=== PATIENT | male | born 1935 | race Caucasian/White ===

== ENCOUNTER 2017-01-27 11:03 | Inpatient (IN) | payer MEDICARE ==
[2017-01-27] VITALS (11 sets, daily range): BP systolic 91–108; BP diastolic 39–61
[~2017-01-27] VITALS: Ht 172.7 cm; Wt 82.2 kg
--- NOTE | 2017-01-27 11:06 | NUR ---
ARIC FROM HOME DUE TO ALTERED MENTAL STATUS SINCE THIS MORNING. PATIENT IS AAO3,HOWEVER PATIENT APPEARS IN MILD DISTRESS, SATING 91% ON ROOM AIR. NO CHEST PAINL. PT HAS LEFT HIP SX LAST December, IRASEMA STILL ON. NOTED WITH MULTIPLE OPEN WOUND ON LFA, BOTH HEELS AND BUTTOCKS. FC NOTED WITH DARK COLORE DEVIN. GOWNED PT AND PLACED ON TELE MONITOR.
[2017-01-27] MEDS ORDERED: ASPI81TA2 PO (11:17)
[2017-01-27] MEDS ORDERED: SPIR25TA4 PO (11:17)
[2017-01-27] MEDS ORDERED: TEMA15CA PO (11:17)
[2017-01-27] MEDS ORDERED: HYDR-3326 PO (11:17)
[2017-01-27] MEDS ORDERED: ALLO100T PO (11:17)
[2017-01-27] MEDS ORDERED: CARV6.252 PO (11:17)
[2017-01-27] MEDS ORDERED: POTA10TA15 PO (11:17)
[2017-01-27] MEDS ORDERED: PREG50CA PO (11:17)
[2017-01-27] MEDS ORDERED: LINA5TAB PO (11:17)
[2017-01-27] MEDS ORDERED: LEVO88TA5 PO ×2 (11:17)
[2017-01-27] MEDS ORDERED: AMIO200T2 PO (11:17)
[2017-01-27] MEDS ORDERED: ATOR40TA PO (11:17)
[2017-01-27] MEDS ORDERED: FURO40TA5 PO (11:17)
[2017-01-27] MEDS ORDERED: SERT50TA PO (11:17)
[2017-01-27] MEDS ORDERED: CHOL100044 PO (11:17)
[2017-01-27] MEDS ORDERED: TAMS-12 PO (11:17)
[2017-01-27] MEDS ORDERED: APIX2.5T PO (11:17)
[2017-01-27] MEDS ORDERED: IV NS 0.9% 500 ML IV ONE (11:21)
[2017-01-27] MEDS ORDERED: IV SET PRIMARY PUMP SET 1 EA INFUS.SET MC ONE ×2 (11:21→20:51)
[2017-01-27] MEDS ORDERED: IV NS 0.9% 2,000 ML ONE (11:21)
[2017-01-27 11:24] LABS: EOSINOPHILS # (AUTO) 0.1 /CMM (0.0-0.7); HEMOGLOBIN 8.8 g/dL (13.5-17.5); MONOCYTES # (AUTO) 0.5 /CMM (0.1-1.30); WHITE BLOOD COUNT (AUTO) 14.7 K/uL (4.3-11.0)
--- NOTE | 2017-01-27 11:26 | NUR ---
IV ACCESSED TO LEFT HAND,. BLOOD SAMPLE SENT
[2017-01-27 11:28] LABS: BASOPHILS # (AUTO) 0.3 /CMM (0.0-0.2); BASOPHILS % (AUTO) 1.9 % (0.0-2.0); EOSINOPHILS % (AUTO) 0.7 % (0.0-6.0); HEMATOCRIT 27 % (39-51); LYMPHOCYTES # (AUTO) 0.7 /CMM (0.8-4.8); MEAN CORPUSCULAR HEMOGLOBIN 28 PG (26.0-33.0); MEAN CORPUSCULAR HGB CONC 33 g/dl (31.0-36.0); MEAN CORPUSCULAR VOLUME 87 fL (80-96); MONOCYTES % (AUTO) 3.6 % (2.0-12.0); NEUTROPHILS # (AUTO) 13.1 /CMM (1.8-8.9); NEUTROPHILS % (AUTO) 88.8 % (43.0-81.0); PLATELET COUNT (AUTO) 250 /CMM (150-450); RDW COEFFICIENT OF VARIATION 23.4 (11.5-15.0); RED BLOOD CELL COUNT(AUTO) 3.11 MIL/uL (4.5-6.0)
[2017-01-27] MEDS ORDERED: CEFEPIME 1 GM in IV D5W 50 ML IV ONE (11:30)
[2017-01-27] MEDS ORDERED: IV NS 0.9% 1,000 ML BAG IV ONE (11:30)
[2017-01-27] MEDS ORDERED: VANCOMYCIN 1 GM in IV D5W 250 ML IV ONE (11:30)
[2017-01-27 11:40] LABS: INR 1.83 (0.87-1.13); PROTHROMBIN TIME 19.7 SECS (9.5-12.7)
[2017-01-27 11:49] LABS: ALANINE AMINOTRANSFERASE 43 U/L (12-78); ALBUMIN 2.1 g/dL (3.4-5.0); ALKALINE PHOSPHATASE 175 U/L (46-116); ASPARTATE AMINOTRANSFERASE 100 U/L (15-37); B-TYPE NATRIURETIC PEPTIDE 18520 PG/ML (0-125); BILIRUBIN,DIRECT 1.3 mg/dL (0.0-0.2); BILIRUBIN,TOTAL 2.3 mg/dL (0.2-1.0); CARBON DIOXIDE 24 mmol/L (21-32); CHLORIDE 107 mmol/L (98-107); CREATININE 2.4 mg/dL (0.6-1.3); GLUCOSE 88 mg/dL (74-106); SODIUM SERUM 137 mmol/L (136-145); TOTAL PROTEIN, SERUM 5.7 g/dL (6.4-8.2)
[2017-01-27 11:50] LABS: APPEARANCE,URINE CLOUDY (CLEAR); BILIRUBIN,URINE NEGATIVE (NEGATIVE); BLOOD, URINE 3+ Ery/uL (NEGATIVE); COLOR,URINE ORANGE (YELLOW); KETONES,URINE NEGATIVE (NEGATIVE); LEUKOCYTE ESTERASE ,URINE 2+ (NEGATIVE); NITRITE, URINE NEGATIVE (NEGATIVE); PH,URINE 5.5 (5.0-8.0); PROTEIN,URINE 2+ mg/dl (NEGATIVE); UGLUCOSE NEGATIVE (NEGATIVE)
[2017-01-27 11:51] LABS: POTASSIUM 5.2 mmol/L (3.5-5.1); UREA NITROGEN, BLOOD 101 mg/dL (7-18)
[2017-01-27 12:02] LABS: BACTERIA,URINE Few /HPF (None Seen); SQUAMOUS EPITHELIAL CELL,UR Few /HPF (None Seen); WBC,URINE TOO NUMEROUS TO COUN /HPF (0-3)
--- NOTE | 2017-01-27 12:33 | NUR ---
rt at bedside for cpap
[2017-01-27 12:35] LABS: ABG BASE EXCESS -4.1 mmol/L; ABG OXYGEN SATURATION 99.1 % (92.0-98.5); ABG PCO2 36.4 mmHg (35.0-45.0); ABG PH 7.373 (7.350-7.450); ABG PO2 335.2 mmHg (75.0-100.0); AaDO2 341.4 mmHg; COHb 1.8 % (0.5-1.5); MetHb 0.5 % (0.0-1.5); O2Hb 96.8 % (94.0-97.0); SITE, ABG Right Radial; VENT MODE, BG NRB @ 15LPM
--- NOTE | 2017-01-27 12:39 | NUR ---
RT POST ABG RESULTS SHOWN TO DR. CUEVAS. PLACED PT ON BiPAP PER MD ORDER WITH FOLLOWING SETTINGS: 15/5, BUR 12, 35% FiO2. TYSON RN NOTIFIED AND AWARE. WILL CONTINUE TO MONITOR THE PATIENT FOR ANY CHANGE OF CONDITION.
--- NOTE | 2017-01-27 12:41 | NUR ---
bipap setting 15/5, r12 fio2 35%
[2017-01-27] MEDS ORDERED: NOREPINEPHRINE 8 MG in IV D5W 500 ML IV ONE (13:00)
--- NOTE | 2017-01-27 15:42 | NUR ---
Pt on bed, on bipap as ordered, levo ongoing
--- NOTE | 2017-01-27 16:46 | NUR ---
Patient transported to icu via acls protocol. aware-- at bedside
--- NOTE | 2017-01-27 17:40 | NUR ---
SPEECH COMMUNICATION INSTRUCTOR PT ADMITTED INTO ICU FROM ER BY ROCCO WITH MONITOR. REPORT RECEIVED FROM AERIAL TRAM OPERATOR. PT ADMITTED FOR ALOC AND RESP DISTRESS. PT WAS ON BIPAP IN ER.
[2017-01-27] MEDS ORDERED: ONDANSETRON HCL/PF 4 MG/2 ML VIAL IVP PRN (18:00)
[2017-01-27] MEDS: TAMSULOSIN 0.4 MG CAP.SR.24H PO SCH (18:00)
[2017-01-27] MEDS ORDERED: PHENYLEPHRINE 20 MG in IV D5W 250 ML IV PRN (18:00)
[2017-01-27] MEDS ORDERED: MEROPENEM 1 G in IV NS 0.9% 100 ML IV SCH (18:00)
[2017-01-27] MEDS ORDERED: ATORVASTATIN 40 MG TABLET PO SCH (18:00)
[2017-01-27] MEDS ORDERED: ASPIRIN 81 MG TAB.CHEW PO SCH (18:00)
[2017-01-27] MEDS ORDERED: ACETAMINOPHEN 325 MG TABLET PO PRN (18:00)
[2017-01-27] MEDS ORDERED: BUMETANIDE INJ 0.25 MG/ML VIAL IV ONE (18:30)
[2017-01-27 18:36] LABS: ABG BASE EXCESS -3.3 mmol/L; ABG OXYGEN SATURATION 96.6 % (92.0-98.5); ABG PCO2 35.9 mmHg (35.0-45.0); ABG PH 7.389 (7.350-7.450); ABG PO2 95.1 mmHg (75.0-100.0); AaDO2 112.7 mmHg; COHb 2.2 % (0.5-1.5); MetHb 0.9 % (0.0-1.5); O2Hb 93.6 % (94.0-97.0); SITE, ABG Right Radial
[2017-01-27] MEDS ORDERED: FEE PK DOSING 1 MIN EA MC ONE (18:55)
--- NOTE | 2017-01-27 20:00 | NUR ---
RN INITIAL NOTE; PT ON BIPAP , 15/5 ,RR 12 ,FIO2 35 % , PT IS AROUSABLE TO VERBAL RESPONSE. NO ANY DISTRESS NOTED AT THIS TIME . WILL CONTINUE TO MONITOR .
[2017-01-27] MEDS: MEROPENEM 500 MG in IV NS 0.9% 50 ML IV SCH (20:50)
[2017-01-27] MEDS ORDERED: SECONDARY IV SET 1 EA INFUS.SET MC ONE (20:51)
[2017-01-27] MEDS ORDERED: IV NS 0.9% 250 ML IV ONE (20:51)
--- NOTE | 2017-01-27 21:46 | NUR ---
SPRINKLER WORKER NOTE; RECEIVED ORDER FROM DR MORALES TO CONTINUE LEVOPHED DRIP TO MAINTAIN BP ORDERED AND HOLD NEOSYNEPHRINE AT THIS TIME. RECEIVED ORDER FOR TYLENOL SUPP. PRN FOR FEVER.
[2017-01-27] MEDS ORDERED: NOREPINEPHRINE 8 MG in IV D5W 500 ML IV PRN (22:00)
[2017-01-27] MEDS ORDERED: ACETAMINOPHEN 650 MG/SUPP.RECT RC PRN (22:00)
[2017-01-27] MEDS: NOREPINEPHRINE 8 MG in IV D5W 500 ML IV PRN (22:03)
--- NOTE | 2017-01-27 22:04 | NUR ---
LOW ALTITUDE AIR DEFENSE GUNNER NOTE; PO MEDS SCHEDULED FOR 1800 NON ADMIN DUE TO PT UNABLE TO SWALLOW AT THIS TIME, DR MORALES NOTIFIED . CHARGE NURSE AWARE.
--- NOTE | 2017-01-27 22:07 | NUR ---
RECREATIONAL VEHICLE REPAIRER NOTE; REMOVED BIPAP BY RT , ON NASAL CANNULA 4 LPM AT THIS TIME . SPO2 100 % . NO DISTRESS . WILL CONTINUE TITRATION. ONGOING MONITOR .
--- NOTE | 2017-01-27 23:32 | NUR ---
ASSIGNMENT CHANGED REPORT GIVEN TO PATRICK MORA .
--- NOTE | 2017-01-27 23:50 | NUR ---
CASE ASSISTANT: PT RECEIVE AWAKE AND VERBALLY RESPONSIVE WT CONFUSION. ABLE TO FOLLOW SIMPLE COMMANDS. PLACED ON 2L 02 VIA NC WT NO ACUTE DISTRESS. NO C/O PAIN OR EVIDENCE OF DISCOMFORT. F/C CHANGED AND TOLERATED WELL DRAINING FROM PINK TINGED TO CLEAR YELLOW URINE. SR-SB ON MAGNETIC PROSPECTING SUPERVISOR. ON LEVOPHED AT 4MCG/MIN. AFEBRILE. SAFETY PRECAUTION NOTED. WILL CONTINUE TO MONITOR.
[2017-01-28] VITALS (87 sets, daily range): BP systolic 34–114; BP diastolic 17–64
[2017-01-28] MEDS ORDERED: NOREPINEPHRINE 4 MG/4 ML AMPUL IV ONE (03:07)
[2017-01-28] MEDS ORDERED: IV D5W 500 ML IV ONE (03:08)
[2017-01-28 04:42] LABS: EOSINOPHILS % (AUTO) 0.1 % (0.0-6.0); HEMATOCRIT 29 % (39-51); HEMOGLOBIN 9.6 g/dL (13.5-17.5); LYMPHOCYTES # (AUTO) 0.4 /CMM (0.8-4.8); LYMPHOCYTES % (AUTO) 2.7 % (20.0-44.0); MEAN CORPUSCULAR HEMOGLOBIN 29 PG (26.0-33.0); MEAN CORPUSCULAR HGB CONC 33 g/dl (31.0-36.0); MEAN CORPUSCULAR VOLUME 89 fL (80-96); MONOCYTES # (AUTO) 1.3 /CMM (0.1-1.30); MONOCYTES % (AUTO) 8.1 % (2.0-12.0); NEUTROPHILS # (AUTO) 14.2 /CMM (1.8-8.9); NEUTROPHILS % (AUTO) 89.1 % (43.0-81.0); PLATELET COUNT (AUTO) 284 /CMM (150-450); RDW COEFFICIENT OF VARIATION 26.6 (11.5-15.0); WHITE BLOOD COUNT (AUTO) 15.9 K/uL (4.3-11.0)
[2017-01-28 04:53] LABS: INR 1.72 (0.87-1.13); PROTHROMBIN TIME 19.1 SECS (9.5-12.7); SERUM AMMONIA 44 umol/L (11-32)
[2017-01-28 05:01] LABS: ALANINE AMINOTRANSFERASE 53 U/L (12-78); ALBUMIN 2.1 g/dL (3.4-5.0); ALKALINE PHOSPHATASE 177 U/L (46-116); ASPARTATE AMINOTRANSFERASE 100 U/L (15-37); BILIRUBIN,TOTAL 2.4 mg/dL (0.2-1.0); CARBON DIOXIDE 25 mmol/L (21-32); CHLORIDE 109 mmol/L (98-107); CREATININE 2.2 mg/dL (0.6-1.3); GLUCOSE 137 mg/dL (74-106); MAGNESIUM 2.1 mg/dL (1.8-2.4); PHOSPHORUS 4.8 mg/dL (2.5-4.9); POTASSIUM 3.8 mmol/L (3.5-5.1); SODIUM SERUM 143 mmol/L (136-145); TOTAL PROTEIN, SERUM 5.8 g/dL (6.4-8.2)
[2017-01-28 05:06] LABS: CHOLESTEROL 59 mg/dL (<200); HDL CHOLESTEROL 12 mg/dL (40-60); LDL 25 mg/dL (0-99); THYROID STIMULATING HORMONE 6.364 uIU/mL (0.358-3.74); TRIGLYCERIDES 61 mg/dL (30-150)
[2017-01-28 05:13] LABS: UREA NITROGEN, BLOOD 94 mg/dL (7-18)
--- NOTE | 2017-01-28 06:40 | NUR ---
TALENT ACQUISITION PARTNER: STILL ON LEVOPHED AT 6MCG/MIN. SR-SB ON MONITOR. REMAINED AT 2L 02 VIA NC WT NO ACUTE DISTRESS.
[2017-01-28] MEDS: NOREPINEPHRINE 8 MG in IV D5W 500 ML IV PRN (06:47)
[2017-01-28] MEDS ORDERED: NOREPINEPHRINE 8 MG in IV D5W 500 ML IV PRN (07:22)
[2017-01-28] MEDS ORDERED: IV SET PRIMARY PUMP SET 1 EA INFUS.SET MC ONE (07:25)
[2017-01-28] MEDS ORDERED: DoBUTamine 500 MG/250 ML PIGGYBACK IV ONE (07:30)
--- NOTE | 2017-01-28 07:30 | NUR ---
ROVING WINDER: pt.is very drowsy, oriented x2, no any pain, HR 50-60SB, Levophed gtt 6mcg/min now, O2 sat. over 94% on 2L n/c, all wounds dressings care is done client relationship consultant by report, charge nurse spoke with -ordered: start Dobutamine gtt with 5mcg, max 7mcg dose, after: titrate off Levophed, keep SBP over 90, see orders, pharmacy notified, RT is aware re EKG order
[2017-01-28] MEDS: MEROPENEM 500 MG in IV NS 0.9% 50 ML IV SCH ×2 (08:02→18:13)
--- NOTE | 2017-01-28 08:30 | NUR ---
CURTAIN FRAMER: pt.is A/Ox2, can follow commands, but weak, no c/o now, waiting wounds care consult, swallow evaluation, waiting Dobutamine bag/called to pharmacy again, EKG done: SB with 1st AVB
[2017-01-28] MEDS: PREGABALIN 25 MG CAPSULE PO SCH ×3 (08:39→17:11)
[2017-01-28] MEDS: SERTRALINE HCL 50 MG TABLET PO SCH (08:39)
[2017-01-28] MEDS: CHOLECALCIFEROL 1,000 UNIT TABLET (VIT D3) PO SCH (08:39)
[2017-01-28] MEDS: ALLOPURINOL 100 MG TABLET PO SCH (08:39)
[2017-01-28] MEDS: APIXABAN 2.5 MG TABLET PO SCH ×2 (08:40→17:10)
[2017-01-28] MEDS: DOBUTamine 500 MG in IV D5W 210 ML IV PRN ×2 (08:55→21:34)
[2017-01-28] MEDS ORDERED: CARVEDILOL 6.25 MG TABLET PO SCH (09:00)
[2017-01-28] MEDS ORDERED: AMIODARONE HCL 200 MG TABLET PO SCH (09:00)
--- NOTE | 2017-01-28 09:15 | NUR ---
BAND SCROLL SAW OPERATOR: notified pharmacist, Sandro: Dobutamine bag is 500mg/250ml, but this is IV pump option 500mg/300ml setting/unable to change, Corryw/c nurse evaluted pt./see new orders, L.hip w/culture
--- NOTE | 2017-01-28 09:30 | NUR ---
TWX OPERATOR: notified ST re christi eval.order
[2017-01-28] MEDS ORDERED: HYDROGEL DRESSING 90 GM TUBE TP PRN (10:00)
[2017-01-28] MEDS ORDERED: Z GUARD REMEDY 2 OZ OINT TP PRN (10:00)
[2017-01-28] MEDS ORDERED: HYDROGEL DRESSING 90 GM TUBE TP SCH (10:00)
--- NOTE | 2017-01-28 10:22 | NUR ---
CRIMP SETTER: continue titrate off Levophed gtt, is in room, updated with pt.current condition, pressor drips, VS, orders, wounds
--- NOTE | 2017-01-28 10:40 | NUR ---
TANNING SOLUTION MAKER: LENNY Siddiqui evaluated all pt.wounds, said: don't apply Hydrogel for sacral area, ordered Idosorb for heels, R.foot is little cold by touch, ordered for arterial dplr
--- NOTE | 2017-01-28 11:20 | NUR ---
OVER THE ROAD DRIVER: is in room, notified re pt.history, VS, pressors, respiratory status, orders, wounds
--- NOTE | 2017-01-28 11:40 | NUR ---
CORPORATE STAFF ACCOUNTANT: is in room, spoke with pt., updated with pt.current condition, Dobutamine gtt 7 mcg/kg/m, Levophed is off now, VS, I/O, swallow eval.pending, wounds status/Tx orders/L.hip wound with mykel bloody oozing/w/c done, pain level, see new orders
[2017-01-28] MEDS: VANCOMYCIN 0.75 GM in IV D5W 250 ML IV SCH (11:44)
[2017-01-28] MEDS: Z GUARD REMEDY 2 OZ OINT TP SCH (12:47)
[2017-01-28] MEDS ORDERED: DEXTROSE 50%-WATER 50 ML DISP.SYRIN IV PRN (13:30)
--- NOTE | 2017-01-28 13:42 | NUR ---
ROOMING HOUSE OPERATOR: overpaged ST again
[2017-01-28] MEDS: CADEXOMER IODINE 40 GM TUBE TP SCH (13:50)
--- NOTE | 2017-01-28 14:43 | NUR ---
RESISTOR TESTING MACHINE OPERATOR: checked feet tibial arteries with ultrasonic doppler: symmetric good pulse sounds
--- NOTE | 2017-01-28 15:25 | NUR ---
SEALS ENGRAVER: swallow evaluation is done by ST Dayana, ordered: pureed with nectar thick liquid diet
[2017-01-28] MEDS: TAMSULOSIN 0.4 MG CAP.SR.24H PO SCH (17:11)
[2017-01-28] MEDS: BLOOD SUGAR DIAGNOSTIC 1 EACH STRIP IN SCH ×2 (17:33→22:33)
--- NOTE | 2017-01-28 18:19 | NUR ---
LAW INSTRUCTOR: pt.is awake, can follow commands, no c/o, no pain, HR 50-62, SBP 90-100, Dobutamine gtt 7mcg/kg/min now, Levophed is off since 12.00, all wounds care is done per Chen,MULTILITH OPERATOR orders, PM care done, O2 sat. 91-98%, appetite is good/took 100% dinner, BS WNL, Riri, IDNP was in room, updated with all above
--- NOTE | 2017-01-28 19:30 | NUR ---
SENIOR TAX MANAGER: RECEIVED PT WT EYES CLOSED. ABLE TO OPEN EYES WHEN CALLED BY NAME AND CARRY ON CONVERSATION. ON 1L 02 VIA NC WT NO ACUTE DISTRESS. NO C/O PAIN. CONTINUE ON DOBUTAMINE GTT AT 7MCG/KG/MIN WT KEEP SBP ABOVE 90. AFEBRILE. SB ON MONOMER PURIFICATION OPERATOR WT HR IN 50s. F/C PATENT AND INTACT DRAINING CLEAR YELLOW URINE TO GRAVITY. HOB ON SEMI-PARRY'S. CALL LIGHT KEPT WITHIN REACH.
[2017-01-28] MEDS: IV NS 0.9% 250 ML IV PRN (20:27)
[2017-01-29] VITALS (62 sets, daily range): BP systolic 59–147; BP diastolic 15–79
[2017-01-29 04:34] LABS: EOSINOPHILS # (AUTO) 0.1 /CMM (0.0-0.7); EOSINOPHILS % (AUTO) 0.8 % (0.0-6.0); HEMATOCRIT 25 % (39-51); LYMPHOCYTES # (AUTO) 0.3 /CMM (0.8-4.8); LYMPHOCYTES % (AUTO) 2.7 % (20.0-44.0); MEAN CORPUSCULAR HEMOGLOBIN 29 PG (26.0-33.0); MEAN CORPUSCULAR HGB CONC 32 g/dl (31.0-36.0); MEAN CORPUSCULAR VOLUME 89 fL (80-96); MONOCYTES # (AUTO) 0.8 /CMM (0.1-1.30); MONOCYTES % (AUTO) 7.2 % (2.0-12.0); NEUTROPHILS # (AUTO) 9.7 /CMM (1.8-8.9); NEUTROPHILS % (AUTO) 89.3 % (43.0-81.0); PLATELET COUNT (AUTO) 194 /CMM (150-450); RDW COEFFICIENT OF VARIATION 26.7 (11.5-15.0); WHITE BLOOD COUNT (AUTO) 10.9 K/uL (4.3-11.0)
[2017-01-29 04:53] LABS: TROPONIN I 0.077 ng/mL (0.00-0.056)
[2017-01-29 04:59] LABS: ALANINE AMINOTRANSFERASE 46 U/L (12-78); ALBUMIN 1.9 g/dL (3.4-5.0); ALKALINE PHOSPHATASE 162 U/L (46-116); ASPARTATE AMINOTRANSFERASE 67 U/L (15-37); BILIRUBIN,TOTAL 2.1 mg/dL (0.2-1.0); CALCIUM, SERUM 7.8 mg/dL (8.5-10.1); CARBON DIOXIDE 27 mmol/L (21-32); CHLORIDE 108 mmol/L (98-107); GLUCOSE 93 mg/dL (74-106); PHOSPHORUS 4.2 mg/dL (2.5-4.9); POTASSIUM 3.4 mmol/L (3.5-5.1); SODIUM SERUM 142 mmol/L (136-145); TOTAL PROTEIN, SERUM 5.4 g/dL (6.4-8.2)
[2017-01-29 05:03] LABS: UREA NITROGEN, BLOOD 83 mg/dL (7-18)
[2017-01-29] MEDS: MEROPENEM 500 MG in IV NS 0.9% 50 ML IV SCH ×2 (06:27→18:37)
--- NOTE | 2017-01-29 06:55 | NUR ---
TROUT FARMER: PT REMAINED A/O X2. WAS PLACED ON R/A FOR A FEW MINUTES BUT DESAT. IN THE LOW 90s SO PLACED BACK ON 1L 02 VIA NC. NO ACUTE DISTRESS, NO C/O PAIN. STILL ON DOBUTAMINE GTT AT 7MCG/KG/MIN TO KEEP SBP ABOVE 90. SB WT HR IN THE 50s. . LEFT HIP SURGICAL SITE NOTED WT MODERATE BLEEDING. DRESSING CHANGED AND TOLERATED WELL. ABLE TO SWALLOW NTL WT NO S/S OF ASPIRATION. WT GOOD URINE OUTPUT. HOB ON SEMI-PARRY'S. SAFETY PRECAUTION NOTED.
--- NOTE | 2017-01-29 07:30 | NUR ---
ICU/RN: PT RECEIVED, A&OX3 WITH PERIODS OF FORGETFULNESS, SEVERE WEAKNESS NOTED ON BILAT UPPER AND LOWER EXTREMITIES. BREATHING EVEN AND UNLABORED ON O2 1L/MIN VIA NC, PT NOTED WITH NON-PRODUCTIVE COUGH. ON DOBUTAMINE DRIP 7MCG/KG/MIN. BILAT HEELS OFFLOADED, DRESSINGS C/D/I. WILL CONT TO MONITOR PT
--- NOTE | 2017-01-29 07:40 | NUR ---
ICU/RN: SIDNEY LOPEZ, RAIL OPERATOR AT THE BEDSIDE. UPDATED ON PT STATUS, DISCUSSED POC WITH PT. EXAMINED L HIP INCISIONS AND IRASEMA. PER RAIL OPERATOR, OK TO REMOVE IRASEMA STARTING FROM 9TH STAPLE DISTAL FROM L HIP INCISION. AWARE OF HEMATOMA AND SEROSANGUINEOUS DRAINAGE FROM PROXIMAL IRASEMA.
--- NOTE | 2017-01-29 08:00 | NUR ---
ICU/RN: DR DENTON [place], INFORMED DISTRICT COURT JUDGE OF NEED TO REQUEST FOR ORTHO CONSULT TO ASSESS L HIP INCISION AND IRASEMA PRIOR TO REMOVAL. SIDNEY LOPEZ NOTIFIED BY CRN. IRASEMA REMAIN INTACT ON PT.
[2017-01-29] MEDS: ALLOPURINOL 100 MG TABLET PO SCH (08:10)
[2017-01-29] MEDS: APIXABAN 2.5 MG TABLET PO SCH ×2 (08:10→17:06)
[2017-01-29] MEDS: PREGABALIN 25 MG CAPSULE PO SCH ×3 (08:10→17:03)
[2017-01-29] MEDS: SERTRALINE HCL 50 MG TABLET PO SCH (08:10)
[2017-01-29] MEDS: BLOOD SUGAR DIAGNOSTIC 1 EACH STRIP IN SCH ×4 (08:10→21:42)
[2017-01-29] MEDS: CHOLECALCIFEROL 1,000 UNIT TABLET (VIT D3) PO SCH (08:10)
[2017-01-29] MEDS: Z GUARD REMEDY 2 OZ OINT TP SCH (08:17)
[2017-01-29] MEDS: LEVOTHYROXINE SODIUM 88 MCG TABLET PO SCH (08:17)
[2017-01-29] MEDS: CADEXOMER IODINE 40 GM TUBE TP SCH (08:18)
[2017-01-29] MEDS: DOBUTamine 500 MG in IV D5W 210 ML IV PRN ×2 (09:39→21:53)
[2017-01-29] MEDS ORDERED: IV SET PRIMARY PUMP SET 1 EA INFUS.SET MC ONE ×3 (10:01→15:37)
[2017-01-29 10:04] LABS: THYROID STIMULATING HORMONE 6.346 uIU/mL (0.358-3.74)
[2017-01-29] MEDS ORDERED: NOREPINEPHRINE 8 MG in IV D5W 500 ML IV PRN (10:30)
[2017-01-29] MEDS ORDERED: POTASSIUM CHLORIDE 10 MEQ TABLET.SA PO ONE (11:00)
[2017-01-29] MEDS: VANCOMYCIN 0.75 GM in IV D5W 250 ML IV SCH (11:46)
[2017-01-29] MEDS ORDERED: SECONDARY IV SET 1 EA INFUS.SET MC ONE ×2 (12:10→18:32)
[2017-01-29] MEDS: INSULIN REGULAR, HUMAN 100 UNIT/ML 3 ML VIAL SQ PRN ×2 (12:31→17:42)
[2017-01-29] MEDS ORDERED: IV NS 0.9% 250 ML IV ONE (13:00)
--- NOTE | 2017-01-29 13:00 | NUR ---
ICU/RN: PT TOLERATED LUNCH WELL, NO S/S ASPIRATION. WILL CONT TO MONITOR PT.
--- NOTE | 2017-01-29 14:00 | NUR ---
ICU/RN: COMPLETE BED BATH AND WOUND CARE RENDERED. PT TOLERATED WELL. L HIP DRESSING MODERATELY SATURATED WITH SEROSANGUINEOUS DRAINAGE.
[2017-01-29] MEDS ORDERED: IV NS 0.9% 500 ML IV ONE (14:06)
[2017-01-29] MEDS: SOD FERRIC GLUC 125 MG in IV NS 0.9% 100 ML IV SCH (15:42)
[2017-01-29] MEDS: TAMSULOSIN 0.4 MG CAP.SR.24H PO SCH (17:03)
[2017-01-29] MEDS: LACTOBACILLUS RHAMNOSUS GG 1 EACH CAP.SPRINK PO SCH (17:03)
--- NOTE | 2017-01-29 19:05 | NUR ---
ICU/RN: PT SITTING IN BED, WATCHING TV, IN STABLE CONDITION, FC DRAINING WELL TO GRAVITY. CARE ENDORSED TO PM RN FOR DAMON.
--- NOTE | 2017-01-29 20:00 | NUR ---
THERAPY COORDINATOR: PLACED ON 2L 02 VIA NC 02 SAT NOTED BET. 90-94%. EYES CLOSED, ABLE TO OPEN EYES AND VERBALLY RESPONSIVE. NO C/O PAIN. ON LEVOPHED AT 5MCG/MIN AND DOBUTAMINE GTT AT 7MCG/KG/MIN. WILL TITRATE NEEDED. WILL CONTINUE TO MONITOR.
[2017-01-29] MEDS ORDERED: DOBUTamine 12.5 MG/ML VIAL IV ONE ×2 (21:34→22:28)
[2017-01-29] MEDS: IV NS 0.9% 250 ML IV PRN (21:51)
[2017-01-30] VITALS (90 sets, daily range): BP systolic 90–133; BP diastolic 38–94
[2017-01-30 04:57] LABS: EOSINOPHILS # (AUTO) 0.1 /CMM (0.0-0.7); EOSINOPHILS % (AUTO) 0.6 % (0.0-6.0); HEMATOCRIT 26 % (39-51); HEMOGLOBIN 8.3 g/dL (13.5-17.5); LYMPHOCYTES # (AUTO) 0.2 /CMM (0.8-4.8); LYMPHOCYTES % (AUTO) 1.7 % (20.0-44.0); MEAN CORPUSCULAR HEMOGLOBIN 28 PG (26.0-33.0); MEAN CORPUSCULAR HGB CONC 32 g/dl (31.0-36.0); MEAN CORPUSCULAR VOLUME 89 fL (80-96); MONOCYTES # (AUTO) 0.9 /CMM (0.1-1.30); MONOCYTES % (AUTO) 6.8 % (2.0-12.0); NEUTROPHILS # (AUTO) 11.6 /CMM (1.8-8.9); NEUTROPHILS % (AUTO) 90.9 % (43.0-81.0); PLATELET COUNT (AUTO) 189 /CMM (150-450); RED BLOOD CELL COUNT(AUTO) 2.92 MIL/uL (4.5-6.0); WHITE BLOOD COUNT (AUTO) 12.8 K/uL (4.3-11.0)
[2017-01-30 05:21] LABS: ALANINE AMINOTRANSFERASE 40 U/L (12-78); ALKALINE PHOSPHATASE 178 U/L (46-116); ASPARTATE AMINOTRANSFERASE 55 U/L (15-37); BILIRUBIN,TOTAL 2.1 mg/dL (0.2-1.0); CALCIUM, SERUM 7.7 mg/dL (8.5-10.1); CARBON DIOXIDE 25 mmol/L (21-32); CHLORIDE 106 mmol/L (98-107); CREATININE 1.8 mg/dL (0.6-1.3); GLUCOSE 104 mg/dL (74-106); LIPASE 260 U/L (73-393); MAGNESIUM 2.1 mg/dL (1.8-2.4); PHOSPHORUS 3.7 mg/dL (2.5-4.9); POTASSIUM 3.5 mmol/L (3.5-5.1); SODIUM SERUM 140 mmol/L (136-145); TOTAL PROTEIN, SERUM 5.4 g/dL (6.4-8.2); UREA NITROGEN, BLOOD 77 mg/dL (7-18)
[2017-01-30 06:00] LABS: LYMPHOCYTES % (MANUAL) 3 % (16-48); NEUTROPHILS % (MANUAL) 97 (42-76)
[2017-01-30] MEDS: MEROPENEM 500 MG in IV NS 0.9% 50 ML IV SCH (06:30)
--- NOTE | 2017-01-30 06:45 | NUR ---
RETIREMENT MANAGER: NO SIGNIFICANT DAMON DURING THE SHIFT. VS WITHIN HIS BASELINE. LEVOPHED TURNED OFF AT 0430. STILL ON DOBUTAMINE GTT AT 7MCG/KG/MIN. ALL NEEDS MET. WILL ENDORSE TO DAY SHIFT FOR CONTINUITY OF CARE.
[2017-01-30] MEDS ORDERED: FUROSEMIDE 20 MG/2 ML VIAL IV ONE (07:30)
[2017-01-30] MEDS: LEVOTHYROXINE SODIUM 88 MCG TABLET PO SCH (07:48)
[2017-01-30] MEDS: BLOOD SUGAR DIAGNOSTIC 1 EACH STRIP IN SCH ×4 (07:48→21:45)
[2017-01-30] MEDS: CHOLECALCIFEROL 1,000 UNIT TABLET (VIT D3) PO SCH (08:26)
[2017-01-30] MEDS: LACTOBACILLUS RHAMNOSUS GG 1 EACH CAP.SPRINK PO SCH ×2 (08:26→17:06)
[2017-01-30] MEDS: SERTRALINE HCL 50 MG TABLET PO SCH (08:26)
[2017-01-30] MEDS: PREGABALIN 25 MG CAPSULE PO SCH ×3 (08:26→17:06)
[2017-01-30] MEDS: POTASSIUM CHLORIDE 20 MEQ TAB.PRT.SR PO SCH ×3 (08:26→10:48)
[2017-01-30] MEDS: ALLOPURINOL 100 MG TABLET PO SCH (08:26)
[2017-01-30] MEDS: CADEXOMER IODINE 40 GM TUBE TP SCH (08:27)
[2017-01-30] MEDS: Z GUARD REMEDY 2 OZ OINT TP SCH (08:28)
[2017-01-30] MEDS: APIXABAN 2.5 MG TABLET PO SCH ×2 (09:24→17:06)
--- NOTE | 2017-01-30 09:57 | NUR ---
RETAIL GENERAL MANAGER PICC LINE DRESSING CHANGED BLOOD PRESSURE AT DESIRED LEVEL, DOBUTAMINE DRIP MAINTAINED
[2017-01-30] MEDS: VANCOMYCIN 1 GM in IV D5W 250 ML IV SCH (12:04)
[2017-01-30] MEDS: DOBUTamine 500 MG in IV D5W 210 ML IV PRN (12:04)
[2017-01-30] MEDS ORDERED: SECONDARY IV SET 1 EA INFUS.SET MC ONE ×2 (13:46→20:12)
[2017-01-30] MEDS: SOD FERRIC GLUC 125 MG in IV NS 0.9% 100 ML IV SCH (13:57)
[2017-01-30] MEDS: TAMSULOSIN 0.4 MG CAP.SR.24H PO SCH (17:06)
--- NOTE | 2017-01-30 20:00 | NUR ---
BOAT BUILDER AND REPAIRER - NOTES - PT RECEIVED, AO X3 WITH PERIODS OF FORGETFULNESS, PT HAS TREMORS NOTED IN BILAT UPPER AND SEVERE WEAKNESS IN LOWER EXTREMITIES. BREATHING EVEN AND UNLABORED ON O2 2L/MIN VIA NC, PT NOTED WITH NON-PRODUCTIVE COUGH. ON DOBUTAMINE DRIP 7MCG/KG/MIN. BILAT HEELS OFFLOADED, DRESSINGS C/D/I. WILL CONT TO MONITOR PT
[2017-01-30] MEDS: CEFEPIME 1 GM in IV D5W 50 ML IV SCH (20:02)
[2017-01-30] MEDS ORDERED: CEFEPIME 1 GM in IV D5W 50 ML IV SCH (21:00)
[2017-01-30] MEDS: INSULIN REGULAR, HUMAN 100 UNIT/ML 3 ML VIAL SQ PRN (21:46)
[2017-01-31] VITALS (55 sets, daily range): BP systolic 83–126; BP diastolic 31–97
[2017-01-31] MEDS: DOBUTamine 500 MG in IV D5W 210 ML IV PRN ×2 (01:30→13:23)
[2017-01-31 04:33] LABS: EOSINOPHILS % (AUTO) 0.1 % (0.0-6.0); HEMATOCRIT 27 % (39-51); HEMOGLOBIN 8.6 g/dL (13.5-17.5); LYMPHOCYTES # (AUTO) 0.2 /CMM (0.8-4.8); LYMPHOCYTES % (AUTO) 0.8 % (20.0-44.0); MEAN CORPUSCULAR HEMOGLOBIN 29 PG (26.0-33.0); MEAN CORPUSCULAR HGB CONC 32 g/dl (31.0-36.0); MEAN CORPUSCULAR VOLUME 90 fL (80-96); MONOCYTES % (AUTO) 5.7 % (2.0-12.0); NEUTROPHILS % (AUTO) 93.4 % (43.0-81.0); PLATELET COUNT (AUTO) 204 /CMM (150-450); RDW COEFFICIENT OF VARIATION 26.6 (11.5-15.0); RED BLOOD CELL COUNT(AUTO) 2.95 MIL/uL (4.5-6.0); WHITE BLOOD COUNT (AUTO) 18.2 K/uL (4.3-11.0)
[2017-01-31 05:15] LABS: CALCIUM, SERUM 7.9 mg/dL (8.5-10.1); CARBON DIOXIDE 30 mmol/L (21-32); CHLORIDE 105 mmol/L (98-107); CREATININE 1.7 mg/dL (0.6-1.3); GLUCOSE 93 mg/dL (74-106); MAGNESIUM 1.9 mg/dL (1.8-2.4); PHOSPHORUS 3.3 mg/dL (2.5-4.9); SODIUM SERUM 139 mmol/L (136-145); UREA NITROGEN, BLOOD 65 mg/dL (7-18)
[2017-01-31 05:57] LABS: LYMPHOCYTES % (MANUAL) 1 % (16-48); MONOCYTES % (MANUAL) 4 % (0-11.0); NEUTROPHILS % (MANUAL) 95 (42-76)
--- NOTE | 2017-01-31 08:00 | NUR ---
KELP CUTTER; ASSESSMENT RECEIVED AWAKE AND ORIENTED X2-3, FORGETFUL. PT ON 2 L NASAL CANULA. DOBUTAMINE 7MCG/KG/MIN FOR HEART RATE CONTROL WITH SET DOSE NO TITRATION PER DR WRIGHT CARDIOLOGY. PICC LINE TO RIGHT UPPER ARM ABLE TO FLUSH WELL WITH NO RESISTANCE AND WITH GOOD BLOOD RETURN. CARIAS CATH INTACT DRAINING TO GRAVITY CLEAR YELLOW URINE. NO ACUTE DISTRESS NOTED CALL LIGHT WITH IN REACH BED SET TO LOW POSITION.
[2017-01-31 08:23] LABS: ALBUMIN 2.2 g/dL (3.4-5.0); BILIRUBIN,DIRECT 1.5 mg/dL (0.0-0.2); BILIRUBIN,TOTAL 2.3 mg/dL (0.2-1.0)
[2017-01-31] MEDS: CHOLECALCIFEROL 1,000 UNIT TABLET (VIT D3) PO SCH (08:26)
[2017-01-31] MEDS: BLOOD SUGAR DIAGNOSTIC 1 EACH STRIP IN SCH ×4 (08:26→22:03)
[2017-01-31] MEDS: PREGABALIN 25 MG CAPSULE PO SCH ×3 (08:26→17:00)
[2017-01-31] MEDS: ALLOPURINOL 100 MG TABLET PO SCH (08:26)
[2017-01-31] MEDS: SERTRALINE HCL 50 MG TABLET PO SCH (08:26)
[2017-01-31] MEDS: LACTOBACILLUS RHAMNOSUS GG 1 EACH CAP.SPRINK PO SCH ×2 (08:26→17:40)
[2017-01-31] MEDS: APIXABAN 2.5 MG TABLET PO SCH ×2 (08:27→17:40)
[2017-01-31] MEDS: CADEXOMER IODINE 40 GM TUBE TP SCH (08:27)
[2017-01-31] MEDS: Z GUARD REMEDY 2 OZ OINT TP SCH (08:28)
[2017-01-31] MEDS ORDERED: SECONDARY IV SET 1 EA INFUS.SET MC ONE (09:05)
[2017-01-31] MEDS: FUROSEMIDE 40 MG/4 ML VIAL IV SCH ×2 (09:22→12:22)
[2017-01-31] MEDS: VANCOMYCIN 1 GM in IV D5W 250 ML IV SCH (12:21)
[2017-01-31] MEDS: SOD FERRIC GLUC 125 MG in IV NS 0.9% 100 ML IV SCH (15:34)
[2017-01-31] MEDS: TAMSULOSIN 0.4 MG CAP.SR.24H PO SCH (17:40)
[2017-01-31] MEDS: IV NS 0.9% 250 ML IV PRN (18:22)
--- NOTE | 2017-01-31 19:56 | NUR ---
CUSTOMER TRAINER - NOTES - PT RECEIVED, AO X3 WITH PERIODS OF FORGETFULNESS, PT HAS TREMORS NOTED IN BILAT UPPER AND SEVERE WEAKNESS IN LOWER EXTREMITIES. BREATHING EVEN AND UNLABORED ON O2 2L/MIN VIA NC, PT NOTED WITH NON-PRODUCTIVE COUGH. PT ON DOBUTAMINE 7MCG/KG/MIN FOR HEART RATE CONTROL WITH SET DOSE NO TITRATION PER DR WRIGHT CARDIOLOGY. PICC LINE TO RIGHT UPPER ARM ABLE TO FLUSH WELL WITH NO RESISTANCE AND WITH GOOD BLOOD RETURN. CARIAS CATH INTACT DRAINING TO GRAVITY CLEAR YELLOW URINE. BILAT HEELS OFFLOADED, DRESSINGS C/D/I. NO ACUTE DISTRESS NOTED CALL LIGHT WITH IN REACH BED SET TO LOW POSITION. WILL CONT TO MONITOR PT
[2017-01-31] MEDS: CEFEPIME 1 GM in IV D5W 50 ML IV SCH (20:01)
[2017-02-01] VITALS (48 sets, daily range): BP systolic 82–120; BP diastolic 27–79
[2017-02-01] MEDS: DOBUTamine 500 MG in IV D5W 210 ML IV PRN ×2 (02:40→16:12)
[2017-02-01 04:51] LABS: HEMATOCRIT 26 % (39-51); HEMOGLOBIN 8.3 g/dL (13.5-17.5); LYMPHOCYTES # (AUTO) 0.2 /CMM (0.8-4.8); LYMPHOCYTES % (AUTO) 0.8 % (20.0-44.0); MEAN CORPUSCULAR HEMOGLOBIN 29 PG (26.0-33.0); MEAN CORPUSCULAR HGB CONC 32 g/dl (31.0-36.0); MEAN CORPUSCULAR VOLUME 90 fL (80-96); MONOCYTES # (AUTO) 1.2 /CMM (0.1-1.30); MONOCYTES % (AUTO) 4.9 % (2.0-12.0); NEUTROPHILS # (AUTO) 22.3 /CMM (1.8-8.9); NEUTROPHILS % (AUTO) 94.3 % (43.0-81.0); PLATELET COUNT (AUTO) 166 /CMM (150-450); RDW COEFFICIENT OF VARIATION 25.6 (11.5-15.0); RED BLOOD CELL COUNT(AUTO) 2.89 MIL/uL (4.5-6.0); WHITE BLOOD COUNT (AUTO) 23.6 K/uL (4.3-11.0)
[2017-02-01 05:06] LABS: CALCIUM, SERUM 7.9 mg/dL (8.5-10.1); CARBON DIOXIDE 28 mmol/L (21-32); CHLORIDE 104 mmol/L (98-107); CREATININE 1.8 mg/dL (0.6-1.3); GLUCOSE 127 mg/dL (74-106); MAGNESIUM 1.8 mg/dL (1.8-2.4); PHOSPHORUS 3.1 mg/dL (2.5-4.9); POTASSIUM 3.9 mmol/L (3.5-5.1); SODIUM SERUM 137 mmol/L (136-145); UREA NITROGEN, BLOOD 67 mg/dL (7-18)
[2017-02-01 05:54] LABS: BAND % (MANUAL) 4 % (0.0-5.0); MONOCYTES % (MANUAL) 2 % (0-11.0); NEUTROPHILS % (MANUAL) 94 (42-76)
[2017-02-01] MEDS: BLOOD SUGAR DIAGNOSTIC 1 EACH STRIP IN SCH ×4 (07:43→22:03)
--- NOTE | 2017-02-01 07:45 | NUR ---
ICU/RN INITIAL NOTES,AM RECEIVED PT ALERT, AWAKE WITH PERIODS OF FORGETFULNESS. PT FOLLOWS COMMANDS, UPPER EXTREMITY TREMORS NOTED. PT ON NASAL CANULA, 2 LITERS, NO ACUTE DISTRESS NOTED, MAINTAINING 02 SAT >92%. PT SINUS OF TELE, WITH FIRST DEGREE AV BLOCK. DOBUTAMINE 7MCG INFUSING VIA PICC LINE. PICC PATENT AND INTACT, NO S/S OF INFECTION OR INFILTRATION NOTED. CARIAS CATH IN PLACE, MINIMAL URINE OUTPUT NOTED. PT ON PUREE DIET. PT WILL BE TURNED AND REPOSITIONED Q 2 HOURS AND NEEDED. BED IN LOW POSITION, SIDE RAILS UP, CALL LIGHT WITHIN REACH. PT ON LOW AIR LOSS MATTRESS FOR SKIN PROTECTION.
[2017-02-01] MEDS ORDERED: NOREPINEPHRINE 8 MG in IV D5W 500 ML IV PRN (08:30)
[2017-02-01] MEDS: VIT B CMPLX 3/FA/VIT C/BIOTIN 1 TAB TABLET PO SCH (08:33)
[2017-02-01] MEDS: APIXABAN 2.5 MG TABLET PO SCH ×2 (08:33→16:12)
[2017-02-01] MEDS: CHOLECALCIFEROL 1,000 UNIT TABLET (VIT D3) PO SCH (08:33)
[2017-02-01] MEDS: ALLOPURINOL 100 MG TABLET PO SCH (08:33)
[2017-02-01] MEDS: PREGABALIN 25 MG CAPSULE PO SCH ×3 (08:33→16:06)
[2017-02-01] MEDS: LACTOBACILLUS RHAMNOSUS GG 1 EACH CAP.SPRINK PO SCH ×2 (08:33→16:06)
[2017-02-01] MEDS: SERTRALINE HCL 50 MG TABLET PO SCH (08:33)
[2017-02-01] MEDS: CADEXOMER IODINE 40 GM TUBE TP SCH (09:00)
[2017-02-01] MEDS: Z GUARD REMEDY 2 OZ OINT TP SCH (09:10)
[2017-02-01] MEDS: FUROSEMIDE 100 MG/10 ML VIAL IV SCH ×3 (09:11→16:06)
[2017-02-01 10:44] LABS: LYMPHOCYTES % (MANUAL) 0 % (16-48)
[2017-02-01] MEDS: VANCOMYCIN 1 GM in IV D5W 250 ML IV SCH (12:20)
[2017-02-01] MEDS: IV NS 0.9% 250 ML IV PRN (14:43)
--- NOTE | 2017-02-01 16:00 | NUR ---
ICU/RN: AND AT BEDSIDE, PT ASSESSED, POSSIBLE WOUND DEBRIDEMENT TUESDAY, CONSENT OBTAINED FROM AND IN CHART. WOUND CARE DONE ORDERED.
[2017-02-01] MEDS: SOD FERRIC GLUC 125 MG in IV NS 0.9% 100 ML IV SCH (16:01)
[2017-02-01] MEDS ORDERED: IV SET PRIMARY 1 EA INFUS.SET MC ONE (17:53)
[2017-02-01] MEDS: TAMSULOSIN 0.4 MG CAP.SR.24H PO SCH (17:57)
[2017-02-01] MEDS ORDERED: IV SET PRIMARY PUMP SET 1 EA INFUS.SET MC ONE (18:08)
--- NOTE | 2017-02-01 19:09 | NUR ---
ICU/RN ENDING NOTES,AM REPORT ENDORSED TO NIGHT NURSE FOR CONTINUATION OF CARE. PT ON NASAL CANULA, NO DISTRESS NOTED, MAINTAINING 02 SAT >92%. PT ALERT, FOLLOWS COMMANDS. ALL NEEDS MET, PT BATHED, WOUND CARE DONE, TURNED AND REPOSITIONED. SAFETY MEASURES TAKEN, BED IN LOW POSITION, SIDE RAILS UP.
--- NOTE | 2017-02-01 20:20 | NUR ---
PT HAD A LARGE SOFT BROWN BM, BED BATH GIVEN, LINENS CHANGED
[2017-02-01] MEDS: CEFEPIME 1 GM in IV D5W 50 ML IV SCH (20:40)
--- NOTE | 2017-02-01 22:00 | NUR ---
IT IS DIFFICULT TO GET AN 02SAT READING WITH GOOD WAVEFORM ON PT BECAUSE OF TREMORS BUT 02SAT HAS BEEN BETWEEN 88-94%, SO I PLACED PT ON NONREBREATHER FOR COMFORT, PT HAVING SOME SOB WHEN SPEAKING, LUNG SOUNDS CLEAR, PT HAS BEEN GETTING DIURESED FOR LAST 3 DAYS, WILL CONTINUE TO MONITOR
[2017-02-02] VITALS (57 sets, daily range): BP systolic 28–133; BP diastolic 21–86
[2017-02-02] MEDS: DOBUTamine 500 MG in IV D5W 210 ML IV PRN ×2 (04:22→20:54)
[2017-02-02 04:54] LABS: HEMATOCRIT 25 % (39-51); LYMPHOCYTES # (AUTO) 0.2 /CMM (0.8-4.8); MEAN CORPUSCULAR HEMOGLOBIN 29 PG (26.0-33.0); MEAN CORPUSCULAR HGB CONC 32 g/dl (31.0-36.0); MEAN CORPUSCULAR VOLUME 90 fL (80-96); MONOCYTES % (AUTO) 5.2 % (2.0-12.0); NEUTROPHILS # (AUTO) 17.2 /CMM (1.8-8.9); NEUTROPHILS % (AUTO) 93.8 % (43.0-81.0); PLATELET COUNT (AUTO) 143 /CMM (150-450); RDW COEFFICIENT OF VARIATION 26.2 (11.5-15.0); WHITE BLOOD COUNT (AUTO) 18.3 K/uL (4.3-11.0)
[2017-02-02 05:18] LABS: CALCIUM, SERUM 8.2 mg/dL (8.5-10.1); CARBON DIOXIDE 25 mmol/L (21-32); CHLORIDE 103 mmol/L (98-107); GLUCOSE 97 mg/dL (74-106); POTASSIUM 3.9 mmol/L (3.5-5.1); SODIUM SERUM 135 mmol/L (136-145)
[2017-02-02 05:23] LABS: PHOSPHORUS 3.4 mg/dL (2.5-4.9); UREA NITROGEN, BLOOD 75 mg/dL (7-18)
[2017-02-02] MEDS: BLOOD SUGAR DIAGNOSTIC 1 EACH STRIP IN SCH ×4 (07:43→23:20)
[2017-02-02] MEDS: LEVOTHYROXINE SODIUM 88 MCG TABLET PO SCH (07:43)
--- NOTE | 2017-02-02 07:54 | NUR ---
ICU/RN INITIAL NOTES,AM RECEIVED PT AWAKE, CONFUSED. PT FOLLOWS COMMANDS, UPPER EXTREMITY TREMORS NOTED. PT ON NASAL CANULA 4 LITERS, NO ACUTE DISTRESS NOTED, MAINTAINING 02 SAT >92%. PT SINUS OF TELE, WITH FIRST DEGREE AV BLOCK. DOBUTAMINE 7MCG INFUSING VIA PICC LINE PER MD ORDERS WILL BE TITRATING OFF. PICC PATENT AND INTACT, NO S/S OF INFECTION OR INFILTRATION NOTED. CARIAS CATH IN PLACE, MINIMAL URINE OUTPUT NOTED. PT ON PUREE DIET. PT WILL BE TURNED AND REPOSITIONED Q 2 HOURS AND NEEDED. BED IN LOW POSITION, SIDE RAILS UP, CALL LIGHT WITHIN REACH. PT ON LOW AIR LOSS MATTRESS FOR SKIN PROTECTION.
[2017-02-02] MEDS: LACTOBACILLUS RHAMNOSUS GG 1 EACH CAP.SPRINK PO SCH ×2 (09:16→17:00)
[2017-02-02] MEDS: PREGABALIN 25 MG CAPSULE PO SCH ×3 (09:16→17:29)
[2017-02-02] MEDS: CHOLECALCIFEROL 1,000 UNIT TABLET (VIT D3) PO SCH (09:16)
[2017-02-02] MEDS: VIT B CMPLX 3/FA/VIT C/BIOTIN 1 TAB TABLET PO SCH (09:16)
[2017-02-02] MEDS: SERTRALINE HCL 50 MG TABLET PO SCH (09:16)
[2017-02-02] MEDS: ALLOPURINOL 100 MG TABLET PO SCH (09:17)
[2017-02-02] MEDS: APIXABAN 2.5 MG TABLET PO SCH ×2 (09:18→17:29)
[2017-02-02] MEDS: CADEXOMER IODINE 40 GM TUBE TP SCH (09:18)
[2017-02-02] MEDS: Z GUARD REMEDY 2 OZ OINT TP SCH (09:18)
--- NOTE | 2017-02-02 12:00 | NUR ---
ICU/RN: DEAN FREY AT BEDSIDE TO ASSESS LEFT HIP INCISION. PER ASSESSMENT NO S/S OF INFECTION NOTED YET THE IRASEMA NEED TO BE REMOVED WITH THE OK OF THE OPERATING DOCTOR (). WILL CALL MD TO GET OK.
[2017-02-02] MEDS: VANCOMYCIN 1 GM in IV D5W 250 ML IV SCH (12:36)
[2017-02-02] MEDS: SOD FERRIC GLUC 125 MG in IV NS 0.9% 100 ML IV SCH (14:32)
--- NOTE | 2017-02-02 17:00 | NUR ---
ICU/RN: PT REFUSES TO EAT, SPITS FOOD OUT.
[2017-02-02] MEDS: TAMSULOSIN 0.4 MG CAP.SR.24H PO SCH (17:29)
[2017-02-02] MEDS: MEROPENEM 500 MG in IV NS 0.9% 50 ML IV SCH (18:10)
--- NOTE | 2017-02-02 19:00 | NUR ---
ICU/RN: PT NOTICED TO BE MORE LETHARGIC AND DIFFICULT TO AROUSE COMPARED TO BEHAVIOR DURING DAY. BLOOD GLUCOSE CHECKED 103, ORDERS OBTAINED FOR ABG, WILL CONTINUE TO MONITOR.
[2017-02-02 19:25] LABS: ABG OXYGEN SATURATION 94.4 % (92.0-98.5); ABG PCO2 36.7 mmHg (35.0-45.0); ABG PH 7.355 (7.350-7.450); ABG PO2 81.2 mmHg (75.0-100.0); AaDO2 197.9 mmHg; COHb 2.1 % (0.5-1.5); O2Hb 91.5 % (94.0-97.0); SITE, ABG Left Radial; VENT MODE, BG nasal cannula
[2017-02-02] MEDS ORDERED: IV SET PRIMARY PUMP SET 1 EA INFUS.SET MC ONE ×2 (19:38→20:55)
--- NOTE | 2017-02-02 19:43 | NUR ---
ICU/RN ENDING NOTES,AM REPORT ENDORSED TO NIGHT NURSE FOR CONTINUATION OF CARE. ALL NEEDS MET. PT ON NASAL CANULA, NO ACUTE RESPIRATORY DISTRESS NOTED. PT NOTED TO BE MORE LETHARGIC AND DROWSY, NIGHT RN MADE AWARE OF CHANGE WILL INFORM PRIMARY MD. PT BATHED, TURNED AND REPOSITIONED Q 2 HOURS. SAFETY MEASURES TAKEN, BED IN LOW POSITION, SIDE RAILS UP, CALL LIGHT WITHIN REACH.
[2017-02-02] MEDS: IV NS 0.9% 250 ML IV PRN (20:23)
[2017-02-02] MEDS: METRONIDAZOLE 500MG/ NS 100ML 500 MG in PREMIX 1 EA IV SCH (20:25)
[2017-02-02] MEDS: NOREPINEPHRINE 8 MG in IV D5W 500 ML IV PRN (20:32)
--- NOTE | 2017-02-02 20:32 | NUR ---
PRESCRIPTIONIST: LEVOPHED STARTED FOR SBP 79 .
--- NOTE | 2017-02-02 20:50 | NUR ---
YARD ENGINEER PTS SBP 72 , DOBUTAMINE STARTED PER MD GABINO PATRICK LEVOPHED Addendum: 02/03/17 at 0203 by MIKE GRADY RN DOBUTAMINE NOT GIVEN , MARKED NON ADMINISTERED ON EMAR . PER DR WRIGHT'S NOTE ANA LILIA Najera/C
--- NOTE | 2017-02-02 22:42 | NUR ---
FREIGHT WEIGHER: PT [id number] % , HOB ELEVATED AND ENCOURAGED PT TO EXPECTORATE SECRETIONS . SUCTIONED NEEDED. YELLOW THICK SECRETIONS NOTED. O2 INCREASED AND PT DENIED SOB.
[2017-02-03] VITALS (89 sets, daily range): BP systolic 32–129; BP diastolic 21–96
--- NOTE | 2017-02-03 02:00 | NUR ---
MEDICAL CARE ADMINISTRATOR UNABLE TO INSERT GT DUE TO OBSTRUCTION . ABDOMEN DISTENDED BUT SOFT WITH HYPO ACTIVE BS. CALLED WOOD MACHINE CARVER MD Addendum: 02/03/17 at 0202 by MIKE GRADY RN ERROR PLEASE VOID ENTRY , WRONG PATIENT
--- NOTE | 2017-02-03 03:18 | NUR ---
MONUMENT INSTALLER : PT DESATURATING . PT NOTED TO BE A MOUTH BREATHER . PLACED ON SIMPLE MASK AT 9L . HOB ELEVATED. O2 SAT INCREASED. WILL CONT TO MONITOR.
[2017-02-03 04:54] LABS: HEMATOCRIT 29 % (39-51); HEMOGLOBIN 9.4 g/dL (13.5-17.5); LYMPHOCYTES # (AUTO) 0.2 /CMM (0.8-4.8); LYMPHOCYTES % (AUTO) 0.7 % (20.0-44.0); MEAN CORPUSCULAR HEMOGLOBIN 29 PG (26.0-33.0); MEAN CORPUSCULAR HGB CONC 32 g/dl (31.0-36.0); MEAN CORPUSCULAR VOLUME 90 fL (80-96); MONOCYTES % (AUTO) 4.2 % (2.0-12.0); NEUTROPHILS # (AUTO) 22.6 /CMM (1.8-8.9); NEUTROPHILS % (AUTO) 95.1 % (43.0-81.0); PLATELET COUNT (AUTO) 235 /CMM (150-450); RED BLOOD CELL COUNT(AUTO) 3.23 MIL/uL (4.5-6.0); WHITE BLOOD COUNT (AUTO) 23.8 K/uL (4.3-11.0)
[2017-02-03 05:01] LABS: CALCIUM, SERUM 8.7 mg/dL (8.5-10.1); CARBON DIOXIDE 24 mmol/L (21-32); CHLORIDE 101 mmol/L (98-107); CREATININE 2.3 mg/dL (0.6-1.3); GLUCOSE 156 mg/dL (74-106); MAGNESIUM 2.1 mg/dL (1.8-2.4); PHOSPHORUS 4.6 mg/dL (2.5-4.9); POTASSIUM 4.5 mmol/L (3.5-5.1); SODIUM SERUM 134 mmol/L (136-145); UREA NITROGEN, BLOOD 79 mg/dL (7-18)
[2017-02-03] MEDS: NOREPINEPHRINE 8 MG in IV D5W 500 ML IV PRN (05:08)
[2017-02-03] MEDS: METRONIDAZOLE 500MG/ NS 100ML 500 MG in PREMIX 1 EA IV SCH ×3 (05:15→21:09)
[2017-02-03 05:47] LABS: LYMPHOCYTES % (MANUAL) 2 % (16-48); MONOCYTES % (MANUAL) 3 % (0-11.0); NEUTROPHILS % (MANUAL) 95 (42-76)
--- NOTE | 2017-02-03 06:00 | NUR ---
CARGO SERVICES COORDINATOR: PT DESATURATED AFTER BED BATH , PLACED ON NON-REBREATHER 15L. DR WRIGHT AT BEDSIDE ASSESSED PT.
[2017-02-03] MEDS: MEROPENEM 500 MG in IV NS 0.9% 50 ML IV SCH ×2 (06:08→18:01)
[2017-02-03] MEDS ORDERED: IV NS 0.9% 500 ML IV ONE (06:28)
--- NOTE | 2017-02-03 06:56 | NUR ---
PAD MACHINE OPERATOR : CVP MONITORING SET-UP , FIRST READING 18 , DR WRIGHT AWARE. DR WRIGHT REQUESTED ABG TO BE DONE STAT .
[2017-02-03 07:14] LABS: ABG BASE EXCESS -6.2 mmol/L; ABG OXYGEN SATURATION 94.6 % (92.0-98.5); ABG PCO2 41.5 mmHg (35.0-45.0); ABG PH 7.298 (7.350-7.450); AaDO2 183.4 mmHg; COHb 1.8 % (0.5-1.5); MetHb 0.8 % (0.0-1.5); O2Hb 92.1 % (94.0-97.0); SITE, ABG Left Radial; VENT MODE, BG SIMPLE MASK
[2017-02-03] MEDS: BLOOD SUGAR DIAGNOSTIC 1 EACH STRIP IN SCH ×4 (07:42→22:39)
[2017-02-03] MEDS: INSULIN REGULAR, HUMAN 100 UNIT/ML 3 ML VIAL SQ PRN ×4 (07:47→22:38)
[2017-02-03] MEDS: CHOLECALCIFEROL 1,000 UNIT TABLET (VIT D3) PO SCH (08:52)
[2017-02-03] MEDS: ALLOPURINOL 100 MG TABLET PO SCH (08:52)
[2017-02-03] MEDS: LACTOBACILLUS RHAMNOSUS GG 1 EACH CAP.SPRINK PO SCH ×2 (08:52→16:57)
[2017-02-03] MEDS: VIT B CMPLX 3/FA/VIT C/BIOTIN 1 TAB TABLET PO SCH (08:52)
[2017-02-03] MEDS: PREGABALIN 25 MG CAPSULE PO SCH ×3 (08:52→16:57)
[2017-02-03] MEDS: CADEXOMER IODINE 40 GM TUBE TP SCH (08:53)
[2017-02-03] MEDS: Z GUARD REMEDY 2 OZ OINT TP SCH (08:53)
[2017-02-03] MEDS: SERTRALINE HCL 50 MG TABLET PO SCH (08:53)
[2017-02-03] MEDS: APIXABAN 2.5 MG TABLET PO SCH ×2 (08:54→16:57)
[2017-02-03] MEDS ORDERED: BUMETANIDE INJ 4 MG in IV NS 0.9% 24 ML IV ONE (09:30)
[2017-02-03] MEDS ORDERED: methylPREDNISolone SOD SUCC 40 MG/ML VIAL IV ONE (09:30)
[2017-02-03] MEDS ORDERED: SECONDARY IV SET 1 EA INFUS.SET MC ONE (09:47)
[2017-02-03] MEDS: VANCOMYCIN 1 GM in IV D5W 250 ML IV SCH (11:45)
[2017-02-03] MEDS: NOREPINEPHRINE 16 MG in IV D5W 500 ML IV PRN (11:56)
--- NOTE | 2017-02-03 14:15 | NUR ---
AUTISM TEACHER' SEEN AND EXAMINED BY DR. LUCIA DRESSING DONE
[2017-02-03] MEDS: TAMSULOSIN 0.4 MG CAP.SR.24H PO SCH (16:57)
[2017-02-03 17:07] LABS: ABG BASE EXCESS -5.6 mmol/L; ABG OXYGEN SATURATION 95.6 % (92.0-98.5); ABG PCO2 38.3 mmHg (35.0-45.0); ABG PH 7.331 (7.350-7.450); ABG PO2 87.8 mmHg (75.0-100.0); AaDO2 182.3 mmHg; COHb 1.6 % (0.5-1.5); MetHb 0.6 % (0.0-1.5); O2Hb 93.5 % (94.0-97.0); SITE, ABG Right Radial; VENT MODE, BG Simple Mask
--- NOTE | 2017-02-03 17:57 | NUR ---
BPM DEVELOPER ORTHOSURGEON OF THE PATIENT FROM OUTSIDE PERMITTED TO REMOVE THE LOWER PART OF IRASEMA CAN REMOVED THE UPPER PART IRASEMA ONCE DRY
--- NOTE | 2017-02-03 18:36 | NUR ---
RESIDENTIAL NURSE STILL ON SIMPLE MASK MAINTAINED ON LEVOPHED, TRYING TO TITRATE MONITORED BLOOD PRESSURE CLOSELY NO OTHER UNTOWARD PROBLEM SEEN AT THIS TIME INFORMED INFECTIOUS SALVAGE CUTTER REGARDING REMOVAL OF IRASEMA ENDORSED TO NOD
--- NOTE | 2017-02-03 20:00 | NUR ---
ICU/RN RECEIVED PT AWAKE ALERT ORIENTED TO PER AND PLACE,EASILY GETS DISORIENTED AND CONFUSED AT TIMES.RE-ORIENTED TO TIME AND SURROUNDINGS.ON LEVOPHED DRIP AT 16MCG/MIN.DENIES PAIN OR DISCOMFORT.CVP CALIBRATED AND ZEROED W/ READING OF [id number].LUNGS SOUND W/ SCATTERED COARSE RHONCHI.MONITOR SHOWS NSR NO ECTOPICS.
[2017-02-04] VITALS (60 sets, daily range): BP systolic 71–132; BP diastolic 39–71
[2017-02-04] MEDS ORDERED: NOREPINEPHRINE 4 MG/4 ML AMPUL IV ONE (02:02)
[2017-02-04] MEDS ORDERED: IV D5W 500 ML IV ONE (02:03)
[2017-02-04] MEDS: NOREPINEPHRINE 16 MG in IV D5W 500 ML IV PRN ×2 (02:18→08:44)
[2017-02-04] MEDS: IV NS 0.9% 250 ML IV PRN (02:18)
--- NOTE | 2017-02-04 03:00 | NUR ---
ICU/RN SLEEPING BUT AROUSES EASILY.REPOSITIONED.DENIES PAIN OR DISCOMFORT.REMAINS ON LEVOPHED DRIP,DECREASED TO 14MCG/MIN. W//SBP OF 112MMHG.
[2017-02-04] MEDS: IV NS 0.9% 500 ML IV PRN (04:55)
[2017-02-04 04:56] LABS: HEMATOCRIT 28 % (39-51); HEMOGLOBIN 9.1 g/dL (13.5-17.5); LYMPHOCYTES # (AUTO) 0.2 /CMM (0.8-4.8); LYMPHOCYTES % (AUTO) 1.4 % (20.0-44.0); MEAN CORPUSCULAR HEMOGLOBIN 29 PG (26.0-33.0); MEAN CORPUSCULAR HGB CONC 33 g/dl (31.0-36.0); MEAN CORPUSCULAR VOLUME 90 fL (80-96); MONOCYTES # (AUTO) 0.6 /CMM (0.1-1.30); MONOCYTES % (AUTO) 4.3 % (2.0-12.0); NEUTROPHILS % (AUTO) 94.3 % (43.0-81.0); PLATELET COUNT (AUTO) 230 /CMM (150-450); RDW COEFFICIENT OF VARIATION 26.1 (11.5-15.0); WHITE BLOOD COUNT (AUTO) 13.7 K/uL (4.3-11.0)
[2017-02-04] MEDS: METRONIDAZOLE 500MG/ NS 100ML 500 MG in PREMIX 1 EA IV SCH ×3 (04:56→21:04)
[2017-02-04 05:19] LABS: ALANINE AMINOTRANSFERASE 33 U/L (12-78); ALKALINE PHOSPHATASE 161 U/L (46-116); ASPARTATE AMINOTRANSFERASE 33 U/L (15-37); BILIRUBIN,TOTAL 2.2 mg/dL (0.2-1.0); CARBON DIOXIDE 24 mmol/L (21-32); CHLORIDE 100 mmol/L (98-107); CREATININE 2.2 mg/dL (0.6-1.3); GLUCOSE 210 mg/dL (74-106); PHOSPHORUS 5.2 mg/dL (2.5-4.9); SODIUM SERUM 133 mmol/L (136-145); TOTAL PROTEIN, SERUM 5.6 g/dL (6.4-8.2)
[2017-02-04 05:26] LABS: TROPONIN I 0.054 ng/mL (0.00-0.056)
[2017-02-04 05:40] LABS: UREA NITROGEN, BLOOD 84 mg/dL (7-18)
[2017-02-04 05:46] LABS: LYMPHOCYTES % (MANUAL) 2 % (16-48); MONOCYTES % (MANUAL) 6 % (0-11.0); NEUTROPHILS % (MANUAL) 92 (42-76)
[2017-02-04] MEDS: MEROPENEM 500 MG in IV NS 0.9% 50 ML IV SCH ×2 (06:45→18:10)
[2017-02-04] MEDS ORDERED: BUMETANIDE INJ 16 MG in IV NS 0.9% 16 ML IV ONE (07:30)
[2017-02-04] MEDS ORDERED: VANCOMYCIN 1 GM in IV D5W 250 ML IV SCH (08:00)
--- NOTE | 2017-02-04 08:00 | NUR ---
ICU/RN PT IS ON 10L SIMPLE MASK,SAT O2-97%.SOB,VERY WEAK ,EYES CLOSED,REACTIVE ON PAIN AND TOUCH STIMULATIONS .GENERALIZED EDEMA PRESENT.PICC LINE ON THE RIGHT UPPER ARM.PT IS ON LEVOPHED.F/C DRAINING WITH MINIMAL AMOUNT OF YELLOW URINE.MULTIPLY BRUISES AND SKIN TEARS NOTED ALL OVER THE BODY,BILATERAL LOWER LEGS WOUNDS AND LOWER BACK COVERED WITH DRESSING.LABS REVIEW.REPOSITION FOR COMFORT.
[2017-02-04] MEDS ORDERED: SECONDARY IV SET 1 EA INFUS.SET MC ONE (08:06)
[2017-02-04] MEDS ORDERED: IV SET PRIMARY PUMP SET 1 EA INFUS.SET MC ONE (08:06)
[2017-02-04] MEDS: BLOOD SUGAR DIAGNOSTIC 1 EACH STRIP IN SCH ×4 (08:13→22:18)
[2017-02-04] MEDS: ALLOPURINOL 100 MG TABLET PO SCH (08:14)
[2017-02-04] MEDS: LACTOBACILLUS RHAMNOSUS GG 1 EACH CAP.SPRINK PO SCH ×2 (08:14→16:31)
[2017-02-04] MEDS: PREGABALIN 25 MG CAPSULE PO SCH ×3 (08:14→16:31)
[2017-02-04] MEDS: VIT B CMPLX 3/FA/VIT C/BIOTIN 1 TAB TABLET PO SCH (08:14)
[2017-02-04] MEDS: CHOLECALCIFEROL 1,000 UNIT TABLET (VIT D3) PO SCH (08:14)
[2017-02-04] MEDS: SERTRALINE HCL 50 MG TABLET PO SCH (08:14)
[2017-02-04] MEDS: METOLAZONE 2.5 MG TABLET PO SCH (08:15)
[2017-02-04] MEDS: APIXABAN 2.5 MG TABLET PO SCH ×2 (08:16→18:10)
[2017-02-04] MEDS: Z GUARD REMEDY 2 OZ OINT TP SCH (08:17)
[2017-02-04] MEDS: CADEXOMER IODINE 40 GM TUBE TP SCH (08:17)
--- NOTE | 2017-02-04 09:00 | NUR ---
ICU/RN DUE MEDS ARE GIVEN ORDERED.PT REFUSED TO EAT BREAKFAST.ABG DONE .DR CHAWLA NOTIFIED.PT PLACED ON BI-PAP.RT AT BED SIDE. CONTINUE MONITORING.BUMEX DRIP STARTED ORDERED.
[2017-02-04 09:57] LABS: ABG BASE EXCESS -5.7 mmol/L; ABG OXYGEN SATURATION 98.3 % (92.0-98.5); ABG PCO2 48.7 mmHg (35.0-45.0); ABG PH 7.259 (7.350-7.450); ABG PO2 148.4 mmHg (75.0-100.0); AaDO2 225.8 mmHg; COHb 1.4 % (0.5-1.5); O2Hb 95.9 % (94.0-97.0); SITE, ABG Right Radial; VENT MODE, BG SIMPLE MASK
[2017-02-04 10:37] LABS: ABG BASE EXCESS -5.3 mmol/L; ABG OXYGEN SATURATION 95.2 % (92.0-98.5); ABG PCO2 47.9 mmHg (35.0-45.0); ABG PO2 89.5 mmHg (75.0-100.0); AaDO2 176.9 mmHg; MetHb 0.8 % (0.0-1.5); O2Hb 93.5 % (94.0-97.0); SITE, ABG Right Radial; VENT MODE, BG ST 15/5 PS=10
[2017-02-04] MEDS: INSULIN REGULAR, HUMAN 100 UNIT/ML 3 ML VIAL SQ PRN ×3 (11:43→22:18)
--- NOTE | 2017-02-04 12:00 | NUR ---
ICU/RN BS-166.DUE MEDS ARE GIVEN ORDERED.PT IS ON BI-PAP.NPO.FAMILY AT BED SIDE.CONTINUE MONITORING.
[2017-02-04 13:21] LABS: ABG BASE EXCESS -5.7 mmol/L; ABG OXYGEN SATURATION 97.6 % (92.0-98.5); ABG PCO2 39.5 mmHg (35.0-45.0); ABG PH 7.321 (7.350-7.450); ABG PO2 112.9 mmHg (75.0-100.0); COHb 1.4 % (0.5-1.5); MetHb 0.6 % (0.0-1.5); O2Hb 95.6 % (94.0-97.0); SITE, ABG Right Radial
--- NOTE | 2017-02-04 17:00 | NUR ---
ICU/RN PM CARE PROVIDED.DUE MEDS ARE GIVEN .WOUND DRESSING DONE ORDERED.DEEP SUCTIONING DONE.PT IS ON BI-PAP, SETTING ORDERED.SAT O2-99%.ABG DONE . NEED TO STAY ON BI-PAP.NPO.ON LEVOPHED . BS-154.REPOSITION FOR COMFORT.FAMILY AT BEDSIDE.BUMEX 16 MG IV GIVEN ORDERED PT HAS 1500 ML UA OUTPUT. CONTINUE MONITORING.
--- NOTE | 2017-02-04 18:06 | NUR ---
RT NOTE: LATE ENTRY- AT 0910 PATIENT WAS PLACED ON BIPAP PER . SETTINGS PER ORDER. ALARMS SET AND AUDIBLE. AMBU BAG AT HOB. NT SUCTION WAS DONE TO OBTAIN LARGE AMOUNT OF THICK [place] SECRETIONS. MASK CHANGED DUE TO PATIENT UNABLE TO KEEP MOUTH OPEN. PATIENT IS TOLERATING WELL AND CHANGES WERE MADE PER MD ORDER.
[2017-02-04] MEDS: TAMSULOSIN 0.4 MG CAP.SR.24H PO SCH (18:10)
--- NOTE | 2017-02-04 20:00 | NUR ---
ICU/RN RECEIVED PT ON BIPAP 100% FI02,HDR=663%.PT LETHARGIC BUT OPENS EYES TO VERBAL AND TACTILE STIM.ANSWERS "YES"OR "NO "RO QUESTIONS ASKED.FOLLOWS SIMPLE VERBAL COMMANDS. AT BEDSIDE,UPDATED W/PT'S CONDITION.
[2017-02-05] VITALS (53 sets, daily range): BP systolic 74–120; BP diastolic 29–69
[2017-02-05] MEDS ORDERED: IV SET PRIMARY PUMP SET 1 EA INFUS.SET MC ONE (02:45)
[2017-02-05] MEDS: NOREPINEPHRINE 16 MG in IV D5W 500 ML IV PRN ×2 (02:53→17:28)
[2017-02-05] MEDS: IV NS 0.9% 250 ML IV PRN (02:54)
[2017-02-05] MEDS: METRONIDAZOLE 500MG/ NS 100ML 500 MG in PREMIX 1 EA IV SCH ×3 (05:05→21:59)
[2017-02-05] MEDS: IV NS 0.9% 500 ML IV PRN (05:07)
[2017-02-05 05:29] LABS: ALANINE AMINOTRANSFERASE 33 U/L (12-78); ALKALINE PHOSPHATASE 191 U/L (46-116); ASPARTATE AMINOTRANSFERASE 34 U/L (15-37); BILIRUBIN,TOTAL 2.2 mg/dL (0.2-1.0); CARBON DIOXIDE 24 mmol/L (21-32); CHLORIDE 100 mmol/L (98-107); CREATININE 2.3 mg/dL (0.6-1.3); GLUCOSE 126 mg/dL (74-106); POTASSIUM 3.3 mmol/L (3.5-5.1); SODIUM SERUM 134 mmol/L (136-145); TOTAL PROTEIN, SERUM 5.7 g/dL (6.4-8.2)
[2017-02-05 05:31] LABS: UREA NITROGEN, BLOOD 94 mg/dL (7-18)
--- NOTE | 2017-02-05 05:38 | NUR ---
ICU/RN CONTINUES TO DIURESE W/ CVP OF 2CMH20.LUNGS SOUND W/ SCATTERED COARSE RHONCHI.MAINTAING SAT OF 100%.REPOSITIONED.LT HIP DRESSING CHANGED W/ SEROUS DRAINAGE FROM UPPER HIP.AREA REDDENED AND SLIGHTLY SWOLLEN,IRASEMA TO LOWER PORTION INTACT.
[2017-02-05] MEDS: MEROPENEM 500 MG in IV NS 0.9% 50 ML IV SCH ×2 (06:23→18:20)
--- NOTE | 2017-02-05 06:33 | NUR ---
RT END OF THE SHIFT REPORT, PATIENT REMAIN ON BIPAP. . ALARMS VERIFIED AND AUDIBLE. SUCTIONED AND B/S RALES BILATERALLY AND . BIPAP PLUGGED INTO RED OUTLET. AMBU BAG AT [facility]. NO DISTRESS NOTED T/O NIGHT REPORT WILL PASS TO AM SHIFT. Addendum: 02/05/17 at 0634 by MARK MACHADO RT Amended: Links added.
[2017-02-05] MEDS ORDERED: VANCOMYCIN 0.75 GM in IV D5W 250 ML IV SCH ×2 (08:00→20:00)
[2017-02-05] MEDS: APIXABAN 2.5 MG TABLET PO SCH ×2 (08:18→16:53)
[2017-02-05] MEDS: LACTOBACILLUS RHAMNOSUS GG 1 EACH CAP.SPRINK PO SCH ×2 (08:20→16:53)
[2017-02-05] MEDS: VIT B CMPLX 3/FA/VIT C/BIOTIN 1 TAB TABLET PO SCH (08:23)
[2017-02-05] MEDS: PREGABALIN 25 MG CAPSULE PO SCH ×3 (08:23→16:53)
[2017-02-05] MEDS: METOLAZONE 2.5 MG TABLET PO SCH (08:23)
[2017-02-05] MEDS: CHOLECALCIFEROL 1,000 UNIT TABLET (VIT D3) PO SCH (08:23)
[2017-02-05] MEDS: SERTRALINE HCL 50 MG TABLET PO SCH (08:23)
[2017-02-05] MEDS: ALLOPURINOL 100 MG TABLET PO SCH (08:23)
[2017-02-05] MEDS: CADEXOMER IODINE 40 GM TUBE TP SCH (08:24)
[2017-02-05] MEDS: Z GUARD REMEDY 2 OZ OINT TP SCH (08:24)
[2017-02-05] MEDS: BLOOD SUGAR DIAGNOSTIC 1 EACH STRIP IN SCH ×4 (08:25→22:00)
[2017-02-05] MEDS: LEVOTHYROXINE SODIUM 88 MCG TABLET PO SCH (08:43)
[2017-02-05] MEDS ORDERED: SECONDARY IV SET 1 EA INFUS.SET MC ONE (09:09)
[2017-02-05] MEDS: POTASSIUM CL. PREMIX PERIPHER. 50 ML IV SCH ×4 (09:22→13:48)
[2017-02-05] MEDS ORDERED: METOLAZONE 2.5 MG TABLET PO SCH (09:30)
[2017-02-05 09:55] LABS: HEMATOCRIT 31 % (39-51); HEMOGLOBIN 9.8 g/dL (13.5-17.5); LYMPHOCYTES # (AUTO) 0.3 /CMM (0.8-4.8); MEAN CORPUSCULAR HEMOGLOBIN 29 PG (26.0-33.0); MEAN CORPUSCULAR HGB CONC 32 g/dl (31.0-36.0); MEAN CORPUSCULAR VOLUME 89 fL (80-96); MONOCYTES # (AUTO) 1.4 /CMM (0.1-1.30); MONOCYTES % (AUTO) 8.7 % (2.0-12.0); NEUTROPHILS # (AUTO) 14.9 /CMM (1.8-8.9); NEUTROPHILS % (AUTO) 89.3 % (43.0-81.0); PLATELET COUNT (AUTO) 282 /CMM (150-450); RDW COEFFICIENT OF VARIATION 25.8 (11.5-15.0); RED BLOOD CELL COUNT(AUTO) 3.44 MIL/uL (4.5-6.0); WHITE BLOOD COUNT (AUTO) 16.7 K/uL (4.3-11.0)
[2017-02-05] MEDS: TAMSULOSIN 0.4 MG CAP.SR.24H PO SCH (16:53)
--- NOTE | 2017-02-05 17:00 | NUR ---
ICU/RN PM CARE PROVIDED.WOUND DRESSING DONE ORDERED.PT IS ON LEVOPHED. ON 3L N/C SAT O2-100%.AFEBRILE NO PAIN REPORTED AT THIS TIME .K-3.3.REPLACED WITH 40 MEQ KCL IV.DUE MEDS ARE GIVEN ORDERED. BS-157.PT EATS 100% FROM HIS MEAL TRAY.HELPED WITH ASSISTANCE.REPOSITION FOR COMFORT.FAMILY AT BEDSIDE.
[2017-02-05] MEDS: INSULIN REGULAR, HUMAN 100 UNIT/ML 3 ML VIAL SQ PRN ×2 (17:29→22:05)
--- NOTE | 2017-02-05 23:15 | NUR ---
CANOE BUILDER DF BP OF 86/42 CURRENT LEVOPHED AT 18MCG INCREASED LEVOPHED TO 20MCG.
[2017-02-06] VITALS (76 sets, daily range): BP systolic 79–115; BP diastolic 36–64
[2017-02-06] MEDS ORDERED: IV SET PRIMARY PUMP SET 1 EA INFUS.SET MC ONE ×2 (04:49→08:29)
[2017-02-06] MEDS ORDERED: SECONDARY IV SET 1 EA INFUS.SET MC ONE ×2 (04:49→12:01)
[2017-02-06 05:01] LABS: CALCIUM, SERUM 7.9 mg/dL (8.5-10.1); CARBON DIOXIDE 26 mmol/L (21-32); CHLORIDE 101 mmol/L (98-107); CREATININE 2.1 mg/dL (0.6-1.3); GLUCOSE 158 mg/dL (74-106); POTASSIUM 2.9 mmol/L (3.5-5.1); SODIUM SERUM 135 mmol/L (136-145)
[2017-02-06 05:03] LABS: UREA NITROGEN, BLOOD 91 mg/dL (7-18)
[2017-02-06] MEDS: METRONIDAZOLE 500MG/ NS 100ML 500 MG in PREMIX 1 EA IV SCH ×3 (05:29→21:12)
[2017-02-06] MEDS: NOREPINEPHRINE 16 MG in IV D5W 500 ML IV PRN ×2 (05:30→13:53)
[2017-02-06] MEDS: IV NS 0.9% 250 ML IV PRN (05:31)
[2017-02-06] MEDS: MEROPENEM 500 MG in IV NS 0.9% 50 ML IV SCH ×2 (06:14→18:16)
[2017-02-06] MEDS: SERTRALINE HCL 50 MG TABLET PO SCH (08:35)
[2017-02-06] MEDS: LACTOBACILLUS RHAMNOSUS GG 1 EACH CAP.SPRINK PO SCH ×2 (08:35→17:11)
[2017-02-06] MEDS: ALLOPURINOL 100 MG TABLET PO SCH (08:35)
[2017-02-06] MEDS: PREGABALIN 25 MG CAPSULE PO SCH ×3 (08:35→17:11)
[2017-02-06] MEDS: POTASSIUM CL. PREMIX PERIPHER. 50 ML IV SCH ×8 (08:35→17:11)
[2017-02-06] MEDS: IV NS 0.9% 500 ML IV PRN (08:35)
[2017-02-06] MEDS: CHOLECALCIFEROL 1,000 UNIT TABLET (VIT D3) PO SCH (08:35)
[2017-02-06] MEDS: VIT B CMPLX 3/FA/VIT C/BIOTIN 1 TAB TABLET PO SCH (08:35)
[2017-02-06] MEDS: LEVOTHYROXINE SODIUM 88 MCG TABLET PO SCH (08:38)
[2017-02-06] MEDS: APIXABAN 2.5 MG TABLET PO SCH ×2 (08:38→17:11)
[2017-02-06] MEDS: CADEXOMER IODINE 40 GM TUBE TP SCH (08:39)
[2017-02-06] MEDS: Z GUARD REMEDY 2 OZ OINT TP SCH (08:39)
[2017-02-06] MEDS: BLOOD SUGAR DIAGNOSTIC 1 EACH STRIP IN SCH ×4 (08:51→22:06)
[2017-02-06] MEDS: INSULIN REGULAR, HUMAN 100 UNIT/ML 3 ML VIAL SQ PRN ×4 (08:52→22:07)
[2017-02-06 10:15] LABS: BASOPHILS # (AUTO) 0.1 /CMM (0.0-0.2); BASOPHILS % (AUTO) 0.6 % (0.0-2.0); EOSINOPHILS % (AUTO) 0.3 % (0.0-6.0); HEMATOCRIT 31 % (39-51); HEMOGLOBIN 9.8 g/dL (13.5-17.5); LYMPHOCYTES # (AUTO) 0.4 /CMM (0.8-4.8); LYMPHOCYTES % (AUTO) 3.2 % (20.0-44.0); MEAN CORPUSCULAR HEMOGLOBIN 29 PG (26.0-33.0); MEAN CORPUSCULAR HGB CONC 32 g/dl (31.0-36.0); MEAN CORPUSCULAR VOLUME 89 fL (80-96); MONOCYTES % (AUTO) 7.7 % (2.0-12.0); NEUTROPHILS # (AUTO) 11.6 /CMM (1.8-8.9); NEUTROPHILS % (AUTO) 88.2 % (43.0-81.0); PLATELET COUNT (AUTO) 200 /CMM (150-450); RED BLOOD CELL COUNT(AUTO) 3.41 MIL/uL (4.5-6.0); WHITE BLOOD COUNT (AUTO) 13.2 K/uL (4.3-11.0)
[2017-02-06 13:27] LABS: LYMPHOCYTES % (MANUAL) 1 % (16-48); MONOCYTES % (MANUAL) 8 % (0-11.0); NEUTROPHILS % (MANUAL) 91 (42-76)
[2017-02-06] MEDS: TAMSULOSIN 0.4 MG CAP.SR.24H PO SCH (17:11)
--- NOTE | 2017-02-06 20:00 | NUR ---
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 Will turn and reposition Q 2 hrs offloading pressure points.
[2017-02-07] VITALS (91 sets, daily range): BP systolic 87–117; BP diastolic 42–74
--- NOTE | 2017-02-07 | NUR ---
Patient resting.VS stable.turned and repositioned.Denies pain.
[2017-02-07] MEDS: NOREPINEPHRINE 16 MG in IV D5W 500 ML IV PRN ×3 (00:01→18:10)
[2017-02-07] MEDS: METRONIDAZOLE 500MG/ NS 100ML 500 MG in PREMIX 1 EA IV SCH ×2 (05:00→12:40)
[2017-02-07] MEDS: IV NS 0.9% 250 ML IV PRN (05:00)
[2017-02-07] MEDS: IV NS 0.9% 500 ML IV PRN ×2 (05:03→05:13)
[2017-02-07 05:16] LABS: CALCIUM, SERUM 7.7 mg/dL (8.5-10.1); CARBON DIOXIDE 31 mmol/L (21-32); CHLORIDE 100 mmol/L (98-107); CREATININE 2.3 mg/dL (0.6-1.3); GLUCOSE 141 mg/dL (74-106); MAGNESIUM 1.7 mg/dL (1.8-2.4); SODIUM SERUM 138 mmol/L (136-145)
[2017-02-07 05:25] LABS: UREA NITROGEN, BLOOD 85 mg/dL (7-18)
[2017-02-07] MEDS: MEROPENEM 500 MG in IV NS 0.9% 50 ML IV SCH ×2 (06:26→18:09)
--- NOTE | 2017-02-07 06:32 | NUR ---
Patient resting.VS stable.Levophed drip infusing.All due medications administered.Was turned and repositioned.Wound photos taken and dressing changed.No significant change noted on patient status throughout the shift.
--- NOTE | 2017-02-07 08:00 | NUR ---
ICU/RN PT IS IN THE BED ,AWAKE,ALERT,ORIENTED.ON LEVOPHED DRIP.AFEBRILE.NO PAIN REPORTED AT THIS TIME.ON 3 L N/C SAT O2-100%.PICC LINE ON THE RIGHT UPPER ARM. CVP-4.F/C DRAINING WITH YELLOW URINE.MULTIPLY BRUISES,SKIN TEARS NOTED ALL OVER THE BODY.PT HAS LOWER LEG WOUNDS COVERED WITH DRESSING.S/P LEFT HIP OIRF,WOUND COVERED WITH DRESSING.LOWER BACK WOUND.GENERALIZED EDEMA PRESENT.LABS REVIEW. NOTIFIED.NEW ORDERS RECEIVED.REPOSITION FOR COMFORT.
[2017-02-07] MEDS: ALLOPURINOL 100 MG TABLET PO SCH (08:01)
[2017-02-07] MEDS: SERTRALINE HCL 50 MG TABLET PO SCH (08:01)
[2017-02-07] MEDS: LACTOBACILLUS RHAMNOSUS GG 1 EACH CAP.SPRINK PO SCH ×2 (08:01→17:20)
[2017-02-07] MEDS: VIT B CMPLX 3/FA/VIT C/BIOTIN 1 TAB TABLET PO SCH (08:01)
[2017-02-07] MEDS: PREGABALIN 25 MG CAPSULE PO SCH ×3 (08:01→17:20)
[2017-02-07] MEDS: CHOLECALCIFEROL 1,000 UNIT TABLET (VIT D3) PO SCH (08:01)
[2017-02-07] MEDS: APIXABAN 2.5 MG TABLET PO SCH ×2 (08:02→17:20)
[2017-02-07] MEDS: CADEXOMER IODINE 40 GM TUBE TP SCH (08:03)
[2017-02-07] MEDS: BLOOD SUGAR DIAGNOSTIC 1 EACH STRIP IN SCH ×4 (08:03→21:09)
[2017-02-07] MEDS: Z GUARD REMEDY 2 OZ OINT TP SCH (08:04)
[2017-02-07] MEDS ORDERED: IV SET PRIMARY PUMP SET 1 EA INFUS.SET MC ONE (08:25)
[2017-02-07] MEDS ORDERED: SECONDARY IV SET 1 EA INFUS.SET MC ONE (08:26)
[2017-02-07] MEDS: Magnesium 1GM/D5W 100ML PREMIX 100 ML IV SCH ×2 (08:36→09:01)
[2017-02-07] MEDS: POTASSIUM CL. PREMIX PERIPHER. 50 ML IV SCH ×6 (08:36→12:41)
[2017-02-07] MEDS ORDERED: VANCOMYCIN 0.75 GM in IV D5W 250 ML IV SCH ×2 (09:00→11:00)
[2017-02-07] MEDS: INSULIN REGULAR, HUMAN 100 UNIT/ML 3 ML VIAL SQ PRN ×4 (09:00→21:12)
--- NOTE | 2017-02-07 09:30 | NUR ---
ICU/RN DUE MEDS ARE GIVEN ORDERED.PT EATS 100% FROM HIS BREAKFAST TRAY,HELPED WITH ASSISTANCE.
--- NOTE | 2017-02-07 17:00 | NUR ---
ICU/RN PM CARE PROVIDED.WOUND DRESSING DONE ORDERED.DUE MEDS ARE GIVEN ORDERED.REPOSITION FOR COMFORT.PT IS STILL ON LEVOPHED.CONTINUE MONITORING.
[2017-02-07] MEDS: TAMSULOSIN 0.4 MG CAP.SR.24H PO SCH (17:20)
[2017-02-07] MEDS: METRONIDAZOLE 500 MG TABLET PO SCH (21:09)
[2017-02-08] VITALS (85 sets, daily range): BP systolic 79–105; BP diastolic 41–61
[2017-02-08] MEDS: METRONIDAZOLE 500 MG TABLET PO SCH ×3 (04:18→21:50)
[2017-02-08 05:14] LABS: EOSINOPHILS # (AUTO) 0.2 /CMM (0.0-0.7); EOSINOPHILS % (AUTO) 2.3 % (0.0-6.0); HEMATOCRIT 28 % (39-51); LYMPHOCYTES # (AUTO) 0.3 /CMM (0.8-4.8); LYMPHOCYTES % (AUTO) 2.8 % (20.0-44.0); MEAN CORPUSCULAR HEMOGLOBIN 29 PG (26.0-33.0); MEAN CORPUSCULAR HGB CONC 32 g/dl (31.0-36.0); MEAN CORPUSCULAR VOLUME 88 fL (80-96); MONOCYTES # (AUTO) 0.6 /CMM (0.1-1.30); MONOCYTES % (AUTO) 6.5 % (2.0-12.0); NEUTROPHILS # (AUTO) 8.7 /CMM (1.8-8.9); NEUTROPHILS % (AUTO) 88.4 % (43.0-81.0); PLATELET COUNT (AUTO) 159 /CMM (150-450); RDW COEFFICIENT OF VARIATION 26.6 (11.5-15.0); RED BLOOD CELL COUNT(AUTO) 3.16 MIL/uL (4.5-6.0); WHITE BLOOD COUNT (AUTO) 9.9 K/uL (4.3-11.0)
[2017-02-08 05:34] LABS: CALCIUM, SERUM 7.8 mg/dL (8.5-10.1); GLUCOSE 141 mg/dL (74-106); MAGNESIUM 2.2 mg/dL (1.8-2.4); PHOSPHORUS 3.5 mg/dL (2.5-4.9)
[2017-02-08 05:45] LABS: CARBON DIOXIDE 30 mmol/L (21-32); CHLORIDE 100 mmol/L (98-107); SODIUM SERUM 138 mmol/L (136-145)
[2017-02-08 05:51] LABS: POTASSIUM 2.6 mmol/L (3.5-5.1); UREA NITROGEN, BLOOD 82 mg/dL (7-18)
[2017-02-08] MEDS ORDERED: POTASSIUM CL. PREMIX PERIPHER. 50 ML ONE (06:14)
--- NOTE | 2017-02-08 06:15 | NUR ---
ICU/RN- CALLED DR MUHAMMAD. INFORMED ABOUT CRITICAL K OF 2.6. DR MUHAMMAD ORDERED ANTOINE GIVE KCL 60 MEQ VIA IV. ORDERS CARRIED OUT.
[2017-02-08] MEDS: MEROPENEM 500 MG in IV NS 0.9% 50 ML IV SCH ×2 (06:17→18:23)
[2017-02-08] MEDS: POTASSIUM CL. PREMIX PERIPHER. 50 ML IV SCH ×10 (06:21→16:33)
[2017-02-08] MEDS: BLOOD SUGAR DIAGNOSTIC 1 EACH STRIP IN SCH ×4 (07:40→21:51)
[2017-02-08] MEDS: INSULIN REGULAR, HUMAN 100 UNIT/ML 3 ML VIAL SQ PRN ×4 (07:41→21:50)
[2017-02-08] MEDS: VIT B CMPLX 3/FA/VIT C/BIOTIN 1 TAB TABLET PO SCH (08:00)
[2017-02-08] MEDS: ALLOPURINOL 100 MG TABLET PO SCH (08:00)
[2017-02-08] MEDS: SERTRALINE HCL 50 MG TABLET PO SCH (08:00)
[2017-02-08] MEDS: LACTOBACILLUS RHAMNOSUS GG 1 EACH CAP.SPRINK PO SCH ×2 (08:00→16:33)
[2017-02-08] MEDS: CHOLECALCIFEROL 1,000 UNIT TABLET (VIT D3) PO SCH (08:00)
[2017-02-08] MEDS: PREGABALIN 25 MG CAPSULE PO SCH ×3 (08:00→16:33)
[2017-02-08] MEDS: CADEXOMER IODINE 40 GM TUBE TP SCH (08:01)
[2017-02-08] MEDS: Z GUARD REMEDY 2 OZ OINT TP SCH (08:01)
[2017-02-08] MEDS: APIXABAN 2.5 MG TABLET PO SCH ×2 (08:03→16:34)
[2017-02-08] MEDS ORDERED: POTASSIUM CL. PREMIX PERIPHER. 50 ML IV SCH (08:09)
[2017-02-08] MEDS: MORPHINE SULFATE INJ 2 MG/ML DISP.SYRIN IV PRN ×2 (08:32→16:36)
[2017-02-08] MEDS: IV NS 0.9% 1,000 ML IV PRN ×2 (08:32→16:51)
[2017-02-08] MEDS: NOREPINEPHRINE 16 MG in IV D5W 500 ML IV PRN (11:01)
[2017-02-08] MEDS: TAMSULOSIN 0.4 MG CAP.SR.24H PO SCH (16:34)
--- NOTE | 2017-02-08 18:03 | NUR ---
MICROBIAL SPECIALIST NOTE 0720: Received patient awake, A/Ox3, noted with confusion at times. On 3LPM of O2 via NC, Sat 100%, placed on 2 LPM of O2 via NC. No S/S hypo/hyperglycemia noted at this time. SR 60's on the monitor. Acosta cath intact, noted with clear yellow urine drained to BSD. SAE PICC intact. CVP read 4-5. S/E by Dr. Stratton. KCl ongoing for K level 2.6. Still on Levophed @ 12mcg, will titrate as ordered. 0930: S/E by Dr. Hawley, no new order at this time. 1615: S/E by Dr. Osborn, no new order at this time, will repeat K level in am. 1630: Cleaned patient, noted with soft brown stool. Left hip mykel intact. Morphine given for c/o 9/10 left hip pain, will continue to monitor. 1700: S/E by ID, no new order at this time. 1715: at bedside, aware for the POC, answered all questions and concerns. 1800: No any significant changes noted at this time. Levo @ 10mcg.
--- NOTE | 2017-02-08 19:57 | NUR ---
ELECTROLOGIST. INITIAL ASSESSMENT. RECEIVED THE PT REST ON THE BED, PT AWAKE, LETHARGIC. FOLLOW COMMANDS. SYSTEM SOFTWARE PROGRAMMER SHOWING NSR. OXYGEN 2L VIA NASAL CANNULA. SAT 98%. NO ACUTE DISTRESS NOTED. IV RT UPPER ARM PICC LINE. IVF NS 125ML/H, LEVOPHED 12MCG/MIN. CVP ZERO CALIBRATED. FC PATENT. URINE DRAINING. HOB ELEVATED. AFEBRILE. TURN AND REPOSITION Q2H. WILL CONTINUE TO MONITOR VITALS.
[2017-02-08] MEDS: VANCOMYCIN 0.75 GM in IV D5W 250 ML IV SCH (21:51)
[2017-02-09] VITALS (84 sets, daily range): BP systolic 87–144; BP diastolic 39–119
[2017-02-09] MEDS: IV NS 0.9% 1,000 ML IV PRN (02:30)
--- NOTE | 2017-02-09 03:29 | NUR ---
NEGOTIATIONS DIRECTOR. AMK CARE, ORAL CARE, BED BATH GIVEN. LINEN CHANGED. REMAINING SAME OXYGEN 2L VIA NASAL CANNULA. SAT 98%. HOB ELEVATED. IV RT UPPER ARM PICC LINE IVF NS 125ML/H, LEVOPHED 15MCG/MIN. AFEBRILE. FC PATENT, URINE DRAINING. TURN AND [id number], WILL CONTINUE TO MONITOR VITALS,
[2017-02-09 04:38] LABS: EOSINOPHILS # (AUTO) 0.3 /CMM (0.0-0.7); EOSINOPHILS % (AUTO) 2.6 % (0.0-6.0); HEMATOCRIT 29 % (39-51); HEMOGLOBIN 9.2 g/dL (13.5-17.5); LYMPHOCYTES # (AUTO) 0.3 /CMM (0.8-4.8); LYMPHOCYTES % (AUTO) 2.9 % (20.0-44.0); MEAN CORPUSCULAR HEMOGLOBIN 29 PG (26.0-33.0); MEAN CORPUSCULAR HGB CONC 32 g/dl (31.0-36.0); MEAN CORPUSCULAR VOLUME 90 fL (80-96); MONOCYTES # (AUTO) 0.7 /CMM (0.1-1.30); MONOCYTES % (AUTO) 6.1 % (2.0-12.0); NEUTROPHILS # (AUTO) 9.6 /CMM (1.8-8.9); NEUTROPHILS % (AUTO) 88.4 % (43.0-81.0); PLATELET COUNT (AUTO) 161 /CMM (150-450); RDW COEFFICIENT OF VARIATION 26.6 (11.5-15.0); RED BLOOD CELL COUNT(AUTO) 3.21 MIL/uL (4.5-6.0); WHITE BLOOD COUNT (AUTO) 10.9 K/uL (4.3-11.0)
[2017-02-09 04:56] LABS: CALCIUM, SERUM 7.7 mg/dL (8.5-10.1); CARBON DIOXIDE 33 mmol/L (21-32); CHLORIDE 101 mmol/L (98-107); CREATININE 1.8 mg/dL (0.6-1.3); GLUCOSE 156 mg/dL (74-106); PHOSPHORUS 3.5 mg/dL (2.5-4.9); SODIUM SERUM 138 mmol/L (136-145); UREA NITROGEN, BLOOD 73 mg/dL (7-18)
[2017-02-09] MEDS: METRONIDAZOLE 500 MG TABLET PO SCH ×2 (05:00→12:24)
[2017-02-09 05:05] LABS: POTASSIUM 2.8 mmol/L (3.5-5.1)
[2017-02-09] MEDS: NOREPINEPHRINE 16 MG in IV D5W 500 ML IV PRN ×2 (05:10→17:24)
[2017-02-09 05:34] LABS: EOSINOPHILS % (MANUAL) 5 % (0-4); LYMPHOCYTES % (MANUAL) 3 % (16-48); MONOCYTES % (MANUAL) 7 % (0-11.0); NEUTROPHILS % (MANUAL) 85 (42-76)
[2017-02-09] MEDS: MEROPENEM 500 MG in IV NS 0.9% 50 ML IV SCH (05:57)
[2017-02-09] MEDS ORDERED: POTASSIUM CL. PREMIX PERIPHER. 50 ML ONE (06:20)
[2017-02-09] MEDS ORDERED: HYDROCORTISONE SOD SUCCINATE 100 MG/2 ML VIAL ONE (06:24)
[2017-02-09] MEDS: HYDROCORTISONE SOD SUCCINATE 100 MG/2 ML VIAL IV SCH ×4 (06:28→17:20)
[2017-02-09] MEDS: POTASSIUM CL. PREMIX PERIPHER. 50 ML IV SCH ×10 (06:29→18:43)
--- NOTE | 2017-02-09 08:00 | NUR ---
ICU/RN INITIAL NOTES,AM RECEIVED PT RESTING IN BED. PT SLEEPING, ABLE TO AROUSE EASILY. FOLLOWS COMMANDS. PT ON NASAL CANULA, NO ACUTE DISTRESS NOTED AT THIS TIME. PT ON LEVO FOR BP SUPPORT. SINUS ON TELE. CARIAS IN PLACE DRAINING YELLOW URINE. RIGHT UPPER ARM PICC LINE PATENT AND INTACT, POTASSIUM REPLACEMENT INFUSING AT THIS TIME. CVP ZEROED AND CALIBRATED. PT TURNED AND REPOSITIONED. ALL NEEDS WILL BE ATTENDED TO, BED IN LOW POSITION, SIDE RAILS UP, CALL LIGHT WITHIN REACH. WILL CONTINUE CARE. PT ON LOW AIR LOSS MATTRESS FOR SKIN PROTECTION
[2017-02-09] MEDS: LACTOBACILLUS RHAMNOSUS GG 1 EACH CAP.SPRINK PO SCH ×2 (08:20→17:20)
[2017-02-09] MEDS: BLOOD SUGAR DIAGNOSTIC 1 EACH STRIP IN SCH ×4 (08:20→21:39)
[2017-02-09] MEDS: CHOLECALCIFEROL 1,000 UNIT TABLET (VIT D3) PO SCH (08:21)
[2017-02-09] MEDS: SERTRALINE HCL 50 MG TABLET PO SCH (08:21)
[2017-02-09] MEDS: APIXABAN 2.5 MG TABLET PO SCH ×2 (08:21→17:20)
[2017-02-09] MEDS: PREGABALIN 25 MG CAPSULE PO SCH ×3 (08:22→17:20)
[2017-02-09] MEDS: VIT B CMPLX 3/FA/VIT C/BIOTIN 1 TAB TABLET PO SCH (08:22)
[2017-02-09] MEDS: ALLOPURINOL 100 MG TABLET PO SCH (08:22)
[2017-02-09] MEDS: LEVOTHYROXINE SODIUM 88 MCG TABLET PO SCH (08:25)
[2017-02-09] MEDS: CADEXOMER IODINE 40 GM TUBE TP SCH (08:32)
[2017-02-09] MEDS: Z GUARD REMEDY 2 OZ OINT TP SCH (08:32)
[2017-02-09] MEDS: INSULIN REGULAR, HUMAN 100 UNIT/ML 3 ML VIAL SQ PRN ×4 (08:57→21:42)
[2017-02-09] MEDS ORDERED: POTASSIUM CHLORIDE 20 MEQ POWDER PACKET GT ONE (11:00)
[2017-02-09] MEDS ORDERED: IV NS 0.9% 500 ML IV ONE (17:15)
[2017-02-09] MEDS: TAMSULOSIN 0.4 MG CAP.SR.24H PO SCH (17:20)
[2017-02-09] MEDS: MEROPENEM 1 G in IV NS 0.9% 100 ML IV SCH (17:24)
--- NOTE | 2017-02-09 18:49 | NUR ---
ICU/RN ENDING NOTES,AM REPORT WILL BE ENDORSED TO NIGHT NURSE FOR CONTINUATION OF CARE. ALL NEEDS MET. PT BATHED, TURNED AND REPOSITIONED. ON NASAL CANULA, NO DISTRESS NOTED. PT SINUS NANETTE ON TELE WITH BBB. PT CONTINUES TO BE ON 15MCG LEVO FOR BP SUPPORT. PICC LINE PATENT AND INTACT, NO S/S OF INFECTION OR INFILTRATION NOTED. SAFETY MEASURES TAKEN,BED IN LOW POSITION, SIDE RAILS UP, CALL LIGHT WITHIN REACH. WILL CONTINUE CARE.
[2017-02-10] VITALS (97 sets, daily range): BP systolic 79–122; BP diastolic 40–62
[2017-02-10 04:54] LABS: EOSINOPHILS % (AUTO) 0.1 % (0.0-6.0); HEMATOCRIT 28 % (39-51); HEMOGLOBIN 9.2 g/dL (13.5-17.5); LYMPHOCYTES # (AUTO) 0.2 /CMM (0.8-4.8); LYMPHOCYTES % (AUTO) 2.2 % (20.0-44.0); MEAN CORPUSCULAR HEMOGLOBIN 29 PG (26.0-33.0); MEAN CORPUSCULAR HGB CONC 33 g/dl (31.0-36.0); MEAN CORPUSCULAR VOLUME 89 fL (80-96); NEUTROPHILS # (AUTO) 8.9 /CMM (1.8-8.9); NEUTROPHILS % (AUTO) 97.7 % (43.0-81.0); PLATELET COUNT (AUTO) 163 /CMM (150-450); RDW COEFFICIENT OF VARIATION 26.4 (11.5-15.0); RED BLOOD CELL COUNT(AUTO) 3.14 MIL/uL (4.5-6.0); WHITE BLOOD COUNT (AUTO) 9.1 K/uL (4.3-11.0)
[2017-02-10 05:11] LABS: ALANINE AMINOTRANSFERASE 22 U/L (12-78); ALKALINE PHOSPHATASE 197 U/L (46-116); ASPARTATE AMINOTRANSFERASE 20 U/L (15-37); BILIRUBIN,TOTAL 1.7 mg/dL (0.2-1.0); CALCIUM, SERUM 8.1 mg/dL (8.5-10.1); CARBON DIOXIDE 34 mmol/L (21-32); CHLORIDE 102 mmol/L (98-107); CREATININE 1.7 mg/dL (0.6-1.3); GLUCOSE 149 mg/dL (74-106); MAGNESIUM 2.1 mg/dL (1.8-2.4); PHOSPHORUS 3.7 mg/dL (2.5-4.9); POTASSIUM 3.7 mmol/L (3.5-5.1); SODIUM SERUM 138 mmol/L (136-145); TOTAL PROTEIN, SERUM 5.5 g/dL (6.4-8.2); UREA NITROGEN, BLOOD 70 mg/dL (7-18)
[2017-02-10] MEDS ORDERED: IV SET PRIMARY PUMP SET 1 EA INFUS.SET MC ONE (07:20)
[2017-02-10] MEDS: NOREPINEPHRINE 16 MG in IV D5W 500 ML IV PRN ×2 (07:29→17:49)
[2017-02-10] MEDS: IV NS 0.9% 250 ML IV PRN (07:30)
--- NOTE | 2017-02-10 07:48 | NUR ---
INITIAL HEART DOCTOR NOTE RCVD PT AWAKE AND ALERT TO SELF AND PLACE, RE-ORIENTED TO SITUATION AND TIME, PT'S FORGETFUL. TOLERATING O2 VIA NC, SHOWING NO S/O DISTRESS OR C/O PAIN. CARIAS DRAINING YELLOW URINE. SAE PICC C/D/I/PATENT. NO S/O INFILTRATION OR PHLEBITIS OBSERVED. IVF INFUSING. WILL CONTINUE TO MONITOR PT FOR SAFETY AND COMFORT. CALL LIGHT WITHIN REACH. BED IN LOW AND LOCKED POSITION.
[2017-02-10] MEDS ORDERED: SECONDARY IV SET 1 EA INFUS.SET MC ONE (07:50)
[2017-02-10] MEDS: BLOOD SUGAR DIAGNOSTIC 1 EACH STRIP IN SCH ×4 (08:03→21:29)
[2017-02-10] MEDS: PREGABALIN 25 MG CAPSULE PO SCH ×3 (08:04→17:04)
[2017-02-10] MEDS: CHOLECALCIFEROL 1,000 UNIT TABLET (VIT D3) PO SCH (08:04)
[2017-02-10] MEDS: ALLOPURINOL 100 MG TABLET PO SCH (08:04)
[2017-02-10] MEDS: APIXABAN 2.5 MG TABLET PO SCH ×2 (08:04→17:05)
[2017-02-10] MEDS: HYDROCORTISONE SOD SUCCINATE 100 MG/2 ML VIAL IV SCH ×3 (08:04→17:04)
[2017-02-10] MEDS: MEROPENEM 1 G in IV NS 0.9% 100 ML IV SCH ×2 (08:04→21:30)
[2017-02-10] MEDS: LACTOBACILLUS RHAMNOSUS GG 1 EACH CAP.SPRINK PO SCH ×2 (08:04→17:04)
[2017-02-10] MEDS: VIT B CMPLX 3/FA/VIT C/BIOTIN 1 TAB TABLET PO SCH (08:04)
[2017-02-10] MEDS: SERTRALINE HCL 50 MG TABLET PO SCH (08:05)
[2017-02-10] MEDS: Z GUARD REMEDY 2 OZ OINT TP SCH (08:06)
[2017-02-10] MEDS: CADEXOMER IODINE 40 GM TUBE TP SCH (08:06)
[2017-02-10] MEDS: INSULIN REGULAR, HUMAN 100 UNIT/ML 3 ML VIAL SQ PRN ×4 (08:10→21:31)
[2017-02-10] MEDS ORDERED: FUROSEMIDE 40 MG/4 ML VIAL IV ONE (09:30)
[2017-02-10] MEDS: VANCOMYCIN 0.75 GM in IV D5W 250 ML IV SCH (09:32)
--- NOTE | 2017-02-10 13:23 | NUR ---
HEALTH FACILITIES SURVEYOR NOTE DR. BETH AT PT'S BEDSIDE RECOMMENDED FOR PT TO GET OOB TO RECLINING CHAIR FOR 1/2 HR TOMORROW. OK TO WEIGHT BEAR ON BILATERAL FEET. USE BUNNY BOOTS WHEN TRANSFERRING TO CHAIR. FROM PT DEPARTMENT CALLED AND INFORMED OF ABOVE. HE'LL RELAY THE MESSAGE TO PIETER.
[2017-02-10] MEDS: TAMSULOSIN 0.4 MG CAP.SR.24H PO SCH (17:04)
[2017-02-10] MEDS: IV NS 0.9% 500 ML IV PRN (17:05)
--- NOTE | 2017-02-10 18:34 | NUR ---
ENDING MANUFACTURING ENGINEER NOTE PT REMAINS STABLE, ASYMPTOMATIC WHEN SBP 80. LEVOPHED TITRATED PER MD'S ORDER TO KEEP MAP >65. CONTINUES TO TOLERATE O2 VIA NC, SR ON TELE. CARIAS DRAINING YELLOW URINE. SAE PICC C/D/I/PATENT. VASOPRESSOR MED INFUSING. PT'S CARE WILL BE ENDORSED TO JOINER RN FOR CONTINUITY OF CARE. CALL LIGHT WITHIN REACH. BED IN LOW AND LOCKED POSITION. PT'S AT BEDSIDE UPDATED ON PT'S CONDITION.
[2017-02-11] VITALS (90 sets, daily range): BP systolic 82–114; BP diastolic 41–66
[2017-02-11 04:50] LABS: HEMATOCRIT 28 % (39-51); HEMOGLOBIN 9.2 g/dL (13.5-17.5); LYMPHOCYTES # (AUTO) 0.2 /CMM (0.8-4.8); LYMPHOCYTES % (AUTO) 1.5 % (20.0-44.0); MEAN CORPUSCULAR HEMOGLOBIN 29 PG (26.0-33.0); MEAN CORPUSCULAR HGB CONC 33 g/dl (31.0-36.0); MEAN CORPUSCULAR VOLUME 89 fL (80-96); MONOCYTES # (AUTO) 0.3 /CMM (0.1-1.30); MONOCYTES % (AUTO) 2.9 % (2.0-12.0); NEUTROPHILS # (AUTO) 9.9 /CMM (1.8-8.9); NEUTROPHILS % (AUTO) 95.6 % (43.0-81.0); PLATELET COUNT (AUTO) 161 /CMM (150-450); RDW COEFFICIENT OF VARIATION 26.7 (11.5-15.0); RED BLOOD CELL COUNT(AUTO) 3.16 MIL/uL (4.5-6.0); WHITE BLOOD COUNT (AUTO) 10.4 K/uL (4.3-11.0)
[2017-02-11 05:10] LABS: CALCIUM, SERUM 8.2 mg/dL (8.5-10.1); CHLORIDE 104 mmol/L (98-107); CREATININE 1.7 mg/dL (0.6-1.3); GLUCOSE 108 mg/dL (74-106); PHOSPHORUS 3.7 mg/dL (2.5-4.9); POTASSIUM 3.2 mmol/L (3.5-5.1); SODIUM SERUM 140 mmol/L (136-145); UREA NITROGEN, BLOOD 71 mg/dL (7-18); VANCOMYCIN,TROUGH 19 ug/ml (12-20)
[2017-02-11 05:16] LABS: CARBON DIOXIDE 31 mmol/L (21-32)
--- NOTE | 2017-02-11 08:00 | NUR ---
ICU/RN INITIAL NOTES,AM RECEIVED PT RESTING IN BED. PT SLEEPING, ABLE TO AROUSE EASILY. FOLLOWS COMMANDS. PT ON NASAL CANULA, NO ACUTE DISTRESS NOTED AT THIS TIME. PT ON LEVO FOR BP SUPPORT, 2 MCG. SINUS NANETTE ON TELE. CARIAS IN PLACE DRAINING YELLOW URINE. RIGHT UPPER ARM PICC LINE PATENT AND INTACT. CVP ZEROED AND CALIBRATED. PT TURNED AND REPOSITIONED. ALL NEEDS WILL BE ATTENDED TO, BED IN LOW POSITION, SIDE RAILS UP, CALL LIGHT WITHIN REACH. WILL CONTINUE CARE. PT ON LOW AIR LOSS MATTRESS FOR SKIN PROTECTION
[2017-02-11] MEDS: LACTOBACILLUS RHAMNOSUS GG 1 EACH CAP.SPRINK PO SCH ×2 (08:12→17:55)
[2017-02-11] MEDS: HYDROCORTISONE SOD SUCCINATE 100 MG/2 ML VIAL IV SCH ×2 (08:12→17:55)
[2017-02-11] MEDS: BLOOD SUGAR DIAGNOSTIC 1 EACH STRIP IN SCH ×4 (08:12→21:45)
[2017-02-11] MEDS: VANCOMYCIN 0.75 GM in IV D5W 250 ML IV SCH (08:12)
[2017-02-11] MEDS: PREGABALIN 25 MG CAPSULE PO SCH ×3 (08:12→17:55)
[2017-02-11] MEDS: ALLOPURINOL 100 MG TABLET PO SCH (08:13)
[2017-02-11] MEDS: VIT B CMPLX 3/FA/VIT C/BIOTIN 1 TAB TABLET PO SCH (08:13)
[2017-02-11] MEDS: SERTRALINE HCL 50 MG TABLET PO SCH (08:13)
[2017-02-11] MEDS: CHOLECALCIFEROL 1,000 UNIT TABLET (VIT D3) PO SCH (08:13)
[2017-02-11] MEDS: APIXABAN 2.5 MG TABLET PO SCH ×2 (08:13→17:54)
[2017-02-11] MEDS: Z GUARD REMEDY 2 OZ OINT TP SCH (08:19)
[2017-02-11] MEDS: CADEXOMER IODINE 40 GM TUBE TP SCH (08:21)
[2017-02-11] MEDS: MEROPENEM 1 G in IV NS 0.9% 100 ML IV SCH ×2 (09:57→21:30)
[2017-02-11 10:30] LABS: LYMPHOCYTES % (MANUAL) 2 % (16-48); MONOCYTES % (MANUAL) 3 % (0-11.0); NEUTROPHILS % (MANUAL) 95 (42-76)
[2017-02-11] MEDS ORDERED: POTASSIUM CHLORIDE 20 MEQ POWDER PACKET PO ONE (12:00)
--- NOTE | 2017-02-11 15:00 | NUR ---
ICU/RN PHYSICAL THERAPY PT SEEN THIS AFTERNOON FOR PHYSICAL THERAPY, PASSIVE/ACTIVE ROM. UNABLE TO GET OUT OF BED
[2017-02-11] MEDS: TAMSULOSIN 0.4 MG CAP.SR.24H PO SCH (17:55)
[2017-02-11] MEDS: INSULIN REGULAR, HUMAN 100 UNIT/ML 3 ML VIAL SQ PRN ×2 (18:17→21:43)
[2017-02-11] MEDS: IV NS 0.9% 500 ML IV PRN (18:26)
[2017-02-11] MEDS: IV NS 0.9% 250 ML IV PRN (18:45)
--- NOTE | 2017-02-11 19:20 | NUR ---
ICU/RN ENDING NOTES,AM REPORT ENDORSED TO NIGHT NURSE FOR CONTINUATION OF CARE. ALL NEEDS MET. PT ON NASAL CANULA, NO DISTRESS NOTED. SAFETY MEASURES TAKEN, BED IN LOW POSITION, SIDE RAILS UP, CALL LIGHT WITHIN REACH. PT CONTINUES TO BE ON 5 MCG OF LEVO FOR BP SUPPORT. CVP ZEROED AND CALIBRATED. PT SEEN THIS AFTERNOON FOR PHYSICAL THERAPY, PASSIVE/ACTIVE ROM. UNABLE TO GET OUT OF BED
[2017-02-12] VITALS (58 sets, daily range): BP systolic 75–121; BP diastolic 47–71
--- NOTE | 2017-02-12 01:00 | NUR ---
DRIVE THRU ORDER TAKER - REC'D PT. AT START OF SHIFT, ALERT & USING FOUL LANGUAGE. PT.DENIED PAIN & HAS DENIED PAIN STILL TO THIS HOUR. PT. IS ON LEVOPHED GTT. AT 5 MCG/MIN. & HAS STAYED ON THIS DOSAGE DUE TO ORDERS TO KEEP MAP >65. SBP'S MAY GO DOWN INTO THE 80'S, BUT MAP HAS BEEN WNL. PT. HAS RUE PICC LINE W/CVP ATTACHED. READINGS HAVE BEEN 6-9 MMHG. AFEBRILE. IRASEMA REMAIN IN LEFT HIP, PT.HAS SEVERE WOUND ISSUES, ELIZABETH.SACRUM. CARIAS CATH TO GRAVITY. PT.IS A FEEDER & IS ON A PUREED-THICKENED DIET. PT IS ALSO ON O2/2L/NC & O2 SATS AT 99%. HEART MONITOR SHOWS. 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 DIFFERENT RHYTHMS ARE NOTED. CONT. POC.
[2017-02-12 04:38] LABS: BASOPHILS % (AUTO) 0.1 % (0.0-2.0); HEMATOCRIT 28 % (39-51); LYMPHOCYTES # (AUTO) 0.3 /CMM (0.8-4.8); LYMPHOCYTES % (AUTO) 2.4 % (20.0-44.0); MEAN CORPUSCULAR HEMOGLOBIN 29 PG (26.0-33.0); MEAN CORPUSCULAR HGB CONC 32 g/dl (31.0-36.0); MEAN CORPUSCULAR VOLUME 90 fL (80-96); MONOCYTES # (AUTO) 0.3 /CMM (0.1-1.30); MONOCYTES % (AUTO) 2.3 % (2.0-12.0); NEUTROPHILS # (AUTO) 10.8 /CMM (1.8-8.9); NEUTROPHILS % (AUTO) 95.2 % (43.0-81.0); PLATELET COUNT (AUTO) 180 /CMM (150-450); RDW COEFFICIENT OF VARIATION 26.5 (11.5-15.0); RED BLOOD CELL COUNT(AUTO) 3.15 MIL/uL (4.5-6.0); WHITE BLOOD COUNT (AUTO) 11.4 K/uL (4.3-11.0)
[2017-02-12 04:45] LABS: CALCIUM, SERUM 8.1 mg/dL (8.5-10.1); CARBON DIOXIDE 31 mmol/L (21-32); CHLORIDE 105 mmol/L (98-107); CREATININE 1.7 mg/dL (0.6-1.3); GLUCOSE 135 mg/dL (74-106); POTASSIUM 3.7 mmol/L (3.5-5.1); SODIUM SERUM 141 mmol/L (136-145); UREA NITROGEN, BLOOD 77 mg/dL (7-18)
[2017-02-12 05:51] LABS: LYMPHOCYTES % (MANUAL) 3 % (16-48); MONOCYTES % (MANUAL) 2 % (0-11.0); NEUTROPHILS % (MANUAL) 95 (42-76)
--- NOTE | 2017-02-12 07:15 | NUR ---
ICU INITIAL NOTES RECEIVED PT IN BED, AWAKE, ABLE TO MAKE NEEDS KNOWN, PT IS ON MONITOR SHOWING SR W/BBB, NO C/O OF CHEST PAIN OR DISCOMFORT AT THIS TIME, PT IS ON 2.5L NC,SATING 100%, BREATHING IS UNLABORED AND EVEN, NO S/S OF RESP.DISTRESS OR SOB NOTED AT THIS TIME, PT HAS F/C DRAINING YELLOW URINE TO GRAVITY, PT HAS SAE PICC, RUNNING LEVO @ 7MCG/MIN, TKO @ 5ML/HR, CVP IN PLACE, C/D/I/PATENT, FLUSHING WELL,NO S/S OF INFECTION/ INFILTRATION NOTED AT THIS TIME, PT IS NOTED WITH L HIP SWELLING WITH IRASEMA INTACT, MULTIPLE SKIN ISSUES NOTED, ALL NEEDS MET AT THIS TIME, ALL SAFETY MEASURES IN PLACE AT ALL TIMES, CALL LIGHT WITHIN EASY REACH, WILL MONITOR PT CLOSELY FOR CHANGES
[2017-02-12] MEDS ORDERED: POTASSIUM CHLORIDE 20 MEQ TAB.PRT.SR PO ONE (07:30)
[2017-02-12] MEDS ORDERED: FUROSEMIDE 100 MG/10 ML VIAL IV ONE (07:30)
[2017-02-12] MEDS: LEVOTHYROXINE SODIUM 88 MCG TABLET PO SCH (08:46)
[2017-02-12] MEDS: HYDROCORTISONE SOD SUCCINATE 100 MG/2 ML VIAL IV SCH ×2 (08:46→16:20)
[2017-02-12] MEDS: PREGABALIN 25 MG CAPSULE PO SCH ×3 (08:46→16:20)
[2017-02-12] MEDS: SERTRALINE HCL 50 MG TABLET PO SCH (08:46)
[2017-02-12] MEDS: CHOLECALCIFEROL 1,000 UNIT TABLET (VIT D3) PO SCH (08:46)
[2017-02-12] MEDS: LACTOBACILLUS RHAMNOSUS GG 1 EACH CAP.SPRINK PO SCH ×2 (08:46→16:20)
[2017-02-12] MEDS: BLOOD SUGAR DIAGNOSTIC 1 EACH STRIP IN SCH ×4 (08:46→21:55)
[2017-02-12] MEDS: VIT B CMPLX 3/FA/VIT C/BIOTIN 1 TAB TABLET PO SCH (08:46)
[2017-02-12] MEDS: ALLOPURINOL 100 MG TABLET PO SCH (08:46)
[2017-02-12] MEDS: MEROPENEM 1 G in IV NS 0.9% 100 ML IV SCH ×2 (08:47→21:04)
[2017-02-12] MEDS: NOREPINEPHRINE 16 MG in IV D5W 500 ML IV PRN (08:47)
[2017-02-12] MEDS: Z GUARD REMEDY 2 OZ OINT TP SCH (08:48)
[2017-02-12] MEDS: CADEXOMER IODINE 40 GM TUBE TP SCH (08:48)
[2017-02-12] MEDS: INSULIN REGULAR, HUMAN 100 UNIT/ML 3 ML VIAL SQ PRN ×4 (09:04→21:21)
[2017-02-12] MEDS: APIXABAN 2.5 MG TABLET PO SCH ×2 (09:04→16:20)
[2017-02-12] MEDS ORDERED: IV SET PRIMARY PUMP SET 1 EA INFUS.SET MC ONE (14:14)
[2017-02-12] MEDS: IV D5/ 0.9% NACL 1,000 ML IV PRN (14:16)
[2017-02-12] MEDS ORDERED: IV NS 0.9% 500 ML IV ONE (16:39)
[2017-02-12] MEDS: TAMSULOSIN 0.4 MG CAP.SR.24H PO SCH (17:58)
[2017-02-13] VITALS (76 sets, daily range): BP systolic 81–130; BP diastolic 43–98
[2017-02-13] MEDS: MORPHINE SULFATE INJ 2 MG/ML DISP.SYRIN IV PRN (02:13)
[2017-02-13 05:19] LABS: HEMATOCRIT 28 % (39-51); HEMOGLOBIN 8.8 g/dL (13.5-17.5); LYMPHOCYTES # (AUTO) 0.2 /CMM (0.8-4.8); LYMPHOCYTES % (AUTO) 2.1 % (20.0-44.0); MEAN CORPUSCULAR HEMOGLOBIN 28 PG (26.0-33.0); MEAN CORPUSCULAR HGB CONC 31 g/dl (31.0-36.0); MEAN CORPUSCULAR VOLUME 91 fL (80-96); MONOCYTES # (AUTO) 0.4 /CMM (0.1-1.30); MONOCYTES % (AUTO) 3.2 % (2.0-12.0); NEUTROPHILS # (AUTO) 10.8 /CMM (1.8-8.9); NEUTROPHILS % (AUTO) 94.7 % (43.0-81.0); PLATELET COUNT (AUTO) 179 /CMM (150-450); RDW COEFFICIENT OF VARIATION 26.7 (11.5-15.0); RED BLOOD CELL COUNT(AUTO) 3.09 MIL/uL (4.5-6.0); WHITE BLOOD COUNT (AUTO) 11.4 K/uL (4.3-11.0)
[2017-02-13 05:37] LABS: ALANINE AMINOTRANSFERASE 21 U/L (12-78); ALKALINE PHOSPHATASE 172 U/L (46-116); ASPARTATE AMINOTRANSFERASE 19 U/L (15-37); BILIRUBIN,TOTAL 1.3 mg/dL (0.2-1.0); CALCIUM, SERUM 8.1 mg/dL (8.5-10.1); CARBON DIOXIDE 34 mmol/L (21-32); CHLORIDE 105 mmol/L (98-107); CREATININE 1.7 mg/dL (0.6-1.3); GLUCOSE 136 mg/dL (74-106); MAGNESIUM 2.2 mg/dL (1.8-2.4); POTASSIUM 3.5 mmol/L (3.5-5.1); SODIUM SERUM 143 mmol/L (136-145); TOTAL PROTEIN, SERUM 5.3 g/dL (6.4-8.2); UREA NITROGEN, BLOOD 75 mg/dL (7-18)
[2017-02-13 05:38] LABS: TROPONIN I 0.066 ng/mL (0.00-0.056)
[2017-02-13 05:58] LABS: LYMPHOCYTES % (MANUAL) 1 % (16-48); MONOCYTES % (MANUAL) 5 % (0-11.0); NEUTROPHILS % (MANUAL) 94 (42-76)
--- NOTE | 2017-02-13 06:27 | NUR ---
LICENSED MARRIAGE AND FAMILY THERAPIST - NO CHANGES FROM PREVIOUS ASSESSMENTS. PT. WAS ADM. A COMP.BEDBATH AT 2AM W/+ [employer] COMP. SKIN/WOUND CARE ADM. SACRAL & BILAT.HEELS REDRESSED & MEPILEX TO SCATTERED AREAS OF BODY. MORPHINE SULFATE 2MG SLOW-IVP ADM. FOR DISCOMFORT OF S/P LEFT HIP SURGERY. CVP READINGS HAVE BEEN IN THE 9-11 MMHG RANGE. PT.IS ON O2/2.5L/NC. HEART MONITOR SHOWS BBB/1ST DEGREE AVB. PT. CAN EXPRESS NEEDS & WANTS. CONT.POC.
[2017-02-13] MEDS: BLOOD SUGAR DIAGNOSTIC 1 EACH STRIP IN SCH ×4 (08:30→22:13)
[2017-02-13] MEDS: ALLOPURINOL 100 MG TABLET PO SCH (08:43)
[2017-02-13] MEDS: VIT B CMPLX 3/FA/VIT C/BIOTIN 1 TAB TABLET PO SCH (08:43)
[2017-02-13] MEDS: CHOLECALCIFEROL 1,000 UNIT TABLET (VIT D3) PO SCH (08:43)
[2017-02-13] MEDS: PREGABALIN 25 MG CAPSULE PO SCH ×3 (08:43→17:16)
[2017-02-13] MEDS: SERTRALINE HCL 50 MG TABLET PO SCH (08:43)
[2017-02-13] MEDS: LACTOBACILLUS RHAMNOSUS GG 1 EACH CAP.SPRINK PO SCH ×2 (08:43→17:15)
[2017-02-13] MEDS: VANCOMYCIN 0.75 GM in IV D5W 250 ML IV SCH (08:44)
[2017-02-13] MEDS: HYDROCORTISONE SOD SUCCINATE 100 MG/2 ML VIAL IV SCH (08:44)
[2017-02-13] MEDS: MEROPENEM 1 G in IV NS 0.9% 100 ML IV SCH ×2 (08:44→22:12)
[2017-02-13] MEDS: LEVOTHYROXINE SODIUM 88 MCG TABLET PO SCH (08:50)
[2017-02-13] MEDS: APIXABAN 2.5 MG TABLET PO SCH ×2 (09:23→17:15)
[2017-02-13] MEDS: CADEXOMER IODINE 40 GM TUBE TP SCH (09:25)
[2017-02-13] MEDS: Z GUARD REMEDY 2 OZ OINT TP SCH (09:26)
[2017-02-13] MEDS: INSULIN REGULAR, HUMAN 100 UNIT/ML 3 ML VIAL SQ PRN ×3 (13:49→22:15)
[2017-02-13] MEDS: TAMSULOSIN 0.4 MG CAP.SR.24H PO SCH (17:20)
--- NOTE | 2017-02-13 20:12 | NUR ---
agricultural systems specialist. initial assessment.RECEIVED THE PT REST ON THE BED. PT AWAKE, ALERT, FOLLOW COMMANDS. PLATEMAKER SHOWING BBB. OXYGEN 2L VIA NASAL CANNULA. SAT 96%. IV RT UPPER ARM PICCLINE. IVF D5NS 60 ML/H, LEVOPHED 6MCG/MIN. FC PATENT. CVP LINE INTECT. OZERO CALIBRATED. HOB ELEVATED, TURN AND REPOSITION Q2H. WILL CONTINUE TO MONITOR VITALS.
[2017-02-13] MEDS: IV D5/ 0.9% NACL 1,000 ML IV PRN (22:12)
[2017-02-14] VITALS (82 sets, daily range): BP systolic 78–109; BP diastolic 39–72
--- NOTE | 2017-02-14 04:31 | NUR ---
WATCH SUPERVISOR. AM CARE, ORAL CARE, BED BATH GIVEN. LINEN CHANGED, REMAINING SAME OXYGEN 2L VIA NASAAL CANNULA. SAT 98%. NO ACUTE DISTRESS NOTED. SALVATIONIST SHOWING NSR. IV RT UPPER ARM PICC LINE. IVF D5NS 60 ML/H, LEVOPHED 6MG/MIN. FC PATENT URINE DRAINING. AFEBRILE. TURN AND REPOSITION Q2H. WILL CONTINUE TO MONITOR VITALS.
[2017-02-14 05:00] LABS: HEMATOCRIT 27 % (39-51); HEMOGLOBIN 8.7 g/dL (13.5-17.5); LYMPHOCYTES # (AUTO) 0.2 /CMM (0.8-4.8); LYMPHOCYTES % (AUTO) 1.5 % (20.0-44.0); MEAN CORPUSCULAR HEMOGLOBIN 29 PG (26.0-33.0); MEAN CORPUSCULAR HGB CONC 32 g/dl (31.0-36.0); MEAN CORPUSCULAR VOLUME 90 fL (80-96); MONOCYTES # (AUTO) 0.5 /CMM (0.1-1.30); MONOCYTES % (AUTO) 3.5 % (2.0-12.0); PLATELET COUNT (AUTO) 189 /CMM (150-450); RDW COEFFICIENT OF VARIATION 26.3 (11.5-15.0); RED BLOOD CELL COUNT(AUTO) 3.05 MIL/uL (4.5-6.0); WHITE BLOOD COUNT (AUTO) 13.7 K/uL (4.3-11.0)
[2017-02-14 05:55] LABS: LYMPHOCYTES % (MANUAL) 2 % (16-48); MONOCYTES % (MANUAL) 5 % (0-11.0); NEUTROPHILS % (MANUAL) 93 (42-76)
[2017-02-14 06:46] LABS: ALANINE AMINOTRANSFERASE 24 U/L (12-78); ALKALINE PHOSPHATASE 164 U/L (46-116); ASPARTATE AMINOTRANSFERASE 24 U/L (15-37); BILIRUBIN,TOTAL 1.2 mg/dL (0.2-1.0); CALCIUM, SERUM 8.1 mg/dL (8.5-10.1); CARBON DIOXIDE 36 mmol/L (21-32); CHLORIDE 106 mmol/L (98-107); CREATININE 1.7 mg/dL (0.6-1.3); GLUCOSE 142 mg/dL (74-106); MAGNESIUM 2.1 mg/dL (1.8-2.4); PHOSPHORUS 3.8 mg/dL (2.5-4.9); POTASSIUM 3.7 mmol/L (3.5-5.1); SODIUM SERUM 142 mmol/L (136-145); TOTAL PROTEIN, SERUM 5.2 g/dL (6.4-8.2); UREA NITROGEN, BLOOD 74 mg/dL (7-18)
[2017-02-14] MEDS: BLOOD SUGAR DIAGNOSTIC 1 EACH STRIP IN SCH ×4 (07:30→22:05)
[2017-02-14] MEDS: SERTRALINE HCL 50 MG TABLET PO SCH (09:10)
[2017-02-14] MEDS: VIT B CMPLX 3/FA/VIT C/BIOTIN 1 TAB TABLET PO SCH (09:10)
[2017-02-14] MEDS: PREGABALIN 25 MG CAPSULE PO SCH ×3 (09:10→16:02)
[2017-02-14] MEDS: CHOLECALCIFEROL 1,000 UNIT TABLET (VIT D3) PO SCH (09:10)
[2017-02-14] MEDS: ALLOPURINOL 100 MG TABLET PO SCH (09:10)
[2017-02-14] MEDS: LACTOBACILLUS RHAMNOSUS GG 1 EACH CAP.SPRINK PO SCH ×2 (09:11→16:02)
[2017-02-14] MEDS: HYDROCORTISONE SOD SUCCINATE 100 MG/2 ML VIAL IV SCH (09:11)
[2017-02-14] MEDS: MEROPENEM 1 G in IV NS 0.9% 100 ML IV SCH (09:25)
[2017-02-14] MEDS: APIXABAN 2.5 MG TABLET PO SCH ×2 (09:25→17:44)
[2017-02-14] MEDS: CADEXOMER IODINE 40 GM TUBE TP SCH (09:26)
[2017-02-14] MEDS: Z GUARD REMEDY 2 OZ OINT TP SCH (09:27)
[2017-02-14] MEDS ORDERED: IV SET PRIMARY PUMP SET 1 EA INFUS.SET MC ONE ×2 (09:58→19:48)
[2017-02-14] MEDS: ALBUMIN 25% 25 GM in PREMIX 1 EA IV SCH ×3 (10:02→21:26)
[2017-02-14] MEDS: MORPHINE SULFATE INJ 2 MG/ML DISP.SYRIN IV PRN ×3 (15:58→16:30)
[2017-02-14] MEDS: NOREPINEPHRINE 16 MG in IV D5W 500 ML IV PRN (16:11)
[2017-02-14] MEDS: TAMSULOSIN 0.4 MG CAP.SR.24H PO SCH (17:44)
[2017-02-14] MEDS: INSULIN REGULAR, HUMAN 100 UNIT/ML 3 ML VIAL SQ PRN ×2 (17:46→21:50)
[2017-02-15] VITALS (37 sets, daily range): BP systolic 81–106; BP diastolic 40–63
[2017-02-15] MEDS: FUROSEMIDE 20 MG/2 ML VIAL IV SCH ×3 (00:49→16:45)
[2017-02-15] MEDS: ALBUMIN 25% 25 GM in PREMIX 1 EA IV SCH (03:12)
--- NOTE | 2017-02-15 04:00 | NUR ---
QUALITY ASSURANCE AUDITOR - PT. REMAINS ON LEVOPHED GTT. AT 7 MCG/MIN. PT'S SBP'S ARE IN THE 90'S-LOW 100'S. PT'S CVP READINGS ARE 9-14MM/HG. PT.WAS ADM. MORPHINE SULFATE 2MG-SLOW IVP, DURING HIS BEDBATH/DRESSING CHANGES. PHONED FOR PAIN CONTROL. ORDERS REC'D. S/P LEFT HIP ORIF STILL HAS IRASEMA INTACT. PT. HAD ONE LARGE BM DURING BEDBATH. SCROTUM IS EDEMATOUS/ENLARGED. ELEVATED ON TOWELS. BILAT. HEELS WERE REDRESSED. SACRAL WOUND REDRESSED PER DR. AYERS'S NOTES. PEDAL PULSES VERY WEAK, BUT AUDIBLE W/DOPPLER. PT.REMAINS ON O2/2L/NC & RALES ARE AUSC. BILATERALLY. PINK NOTES ON EMAR WERE REMOVED FROM 02/12/2017. CONT. POC.
[2017-02-15] MEDS: MORPHINE SULFATE INJ 2 MG/ML DISP.SYRIN IV PRN (04:18)
[2017-02-15 04:55] LABS: HEMATOCRIT 27 % (39-51); HEMOGLOBIN 8.7 g/dL (13.5-17.5); LYMPHOCYTES # (AUTO) 0.2 /CMM (0.8-4.8); MEAN CORPUSCULAR HEMOGLOBIN 29 PG (26.0-33.0); MEAN CORPUSCULAR HGB CONC 32 g/dl (31.0-36.0); MEAN CORPUSCULAR VOLUME 91 fL (80-96); MONOCYTES # (AUTO) 0.5 /CMM (0.1-1.30); NEUTROPHILS # (AUTO) 16.8 /CMM (1.8-8.9); PLATELET COUNT (AUTO) 166 /CMM (150-450); RDW COEFFICIENT OF VARIATION 26.2 (11.5-15.0); RED BLOOD CELL COUNT(AUTO) 2.98 MIL/uL (4.5-6.0); WHITE BLOOD COUNT (AUTO) 17.5 K/uL (4.3-11.0)
[2017-02-15 05:24] LABS: CALCIUM, SERUM 8.4 mg/dL (8.5-10.1); CARBON DIOXIDE 32 mmol/L (21-32); CHLORIDE 106 mmol/L (98-107); CREATININE 1.7 mg/dL (0.6-1.3); GLUCOSE 122 mg/dL (74-106); MAGNESIUM 2.1 mg/dL (1.8-2.4); PHOSPHORUS 4.2 mg/dL (2.5-4.9); POTASSIUM 4.1 mmol/L (3.5-5.1); SODIUM SERUM 143 mmol/L (136-145); UREA NITROGEN, BLOOD 76 mg/dL (7-18)
[2017-02-15 05:53] LABS: LYMPHOCYTES % (MANUAL) 1 % (16-48); MONOCYTES % (MANUAL) 2 % (0-11.0); NEUTROPHILS % (MANUAL) 97 (42-76)
[2017-02-15] MEDS ORDERED: HYDROCODONE/APAP 5/325MG 1 EACH TABLET ONE (06:21)
[2017-02-15] MEDS: HYDROCODONE/APAP 5/325MG 1 EACH TABLET PO PRN (06:32)
[2017-02-15] MEDS: BLOOD SUGAR DIAGNOSTIC 1 EACH STRIP IN SCH ×4 (07:39→21:45)
[2017-02-15] MEDS: ALLOPURINOL 100 MG TABLET PO SCH (08:27)
[2017-02-15] MEDS: CHOLECALCIFEROL 1,000 UNIT TABLET (VIT D3) PO SCH (08:27)
[2017-02-15] MEDS: LACTOBACILLUS RHAMNOSUS GG 1 EACH CAP.SPRINK PO SCH ×2 (08:27→16:45)
[2017-02-15] MEDS: PREGABALIN 25 MG CAPSULE PO SCH ×3 (08:27→16:45)
[2017-02-15] MEDS: HYDROCORTISONE SOD SUCCINATE 100 MG/2 ML VIAL IV SCH (08:27)
[2017-02-15] MEDS: VIT B CMPLX 3/FA/VIT C/BIOTIN 1 TAB TABLET PO SCH (08:27)
[2017-02-15] MEDS: SERTRALINE HCL 50 MG TABLET PO SCH (08:27)
[2017-02-15] MEDS: Z GUARD REMEDY 2 OZ OINT TP SCH (08:28)
[2017-02-15] MEDS: CADEXOMER IODINE 40 GM TUBE TP SCH (08:28)
[2017-02-15] MEDS: APIXABAN 2.5 MG TABLET PO SCH ×2 (08:29→16:48)
[2017-02-15] MEDS ORDERED: IV NS 0.9% 500 ML IV ONE (09:31)
[2017-02-15] MEDS ORDERED: NOREPINEPHRINE 16 MG in IV D5W 500 ML IV PRN (10:00)
[2017-02-15] MEDS: INSULIN REGULAR, HUMAN 100 UNIT/ML 3 ML VIAL SQ PRN ×2 (13:41→21:49)
[2017-02-15] MEDS: TAMSULOSIN 0.4 MG CAP.SR.24H PO SCH (18:12)
--- NOTE | 2017-02-15 20:00 | NUR ---
agriculture worker. initial assessment.RECEIVED THE PT REST ON THE BED. PT AWAKE, ALERT, FOLLOW COMMANDS. MYSTERY SHOPPER SHOWING BBB. OXYGEN 2L VIA NASAL CANNULA. IV RT UPPER ARM PICC LINE. FC PATENT. CVP LINE INTECT. OZERO CALIBRATED. HOB ELEVATED, TURN AND REPOSITION Q2H. WILL CONTINUE TO MONITOR VITALS.
[2017-02-16] VITALS (30 sets, daily range): BP systolic 84–110; BP diastolic 39–59
[2017-02-16 05:03] LABS: HEMATOCRIT 26 % (39-51); HEMOGLOBIN 8.4 g/dL (13.5-17.5); LYMPHOCYTES # (AUTO) 0.2 /CMM (0.8-4.8); LYMPHOCYTES % (AUTO) 1.9 % (20.0-44.0); MEAN CORPUSCULAR HEMOGLOBIN 29 PG (26.0-33.0); MEAN CORPUSCULAR HGB CONC 32 g/dl (31.0-36.0); MEAN CORPUSCULAR VOLUME 91 fL (80-96); MONOCYTES # (AUTO) 0.4 /CMM (0.1-1.30); MONOCYTES % (AUTO) 3.9 % (2.0-12.0); NEUTROPHILS # (AUTO) 10.4 /CMM (1.8-8.9); NEUTROPHILS % (AUTO) 94.2 % (43.0-81.0); PLATELET COUNT (AUTO) 122 /CMM (150-450); RDW COEFFICIENT OF VARIATION 25.7 (11.5-15.0); RED BLOOD CELL COUNT(AUTO) 2.89 MIL/uL (4.5-6.0)
[2017-02-16 05:20] LABS: CALCIUM, SERUM 8.3 mg/dL (8.5-10.1); CARBON DIOXIDE 29 mmol/L (21-32); CHLORIDE 107 mmol/L (98-107); CREATININE 1.9 mg/dL (0.6-1.3); GLUCOSE 111 mg/dL (74-106); POTASSIUM 4.4 mmol/L (3.5-5.1); SODIUM SERUM 143 mmol/L (136-145)
[2017-02-16 05:30] LABS: UREA NITROGEN, BLOOD 83 mg/dL (7-18)
[2017-02-16 05:32] LABS: LYMPHOCYTES % (MANUAL) 6 % (16-48); MONOCYTES % (MANUAL) 3 % (0-11.0); NEUTROPHILS % (MANUAL) 91 (42-76)
[2017-02-16] MEDS: IV NS 0.9% 250 ML IV PRN (06:06)
--- NOTE | 2017-02-16 07:30 | NUR ---
ICU/RN: PT RECEIVED, A&OX2, DROWSY, ABLE TO COMMUNICATE NEEDS. HEMODYNAMIC MONITORING IN PLACE, CVP AND A-LINE CALIBRATED PER PROTOCOL. FC DRAINING TO GRAVITY. WOUND DRESSINGS C/D/I. WILL CONT TO MONITOR PT.
[2017-02-16] MEDS: CHOLECALCIFEROL 1,000 UNIT TABLET (VIT D3) PO SCH (08:08)
[2017-02-16] MEDS: BLOOD SUGAR DIAGNOSTIC 1 EACH STRIP IN SCH ×4 (08:08→22:01)
[2017-02-16] MEDS: ALLOPURINOL 100 MG TABLET PO SCH (08:08)
[2017-02-16] MEDS: VIT B CMPLX 3/FA/VIT C/BIOTIN 1 TAB TABLET PO SCH (08:09)
[2017-02-16] MEDS: HYDROCORTISONE SOD SUCCINATE 100 MG/2 ML VIAL IV SCH (08:09)
[2017-02-16] MEDS: LACTOBACILLUS RHAMNOSUS GG 1 EACH CAP.SPRINK PO SCH ×2 (08:09→16:46)
[2017-02-16] MEDS: Z GUARD REMEDY 2 OZ OINT TP SCH (08:09)
[2017-02-16] MEDS: SERTRALINE HCL 50 MG TABLET PO SCH (08:09)
[2017-02-16] MEDS: FUROSEMIDE 20 MG/2 ML VIAL IV SCH ×2 (08:09→16:47)
[2017-02-16] MEDS: PREGABALIN 25 MG CAPSULE PO SCH ×3 (08:09→16:47)
[2017-02-16] MEDS: APIXABAN 2.5 MG TABLET PO SCH ×2 (08:17→16:46)
[2017-02-16] MEDS: LEVOTHYROXINE SODIUM 88 MCG TABLET PO SCH (08:17)
[2017-02-16] MEDS: CADEXOMER IODINE 40 GM TUBE TP SCH (08:18)
--- NOTE | 2017-02-16 09:00 | NUR ---
ICU/RN: DUE MEDS ADMINISTERED. PILLS CRUSHED. HOB ELEVATED PER ASPIRATION PRECAUTION. WILL CONT TO MONITOR PT.
--- NOTE | 2017-02-16 13:00 | NUR ---
ICU/RN: PT NOW A&OX3 WITH PERIODS OF FORGETFULNESS, AWAKE AND VERBALIZES NEEDS. TOLERATED LUNCH. ORAL CARE RENDERED. WILL CONT TO MONITOR PT
[2017-02-16] MEDS: MORPHINE SULFATE INJ 2 MG/ML DISP.SYRIN IV PRN (14:22)
--- NOTE | 2017-02-16 15:00 | NUR ---
ICU/RN: WOUND CARE RENDERED. TOLERATED WELL. BED BATH RENDERED.
[2017-02-16] MEDS: TAMSULOSIN 0.4 MG CAP.SR.24H PO SCH (17:05)
[2017-02-16] MEDS: INSULIN REGULAR, HUMAN 100 UNIT/ML 3 ML VIAL SQ PRN ×2 (17:32→21:57)
[2017-02-16] MEDS ORDERED: IV NS 0.9% 500 ML IV ONE ×2 (17:46→18:00)
[2017-02-16] MEDS: HYDROCODONE/APAP 5/325MG 1 EACH TABLET PO PRN (21:41)
[2017-02-17] VITALS (22 sets, daily range): BP systolic 83–110; BP diastolic 42–104
[2017-02-17 04:49] LABS: HEMATOCRIT 26 % (39-51); HEMOGLOBIN 8.3 g/dL (13.5-17.5); LYMPHOCYTES # (AUTO) 0.2 /CMM (0.8-4.8); LYMPHOCYTES % (AUTO) 1.7 % (20.0-44.0); MEAN CORPUSCULAR HEMOGLOBIN 29 PG (26.0-33.0); MEAN CORPUSCULAR HGB CONC 32 g/dl (31.0-36.0); MEAN CORPUSCULAR VOLUME 92 fL (80-96); MONOCYTES # (AUTO) 0.4 /CMM (0.1-1.30); MONOCYTES % (AUTO) 3.8 % (2.0-12.0); NEUTROPHILS # (AUTO) 9.2 /CMM (1.8-8.9); NEUTROPHILS % (AUTO) 94.5 % (43.0-81.0); PLATELET COUNT (AUTO) 117 /CMM (150-450); RDW COEFFICIENT OF VARIATION 25.7 (11.5-15.0); RED BLOOD CELL COUNT(AUTO) 2.84 MIL/uL (4.5-6.0); WHITE BLOOD COUNT (AUTO) 9.7 K/uL (4.3-11.0)
[2017-02-17 04:53] LABS: ALANINE AMINOTRANSFERASE 23 U/L (12-78); ALBUMIN 2.7 g/dL (3.4-5.0); ALKALINE PHOSPHATASE 161 U/L (46-116); ASPARTATE AMINOTRANSFERASE 21 U/L (15-37); BILIRUBIN,TOTAL 1.3 mg/dL (0.2-1.0); CALCIUM, SERUM 8.2 mg/dL (8.5-10.1); CARBON DIOXIDE 30 mmol/L (21-32); CHLORIDE 103 mmol/L (98-107); CREATININE 1.9 mg/dL (0.6-1.3); GLUCOSE 102 mg/dL (74-106); MAGNESIUM 2.3 mg/dL (1.8-2.4); POTASSIUM 4.4 mmol/L (3.5-5.1); SODIUM SERUM 141 mmol/L (136-145); TOTAL PROTEIN, SERUM 5.4 g/dL (6.4-8.2)
[2017-02-17 04:54] LABS: UREA NITROGEN, BLOOD 91 mg/dL (7-18)
[2017-02-17 05:35] LABS: LYMPHOCYTES % (MANUAL) 2 % (16-48); MONOCYTES % (MANUAL) 3 % (0-11.0); NEUTROPHILS % (MANUAL) 95 (42-76)
[2017-02-17] MEDS: BLOOD SUGAR DIAGNOSTIC 1 EACH STRIP IN SCH ×4 (07:47→22:32)
[2017-02-17] MEDS: ALLOPURINOL 100 MG TABLET PO SCH (08:15)
[2017-02-17] MEDS: Z GUARD REMEDY 2 OZ OINT TP SCH (08:16)
[2017-02-17] MEDS: CHOLECALCIFEROL 1,000 UNIT TABLET (VIT D3) PO SCH (08:16)
[2017-02-17] MEDS: LACTOBACILLUS RHAMNOSUS GG 1 EACH CAP.SPRINK PO SCH ×2 (08:16→17:05)
[2017-02-17] MEDS: SERTRALINE HCL 50 MG TABLET PO SCH (08:16)
[2017-02-17] MEDS: PREGABALIN 25 MG CAPSULE PO SCH ×3 (08:16→17:04)
[2017-02-17] MEDS: VIT B CMPLX 3/FA/VIT C/BIOTIN 1 TAB TABLET PO SCH (08:16)
[2017-02-17] MEDS: HYDROCORTISONE SOD SUCCINATE 100 MG/2 ML VIAL IV SCH (08:16)
[2017-02-17] MEDS: APIXABAN 2.5 MG TABLET PO SCH ×2 (08:16→17:04)
[2017-02-17] MEDS: CADEXOMER IODINE 40 GM TUBE TP SCH (08:23)
[2017-02-17] MEDS ORDERED: FUROSEMIDE 20 MG/2 ML VIAL IV ONE (13:00)
--- NOTE | 2017-02-17 13:30 | NUR ---
ICU/RN: JAMAL STRONG ROUNDS; UPDATED ON PT STATUS. DISCUSSED FLUID STATUS, CVP READING, MINIMAL URINE OUTPUT. ORDERS LASIX. IF BP HOLDS OK TO DC A-LINE AND CVP MONITORING AND TRANSFER TO [facility]. AWARE OF PT BASELINE SBP READING VIA AUTOMATIC CUFF IN 80'S WHILE A-LINE READINGS REVEAL SBP IN 90'S TO LOW 100'S.
[2017-02-17] MEDS: TAMSULOSIN 0.4 MG CAP.SR.24H PO SCH (17:05)
[2017-02-17] MEDS: INSULIN REGULAR, HUMAN 100 UNIT/ML 3 ML VIAL SQ PRN ×2 (17:45→22:49)
--- NOTE | 2017-02-17 19:10 | NUR ---
ICU/RN: TRANSFERRED TO [facility] VIA ACLS PROTOCOL. BEDSIDE REPORT GIVEN. ALL MEDICATIONS AND BELONGINGS ACCOUNTED FOR.
--- NOTE | 2017-02-17 20:00 | NUR ---
[facility] RN NOTES RECEIVED PTS AND REPORT FROM ICU NURSE , A/O X2 WITH PERIODS OF FORGETFUL, ON TELE SR WITH IST DEGREE AV BLOCK ,HR OF 59-60S ON NC AT 2LITERS SATING 99% V/S STABLE AFEBRILE . NO SOB NO DISTRESS NO FACIAL GRIMACING NOTED . F/C INTACT AND PATENT DRAINING WITH YELLOWISH URINE OUTPUT , PICCLINE ON RIGHT UPPER ARM INTACT AND PATENT.ALL NEEDS ATTENDED TO ALL DUE GIVEN S ORDERED CALL LIGHT WITHIN REACH , KEPT PTS COMFORTABLE IN BED, WILL CONTINUE TO MONITOR PTS.
--- NOTE | 2017-02-17 21:54 | NUR ---
[facility] RN NOTES: BLOOD SUGAR WAS 124. NO COVERAGE WAS GIVEN. WILL CONTINUE TO MONITOR PT.
[2017-02-18] VITALS: BP 88/49
[2017-02-18 04:00] VITALS: BP 91/45
--- NOTE | 2017-02-18 06:18 | NUR ---
[facility] RN NOTES PTS ON BED COMFORTABLE, NO SOB NO DISTRESS NO FACIAL GRIMACES NOTED , REMAINS ON TELE BBB , SR IST DEGREE ON THE MONITOR , NO SIGNIFICANT CHANGE NOTED V/S STABLE AFEBRILE, WILL ENDORSE TO RN DAY SHIFT FOR CONTINUITY OF CARE.
[2017-02-18] MEDS: BLOOD SUGAR DIAGNOSTIC 1 EACH STRIP IN SCH ×4 (06:29→22:30)
--- NOTE | 2017-02-18 06:37 | NUR ---
[facility] RN NOTE: BLOOD SUGAR WAS 107. NO COVERAGE WAS GIVEN. WILL CONTINUE TO MONITOR AND ENDORSE TO AM NURSE.
[2017-02-18] MEDS: INSULIN REGULAR, HUMAN 100 UNIT/ML 3 ML VIAL SQ PRN ×3 (07:04→22:33)
--- NOTE | 2017-02-18 07:44 | NUR ---
RN [facility]; ASSESSMENT RECEIVED PT AWAKE AND ORIENTED X2. PT DENIES ANY PAIN AT THIS TIME. PT ON MODELING ANALYST. CARIAS CATH INTACT DRAINING TO GRAVITY CLEAR YELLOW URINE. NO ACUTE DISTRESS NOTED. WILL CONTINUE TO MONITOR CLOSELY. CALL LIGHT WITH IN REACH.
[2017-02-18 07:51] LABS: BASOPHILS % (AUTO) 0.1 % (0.0-2.0); EOSINOPHILS % (AUTO) 0.1 % (0.0-6.0); HEMATOCRIT 26 % (39-51); HEMOGLOBIN 8.5 g/dL (13.5-17.5); LYMPHOCYTES # (AUTO) 0.2 /CMM (0.8-4.8); LYMPHOCYTES % (AUTO) 1.8 % (20.0-44.0); MEAN CORPUSCULAR HEMOGLOBIN 29 PG (26.0-33.0); MEAN CORPUSCULAR HGB CONC 32 g/dl (31.0-36.0); MEAN CORPUSCULAR VOLUME 91 fL (80-96); MONOCYTES # (AUTO) 0.3 /CMM (0.1-1.30); MONOCYTES % (AUTO) 3.3 % (2.0-12.0); NEUTROPHILS # (AUTO) 9.3 /CMM (1.8-8.9); NEUTROPHILS % (AUTO) 94.7 % (43.0-81.0); PLATELET COUNT (AUTO) 105 /CMM (150-450); RDW COEFFICIENT OF VARIATION 25.7 (11.5-15.0); RED BLOOD CELL COUNT(AUTO) 2.88 MIL/uL (4.5-6.0); WHITE BLOOD COUNT (AUTO) 9.8 K/uL (4.3-11.0)
[2017-02-18 08:00] VITALS: BP_SYST 87; BP_SYST 90; BP_DIAS 48; BP_DIAS 55
[2017-02-18 08:20] LABS: CALCIUM, SERUM 8.2 mg/dL (8.5-10.1); CARBON DIOXIDE 30 mmol/L (21-32); CHLORIDE 106 mmol/L (98-107); CREATININE 2.1 mg/dL (0.6-1.3); GLUCOSE 115 mg/dL (74-106); MAGNESIUM 2.3 mg/dL (1.8-2.4); PHOSPHORUS 5.2 mg/dL (2.5-4.9); POTASSIUM 4.9 mmol/L (3.5-5.1); SODIUM SERUM 143 mmol/L (136-145)
[2017-02-18 08:23] LABS: UREA NITROGEN, BLOOD 91 mg/dL (7-18)
[2017-02-18] MEDS: VIT B CMPLX 3/FA/VIT C/BIOTIN 1 TAB TABLET PO SCH (08:52)
[2017-02-18] MEDS: LACTOBACILLUS RHAMNOSUS GG 1 EACH CAP.SPRINK PO SCH ×2 (08:52→18:13)
[2017-02-18] MEDS: ALLOPURINOL 100 MG TABLET PO SCH (08:52)
[2017-02-18] MEDS: SERTRALINE HCL 50 MG TABLET PO SCH (08:52)
[2017-02-18] MEDS: CHOLECALCIFEROL 1,000 UNIT TABLET (VIT D3) PO SCH (08:52)
[2017-02-18] MEDS: PREGABALIN 25 MG CAPSULE PO SCH ×3 (08:52→18:13)
[2017-02-18] MEDS: HYDROCORTISONE SOD SUCCINATE 100 MG/2 ML VIAL IV SCH (08:53)
[2017-02-18] MEDS: Z GUARD REMEDY 2 OZ OINT TP SCH (08:53)
[2017-02-18] MEDS: CADEXOMER IODINE 40 GM TUBE TP SCH (08:54)
[2017-02-18] MEDS: APIXABAN 2.5 MG TABLET PO SCH ×2 (08:56→18:15)
[2017-02-18] MEDS: FUROSEMIDE 20 MG/2 ML VIAL IV SCH (11:29)
[2017-02-18 12:00] VITALS: BP 92/57
--- NOTE | 2017-02-18 13:17 | NUR ---
RN [facility]; PRIMARY . TAE CHIEF OPERATIONS OFFICER AT BEDSIDE UPDATE WAS GIVEN. DISCUSSED REGARDING PTS LOW B/P. NEW ORDERS GIVEN TO KEEP SBP GREATER THAN 85 AND/OR MAP GREATER THAN 55. NO ACUTE DISTRESS NOTED.
[2017-02-18 16:00] VITALS: BP_SYST 87; BP_DIAS 51; BP_DIAS 57
[2017-02-18] MEDS: TAMSULOSIN 0.4 MG CAP.SR.24H PO SCH (18:13)
--- NOTE | 2017-02-18 19:51 | NUR ---
[facility] RN NOTES RECEIVED PTS ON BED AWAKE ALERT WITH PERIODS OF FORGETFULNESS, ON TELE -SR WITH BBB ,IST DEGREE ON THE MONITOR .NO SOB NO DISTRESS NOTED . NO FACIAL GRIMACES NOTED . ALL NEEDS ATTENDED TOO CALL LIGHT WITHIN REACH , HOB ELEVATED FOR ASPIRATION PRECAUTION .ALL DUE MEDS GIVEN ORDERED. V/S STABLE TEMP 94.5 PER ORAL ,SPOKE TO DR LOPEZ WITH ORDER FOR DEWAYNE JAMES.WITH F/C CATH INTACT AND PATENT DRAINING WITH YELLOWISH URINE OUTPUT . WITH RIGHT UPPER ARM PICCLINE INTACT AND PATENT. WILL CONTINUE TO MONITOR PTS.
[2017-02-18 20:00] VITALS: BP 95/69
--- NOTE | 2017-02-18 20:30 | NUR ---
skip rn notes dafne krueger applied to pts will recheck temp in an hour.
--- NOTE | 2017-02-18 23:00 | NUR ---
skip rn notes blood sugar done for 10pm 144 -2units of regular insulin given per sliding scale, will check bs again in am , will continue to monitor pts.
--- NOTE | 2017-02-18 23:58 | NUR ---
skip rn notes recheck temp -97.6
[2017-02-19] VITALS: BP_SYST 85; BP_SYST 87; BP_DIAS 40; BP_DIAS 70
[2017-02-19 04:00] VITALS: BP 99/48
--- NOTE | 2017-02-19 05:57 | NUR ---
skip rn notes pts on bed awake , remains on nc at 2 liters of o2 sating 100% no significant change noted , v/s stable afebrile. on tele sr bbb , ist degree, will endorse to rn day shift for continuity of care.
[2017-02-19 06:35] LABS: EOSINOPHILS % (AUTO) 0.1 % (0.0-6.0); HEMATOCRIT 26 % (39-51); HEMOGLOBIN 8.4 g/dL (13.5-17.5); LYMPHOCYTES # (AUTO) 0.2 /CMM (0.8-4.8); MEAN CORPUSCULAR HEMOGLOBIN 29 PG (26.0-33.0); MEAN CORPUSCULAR HGB CONC 32 g/dl (31.0-36.0); MEAN CORPUSCULAR VOLUME 92 fL (80-96); MONOCYTES # (AUTO) 0.5 /CMM (0.1-1.30); MONOCYTES % (AUTO) 4.8 % (2.0-12.0); NEUTROPHILS # (AUTO) 8.8 /CMM (1.8-8.9); NEUTROPHILS % (AUTO) 93.1 % (43.0-81.0); PLATELET COUNT (AUTO) 104 /CMM (150-450); RDW COEFFICIENT OF VARIATION 25.6 (11.5-15.0); RED BLOOD CELL COUNT(AUTO) 2.88 MIL/uL (4.5-6.0); WHITE BLOOD COUNT (AUTO) 9.5 K/uL (4.3-11.0)
--- NOTE | 2017-02-19 06:40 | NUR ---
skip rn notes blood sugar for 730 am is 88 no insulin coverage given per sliding scale. latest temp at 630am is 97.5
[2017-02-19] MEDS: BLOOD SUGAR DIAGNOSTIC 1 EACH STRIP IN SCH ×4 (06:43→21:32)
[2017-02-19] MEDS: INSULIN REGULAR, HUMAN 100 UNIT/ML 3 ML VIAL SQ PRN ×3 (06:43→21:38)
[2017-02-19 06:56] LABS: ALANINE AMINOTRANSFERASE 19 U/L (12-78); ALBUMIN 2.5 g/dL (3.4-5.0); ALKALINE PHOSPHATASE 158 U/L (46-116); ASPARTATE AMINOTRANSFERASE 20 U/L (15-37); BILIRUBIN,TOTAL 1.1 mg/dL (0.2-1.0); CALCIUM, SERUM 8.2 mg/dL (8.5-10.1); CARBON DIOXIDE 33 mmol/L (21-32); CHLORIDE 105 mmol/L (98-107); CREATININE 2.3 mg/dL (0.6-1.3); GLUCOSE 80 mg/dL (74-106); MAGNESIUM 2.4 mg/dL (1.8-2.4); PHOSPHORUS 5.1 mg/dL (2.5-4.9); SODIUM SERUM 142 mmol/L (136-145); TOTAL PROTEIN, SERUM 5.4 g/dL (6.4-8.2)
[2017-02-19 06:57] LABS: UREA NITROGEN, BLOOD 96 mg/dL (7-18)
--- NOTE | 2017-02-19 07:00 | NUR ---
[facility] INITIAL NOTES RECEIVED PT IN BED, AWAKE, FORGETFUL AT TIMES, ABLE TO MAKE NEEDS KNOWN, FOLLOWS SIMPLE COMMANDS, PT IS ON 3L NC, SATING 100%, NO S/S OF RESP.DISTRESS OR SOB NOTED AT THIS TIME, PT IS ON TELE MONITOR SHOWING SR W/ 1 DEGREE BBB @ 68BPM, NO C/O OF DISCOMFORT OR CHEST PAIN AT THIS TIME, PT HAS F/C DRAINING YELLOW URINE TO GRAVITY, PT IS NOTED WITH LEFT HIP IRASEMA IN PLACE, AREA IS RED AND SWOLLEN, NOT PAINFUL FOR PT, PT HAS SAE PICC,SL, FLUSHING WELL, NO BLOOD RETURN NOTED, C/D/I/PATENT, NO S/S OF INFECTION/ INFILTRATION NOTED AT THIS TIME, ALL SAFETY MEASURES IN PLACE AT ALL TIMES, CALL LIGHT WITHIN EASY REACH, WILL MONITOR PT CLOSELY FOR CHANGES
[2017-02-19 08:00] VITALS: BP 125/73
[2017-02-19] MEDS: HYDROCORTISONE SOD SUCCINATE 100 MG/2 ML VIAL IV SCH (08:55)
[2017-02-19] MEDS: FUROSEMIDE 20 MG/2 ML VIAL IV SCH (08:55)
[2017-02-19] MEDS: LACTOBACILLUS RHAMNOSUS GG 1 EACH CAP.SPRINK PO SCH ×2 (08:55→18:06)
[2017-02-19] MEDS: ALLOPURINOL 100 MG TABLET PO SCH (08:56)
[2017-02-19] MEDS: PREGABALIN 25 MG CAPSULE PO SCH ×3 (08:56→18:06)
[2017-02-19] MEDS: Z GUARD REMEDY 2 OZ OINT TP SCH (08:56)
[2017-02-19] MEDS: CHOLECALCIFEROL 1,000 UNIT TABLET (VIT D3) PO SCH (08:56)
[2017-02-19] MEDS: VIT B CMPLX 3/FA/VIT C/BIOTIN 1 TAB TABLET PO SCH (08:56)
[2017-02-19] MEDS: LEVOTHYROXINE SODIUM 88 MCG TABLET PO SCH (08:56)
[2017-02-19] MEDS: SERTRALINE HCL 50 MG TABLET PO SCH (08:56)
[2017-02-19] MEDS: CADEXOMER IODINE 40 GM TUBE TP SCH (08:57)
[2017-02-19] MEDS: APIXABAN 2.5 MG TABLET PO SCH ×2 (08:58→18:06)
[2017-02-19 12:00] VITALS: BP 87/44
--- NOTE | 2017-02-19 13:10 | NUR ---
[facility] NOTES SPOKE TO , RONAN, REGARDING PT SURGICAL INCISION, INFORMED ME THAT SHE WAS UNABLE TO SPEAK TO . PT HAD THE SURGERY AT [facility].
[2017-02-19 16:00] VITALS: BP 79/54
[2017-02-19] MEDS: BOOST GLUCOSE CONTROL VANILLA 237 ML BOX PO SCH (17:00)
[2017-02-19] MEDS: TAMSULOSIN 0.4 MG CAP.SR.24H PO SCH (18:06)
--- NOTE | 2017-02-19 18:30 | NUR ---
[facility] CLOSING NOTES ALL MEDICATIONS GIVEN, ALL ORDERS CARRIED OUT, ALL TREATMENTS CARRIED OUT, PT KEPT CLEAN AND DRY, PT TURNED AND REPOSITIONED, IV REMAINED C/D/I/PATENT, F/C DRAINING WELL, ALL SAFETY MEASURES IN PLACE AT ALL TIMES, AND SON AT BEDSIDE , WILL GIVE REPORT TO PM RN FOR DAMON
[2017-02-19 20:00] VITALS: BP_SYST 87; BP_DIAS 33; BP_DIAS 42
--- NOTE | 2017-02-19 20:58 | NUR ---
RN NOTES RECEIVED IN BED WITH NO RESPIRATORY DISTRESS OR SHORTNESS OF BREATH. ALERT AND ORIENTED X2, VERBALLY ABLE TO COMMUNICATE NEED. FC PATENT AND INTACT DRAINING CLEAR YELLOW WITH NO FOUL ODOR. WITH LEFT HIP WOUND, NO DRAINAGE NOTED. CONTINUOUS MONITORING.
--- NOTE | 2017-02-19 21:40 | NUR ---
[facility] RN NOTES BLOOD SUGAR FOR 10 PM IS 135 =2 UNITS OF REGULAR INSULIN GIVEN PER SLIDING SCALE , WILL CHECK BS AGAIN IN AM .
[2017-02-20] VITALS: BP 92/67
[2017-02-20 04:00] VITALS: BP 86/52
--- NOTE | 2017-02-20 06:09 | NUR ---
RN OUTGOING NOTE NO SIGNIFICANT CHANGE OF CONDITION. REMAINS AFEBRILE. VITAL SIGNS STABLE. STILL ON NASAL CANNULA O2 AT 2LPM. TELE SR BBB 1ST DEGREE ON THE MONITOR. ENDORSE TO AM SHIFT FOR CONTINUITY OF CARE.
[2017-02-20] MEDS: BLOOD SUGAR DIAGNOSTIC 1 EACH STRIP IN SCH ×4 (06:32→21:12)
[2017-02-20] MEDS: INSULIN REGULAR, HUMAN 100 UNIT/ML 3 ML VIAL SQ PRN (06:33)
[2017-02-20 06:35] LABS: EOSINOPHILS % (AUTO) 0.1 % (0.0-6.0); HEMATOCRIT 27 % (39-51); HEMOGLOBIN 8.6 g/dL (13.5-17.5); LYMPHOCYTES # (AUTO) 0.3 /CMM (0.8-4.8); MEAN CORPUSCULAR HEMOGLOBIN 29 PG (26.0-33.0); MEAN CORPUSCULAR HGB CONC 32 g/dl (31.0-36.0); MEAN CORPUSCULAR VOLUME 91 fL (80-96); MONOCYTES # (AUTO) 0.4 /CMM (0.1-1.30); MONOCYTES % (AUTO) 4.2 % (2.0-12.0); NEUTROPHILS # (AUTO) 8.4 /CMM (1.8-8.9); NEUTROPHILS % (AUTO) 92.7 % (43.0-81.0); PLATELET COUNT (AUTO) 88 /CMM (150-450); RDW COEFFICIENT OF VARIATION 25.4 (11.5-15.0); RED BLOOD CELL COUNT(AUTO) 2.93 MIL/uL (4.5-6.0); WHITE BLOOD COUNT (AUTO) 9.1 K/uL (4.3-11.0)
--- NOTE | 2017-02-20 06:35 | NUR ---
RN NOTES BLOOD SUGAR FOR 7:30 AM 116MG/DL. NO COVERAGE PER SLIDING SCALE.
[2017-02-20 06:56] LABS: ALANINE AMINOTRANSFERASE 17 U/L (12-78); ALBUMIN 2.5 g/dL (3.4-5.0); ALKALINE PHOSPHATASE 150 U/L (46-116); ASPARTATE AMINOTRANSFERASE 22 U/L (15-37); BILIRUBIN,TOTAL 1.2 mg/dL (0.2-1.0); CARBON DIOXIDE 32 mmol/L (21-32); CHLORIDE 104 mmol/L (98-107); CREATININE 2.4 mg/dL (0.6-1.3); GLUCOSE 100 mg/dL (74-106); MAGNESIUM 2.5 mg/dL (1.8-2.4); PHOSPHORUS 5.3 mg/dL (2.5-4.9); POTASSIUM 4.9 mmol/L (3.5-5.1); SODIUM SERUM 141 mmol/L (136-145); TOTAL PROTEIN, SERUM 5.4 g/dL (6.4-8.2)
[2017-02-20 07:01] LABS: UREA NITROGEN, BLOOD 101 mg/dL (7-18)
[2017-02-20 08:00] VITALS: BP 88/72
[2017-02-20] MEDS: BOOST GLUCOSE CONTROL VANILLA 237 ML BOX PO SCH ×3 (08:00→17:12)
--- NOTE | 2017-02-20 08:00 | NUR ---
TD/RN AM SHIFT INITIAL NOTES RECEIVED PT ASLEEP IN BED, AROUSEABLE. PT A/O X 2, FORGETFUL. DENIES PAIN. NO ACUTE CHANGE OF CONDITION OR FEVER NOTED. PT ON HUMIDIFIED O2 WITH 2L VIA N/C, SATURATING @ 98%, LUNG SOUNDS, RHONCHI. ON TELE WITH SINUS RHYTHM, HR 88. PICC LINE, FLUSHED, PATENT WITH NO S/S OF INFECTION, SL. CARIAS CATHETER NOTED WITH CLEAR YELLOW URINE OUTPUT. PT IS COMFORTABLE AT THIS TIME. SCHEDULED AM MEDS TO BE GIVEN. CL WITHIN REACHED AND SAFETY MAINTAINED. ON GOING MONITORING.
[2017-02-20] MEDS: FUROSEMIDE 20 MG/2 ML VIAL IV SCH (08:49)
[2017-02-20] MEDS: ALLOPURINOL 100 MG TABLET PO SCH (08:49)
[2017-02-20] MEDS: HYDROCORTISONE SOD SUCCINATE 100 MG/2 ML VIAL IV SCH (08:49)
[2017-02-20 08:50] LABS: BAND % (MANUAL) 1 % (0.0-5.0); LYMPHOCYTES % (MANUAL) 1 % (16-48); MONOCYTES % (MANUAL) 2 % (0-11.0); NEUTROPHILS % (MANUAL) 96 (42-76)
[2017-02-20] MEDS: PREGABALIN 25 MG CAPSULE PO SCH ×3 (08:50→17:11)
[2017-02-20] MEDS: LEVOTHYROXINE SODIUM 88 MCG TABLET PO SCH (08:50)
[2017-02-20] MEDS: LACTOBACILLUS RHAMNOSUS GG 1 EACH CAP.SPRINK PO SCH ×2 (08:50→17:11)
[2017-02-20] MEDS: SERTRALINE HCL 50 MG TABLET PO SCH (08:50)
[2017-02-20] MEDS: VIT B CMPLX 3/FA/VIT C/BIOTIN 1 TAB TABLET PO SCH (08:50)
[2017-02-20] MEDS: CHOLECALCIFEROL 1,000 UNIT TABLET (VIT D3) PO SCH (08:50)
[2017-02-20] MEDS: Z GUARD REMEDY 2 OZ OINT TP SCH (08:51)
[2017-02-20] MEDS: CADEXOMER IODINE 40 GM TUBE TP SCH (08:53)
[2017-02-20] MEDS: APIXABAN 2.5 MG TABLET PO SCH ×2 (08:53→17:11)
--- NOTE | 2017-02-20 10:45 | NUR ---
TD/RN ROUNDS - STEFANIE, LENNY PT SEEN & EXAMINED BY TAE GALVEZ. PT CONVENTIONAL UNDERWRITER PLAN OF CARE IS TO TRANSFER PT TO [facility], DRs. PACKER AND DEV WILL FOLLOW PT. NO NEW ORDERS RECEIVED AT THIS TIME. MONITORING CONTINUED.
--- NOTE | 2017-02-20 11:15 | NUR ---
TD/RN ROUNDS - DR. SILVA PT SEEN & EXAMINED BY DR. SILVA. NO NEW ORDERS RECEIVED AT THIS TIME. MONITORING CONTINUED.
[2017-02-20 12:00] VITALS: BP 93/46
--- NOTE | 2017-02-20 15:40 | NUR ---
TD/RN ROUNDS PT REPOSITIONED. NO CHANGE OF CONDITION. PT'S AT BEDSIDE.
[2017-02-20 16:00] VITALS: BP 89/44
[2017-02-20] MEDS: TAMSULOSIN 0.4 MG CAP.SR.24H PO SCH (17:11)
[2017-02-20] MEDS ORDERED: FEE PK DOSING 1 MIN EA MC ONE (17:45)
[2017-02-20] MEDS: VANCOMYCIN 0.75 GM in IV D5W 250 ML IV SCH (18:27)
[2017-02-20] MEDS: HYDROMORPHONE 1 MG/1 ML DISP.SYRIN IV PRN (18:37)
--- NOTE | 2017-02-20 19:30 | NUR ---
RN INITIAL NOTES RECEIVED PATIENT AWAKE, ALERT AND ORIENTED X2 WITH PERIODS OF FORGETFULNESS. PATIENT ON TELEMETRY MONITORING, REVEALING SB - SR WITH BBB AND 1ST DEGREE HB. NO SOB OR RESPIRATORY DISTRESS NOTED AT THIS TIME, TOLERATING 2L NC WELL AT THIS TIME. NO FACIAL GRIMACES NOTED. HOB ELEVATED FOR ASPIRATION PRECAUTION. CARIAS CATHETER PATENT AND INTACT, DRAINING CLOUDY YELLOW URINE TO GRAVITY. RIGHT UPPER ARM PICC PATENT AND INTACT, NOTED WITH GOOD VENOUS RETURN, FLUSHING WELL, IV ATB CURRENTLY INFUSING AT THIS TIME. WILL CONTINUE TO CLOSELY MONITOR THE PATIENT
--- NOTE | 2017-02-20 19:30 | NUR ---
RN INITIAL NOTES RECEIVED PATIENT ON BED AWAKE ALERT WITH PERIODS OF FORGETFULNESS, ON TELE SB - SR WITH BBB, 1ST DEGREE HB ON EDUCATION REVIEWER. NO SOB OR RESPIRATORY DISTRESS NOTED AT THIS TIME, TOLERATING 2L NC WELL AT THIS TIME. NO FACIAL GRIMACES NOTED. HOB ELEVATED FOR ASPIRATION PRECAUTION. CARIAS CATHETER PATENT AND INTACT, DRAINING CLOUDY YELLOW URINE TO GRAVITY. GT PATENT AND INTACT, ONGOING TUBE FEEDINGS AT PRESCRIBED RATE, TOLERATING WELL. WILL CONTINUE TO CLOSELY MONITOR THE PATIENT Addendum: 02/21/17 at 0750 by CHRISTINE RO RN WRONG PATIENT PLEASE DISREGARD THIS NOTE
[2017-02-20 20:00] VITALS: BP_SYST 86; BP_DIAS 44; BP_DIAS 49
--- NOTE | 2017-02-20 20:00 | NUR ---
RN NOTES PATIENT'S TEMPERATURE 94.5, PLACED ON DEWAYNE HUGGER PRESCRIBED. WILL CONTINUE TO CLOSELY MONITOR
[2017-02-21] VITALS: BP 92/54
[2017-02-21 04:00] VITALS: BP 85/39
[2017-02-21 06:51] LABS: CALCIUM, SERUM 7.8 mg/dL (8.5-10.1); CARBON DIOXIDE 30 mmol/L (21-32); CHLORIDE 106 mmol/L (98-107); CREATININE 2.4 mg/dL (0.6-1.3); GLUCOSE 94 mg/dL (74-106); POTASSIUM 4.6 mmol/L (3.5-5.1); SODIUM SERUM 143 mmol/L (136-145)
[2017-02-21 06:56] LABS: UREA NITROGEN, BLOOD 102 mg/dL (7-18)
--- NOTE | 2017-02-21 07:00 | NUR ---
RN CLOSING NOTES PATIENT RESTING COMFORTABLY IN BED, CONTINUES ON DEWAYNE GEOVANNYER. WILL ENDORSE THE PATIENT TO THE AM SHIFT NURSE FOR DAMON
[2017-02-21] MEDS: BLOOD SUGAR DIAGNOSTIC 1 EACH STRIP IN SCH ×4 (07:37→21:01)
[2017-02-21 08:00] VITALS: BP 101/52
--- NOTE | 2017-02-21 08:00 | NUR ---
TD/RN AM SHIFT INITIAL NOTES RECEIVED PT ASLEEP IN BED, AROUSEABLE. NO ACUTE CHANGE OF CONDITION OR FEVER NOTED. PT A/O X 2, FORGETFUL. DENIES PAIN. PT ON HUMIDIFIED O2 WITH 2L VIA N/C, SATURATING @ 98%, LUNG SOUNDS, CONGESTED, RHONCHI. ON TELE WITH SINUS RHYTHM, HR 63. PICC LINE, FLUSHED, PATENT WITH NO S/S OF INFECTION, SL. CARIAS CATHETER NOTED WITH CLEAR YELLOW URINE OUTPUT. PT IS COMFORTABLE AT THIS TIME. SCHEDULED AM MEDS TO BE GIVEN. CL WITHIN REACHED AND SAFETY MAINTAINED. ON GOING MONITORING.
[2017-02-21] MEDS: CHOLECALCIFEROL 1,000 UNIT TABLET (VIT D3) PO SCH (09:15)
[2017-02-21] MEDS: LACTOBACILLUS RHAMNOSUS GG 1 EACH CAP.SPRINK PO SCH ×2 (09:15→17:45)
[2017-02-21] MEDS: HYDROCORTISONE SOD SUCCINATE 100 MG/2 ML VIAL IV SCH (09:15)
[2017-02-21] MEDS: FUROSEMIDE 20 MG/2 ML VIAL IV SCH (09:15)
[2017-02-21] MEDS: BOOST GLUCOSE CONTROL VANILLA 237 ML BOX PO SCH ×3 (09:15→17:50)
[2017-02-21] MEDS: VIT B CMPLX 3/FA/VIT C/BIOTIN 1 TAB TABLET PO SCH (09:16)
[2017-02-21] MEDS: APIXABAN 2.5 MG TABLET PO SCH ×2 (09:16→17:46)
[2017-02-21] MEDS: SERTRALINE HCL 50 MG TABLET PO SCH (09:16)
[2017-02-21] MEDS: PREGABALIN 25 MG CAPSULE PO SCH ×3 (09:16→17:45)
[2017-02-21] MEDS: CADEXOMER IODINE 40 GM TUBE TP SCH (09:17)
[2017-02-21] MEDS: Z GUARD REMEDY 2 OZ OINT TP SCH (09:17)
[2017-02-21] MEDS: ALLOPURINOL 100 MG TABLET PO SCH (09:18)
[2017-02-21 12:00] VITALS: BP 82/31
[2017-02-21] MEDS: HYDROMORPHONE 1 MG/1 ML DISP.SYRIN IV PRN (12:42)
--- NOTE | 2017-02-21 13:30 | NUR ---
TELE1/RN ROUNDS ROUNDS, NOTED SOAKED DRESSING ON PICC LINE. PICC LINE ASSESSED NOTED HEAVY BLEEDING UNABLE TO CLOT WITH PRESSURE. SITE CLEANSED, APPLIED SURGICEL. PICC LINE POSITIVE OF BLOOD RETURN. STAT CHEST X-RAY ORDERED. PRIMARY MD TO BE NOTIFIED. MONITORING FOR ANY FURTHER BLEEDING.
[2017-02-21] MEDS ORDERED: CELLULOSE,OXIDIZED 1 PKT EACH MC ONE (14:00)
--- NOTE | 2017-02-21 14:01 | NUR ---
TELE1/RN NOTIFICATION SPOKE TO ANESTHESIOLOGY CRNATAE, NOTIFIED HIM FOR NOTED BLEEDING ON PICC LINE. NO NEW ORDERS OBTAINED. MONITORING CONTINUED.
--- NOTE | 2017-02-21 14:46 | NUR ---
TELE1/RN BLEEDING SITE - REASSESSED PICC LINE SITE RE-ASSESSED FOR BLEEDING. DRESSING IS INTACT AND CLEAN, NO BLEEDING NOTED. ON GOING MONITORING.
[2017-02-21 16:00] VITALS: BP 115/90
[2017-02-21] MEDS: TAMSULOSIN 0.4 MG CAP.SR.24H PO SCH (17:45)
[2017-02-21] MEDS: INSULIN REGULAR, HUMAN 100 UNIT/ML 3 ML VIAL SQ PRN ×2 (17:48→21:16)
--- NOTE | 2017-02-21 18:30 | NUR ---
TELE1/RN ROUNDS - INFECTIOUS DISEASE (CDL DRIVER) UPDATED PT'S CONDITION AND PLAN OF CARE. PT SEN & EXAMINED BY CDL DRIVER CELIA. NO NEW ORDERS RECEIVED AT THIS TIME. ALSO TOLD HER TO SPEAK TO PT'S PRIMARY CDL DRIVER TAE. MONITORING CONTINUED.
--- NOTE | 2017-02-21 19:24 | NUR ---
TELE1/RN AM SHIFT END NOTES ALL NEEDS MET. NO ACUTE CHANGE OF CONDITION NOTED DURING THE SHIFT. PT ENDORSED TO PM NURSE TO CONTINUE CARE. CL WITHIN REACHED AND SAFETY MAINTAINED.
[2017-02-21 20:00] VITALS: BP 116/97
[2017-02-21] MEDS ORDERED: SECONDARY IV SET 1 EA INFUS.SET MC ONE (21:01)
[2017-02-21] MEDS ORDERED: IV SET PRIMARY PUMP SET 1 EA INFUS.SET MC ONE (21:01)
[2017-02-21] MEDS: CEFEPIME 1 GM in IV D5W 50 ML IV SCH (21:01)
[2017-02-22] VITALS (7 sets, daily range): BP systolic 78–129; BP diastolic 38–79
--- NOTE | 2017-02-22 01:00 | NUR ---
RN NOTES 0000: BP NOTED TO BE LOW: 78/63, RECHECKED 83/38. FIRST AXILLARY TEMPERATURE 97.5, UNABLE TO READ TEMP AFTER THAT. RECTAL TEMP 95.0. PATIENT PLACED IN [place] POSITION, DEWAYNE HUGGER APPLIED. BLOOD SUGAR 145. 0100: VITAL SIGNS RECHECKED: TEMP 96.1 AXILLARY, SLOWLY RISING, DEWAYNE HUGGER KEPT IN PLACE. BP NOW 91/46. PATIENT PLACED IN FLAT POSITION. WILL CONTINUE TO CLOSELY MONITOR.
[2017-02-22 07:21] LABS: CALCIUM, SERUM 7.8 mg/dL (8.5-10.1); CARBON DIOXIDE 29 mmol/L (21-32); CHLORIDE 105 mmol/L (98-107); CREATININE 2.8 mg/dL (0.6-1.3); GLUCOSE 117 mg/dL (74-106); POTASSIUM 4.7 mmol/L (3.5-5.1); SODIUM SERUM 141 mmol/L (136-145)
--- NOTE | 2017-02-22 07:30 | NUR ---
RN NOTES: INITIAL NOTES: PT RECEIVED AWAKE ALERT ORIENTED. ON 2LPM O2 VIA NC. APPEARS COMFORTABLE. DENIES PAIN ?DISCOMFORT. ABLE TO VERBALIZE NEEDS. IV SITE INTACT, ABLE TO FLUSH WITHOUT DIFFICULTY. HOB ELEVATED SLIGHTLY. LEGS ALSO ELEVATED. CONTINUE TO MONITOR FOR HYPOTENSION & BODY TEMPERATURE. ON TELE MONITOR SINUS RHYTHM WITH BBB/1 ST DEGREE HB. NOTED MINOR BLEEDING AT PICC LINE SITE. DR. WRIGHT AWARE PT ON ELIQUIS, CONTINUE TO MONITOR FOR BLEEDING. SAFETY MEASURES OBSERVED. CALL LIGHT WITHIN REACH. WILL CONTINUE TO MONITOR.
[2017-02-22 07:34] LABS: UREA NITROGEN, BLOOD 104 mg/dL (7-18)
[2017-02-22] MEDS: BLOOD SUGAR DIAGNOSTIC 1 EACH STRIP IN SCH ×4 (08:20→21:19)
[2017-02-22] MEDS: BOOST GLUCOSE CONTROL VANILLA 237 ML BOX PO SCH ×3 (08:22→17:00)
[2017-02-22] MEDS: PREGABALIN 25 MG CAPSULE PO SCH ×3 (08:23→17:00)
[2017-02-22] MEDS: VIT B CMPLX 3/FA/VIT C/BIOTIN 1 TAB TABLET PO SCH (08:23)
[2017-02-22] MEDS: HYDROCORTISONE SOD SUCCINATE 100 MG/2 ML VIAL IV SCH (08:23)
[2017-02-22] MEDS: LACTOBACILLUS RHAMNOSUS GG 1 EACH CAP.SPRINK PO SCH ×2 (08:23→17:00)
[2017-02-22] MEDS: CHOLECALCIFEROL 1,000 UNIT TABLET (VIT D3) PO SCH (08:23)
[2017-02-22] MEDS: SERTRALINE HCL 50 MG TABLET PO SCH (08:23)
[2017-02-22] MEDS: ALLOPURINOL 100 MG TABLET PO SCH (08:24)
[2017-02-22] MEDS: APIXABAN 2.5 MG TABLET PO SCH ×2 (08:24→17:03)
[2017-02-22] MEDS: Z GUARD REMEDY 2 OZ OINT TP SCH (08:25)
[2017-02-22] MEDS: CADEXOMER IODINE 40 GM TUBE TP SCH (08:26)
[2017-02-22] MEDS: FUROSEMIDE 20 MG/2 ML VIAL IV SCH (08:27)
[2017-02-22] MEDS: INSULIN REGULAR, HUMAN 100 UNIT/ML 3 ML VIAL SQ PRN ×2 (17:05→21:19)
[2017-02-22] MEDS: TAMSULOSIN 0.4 MG CAP.SR.24H PO SCH (17:06)
[2017-02-22] MEDS: VANCOMYCIN 0.75 GM in IV D5W 250 ML IV SCH (18:36)
--- NOTE | 2017-02-22 20:00 | NUR ---
RN NOTES INITIAL ASSESSMENT DONE, PX RECEIVED AWAKE, ALERT, ORIENTED TO NAME AND PLACE; ON NC; PICC ON RT UPPER ARM SLIGHTLY SOAKED WITH BLOOD, CHANGED DRESSING; CARIAS CATH TAPED TO THIGH TO BAG BY GRAVITY; TESTICULAR SWELLING, ELEVATED WITH ELEVATED BY ABD PAD FOR SUPPORT; HEELS OFFLOADED; DRESSINGS ON SKIN LESIONS (SEE SKIN FLOWHSEET); SR ON MONITOR; DISCUSSED PLAN OF CARE.
[2017-02-22] MEDS ORDERED: SECONDARY IV SET 1 EA INFUS.SET MC ONE (20:04)
[2017-02-22] MEDS: IV NS 0.9% 250 ML IV PRN (20:12)
[2017-02-22] MEDS: CEFEPIME 1 GM in IV D5W 50 ML IV SCH (20:12)
[2017-02-23] VITALS: BP 122/75
[2017-02-23 04:00] VITALS: BP 114/78
[2017-02-23] MEDS: BLOOD SUGAR DIAGNOSTIC 1 EACH STRIP IN SCH ×4 (06:58→21:27)
--- NOTE | 2017-02-23 06:59 | NUR ---
RN NOTES CONDITION AND NEURO STATUS UNCHANGED; DENIED PAIN, SOB, N/V; BEDBATH RENDERED AND CHANGED WOUND DRESSINGS FOLLOWING PROTOCOL; NO BM, NO NEW SKIN BREAKDOWN; CARIAS CARE RENDERED; PROCEDURES TOLERATED. CHANGED PICC LINE DRESSING.
--- NOTE | 2017-02-23 07:12 | NUR ---
RN NOTES REPORT GIVEN TO STEPHAN NGUYEN.
[2017-02-23 07:16] LABS: CALCIUM, SERUM 7.6 mg/dL (8.5-10.1); CARBON DIOXIDE 29 mmol/L (21-32); CHLORIDE 104 mmol/L (98-107); CREATININE 2.9 mg/dL (0.6-1.3); GLUCOSE 94 mg/dL (74-106); POTASSIUM 4.5 mmol/L (3.5-5.1); SODIUM SERUM 141 mmol/L (136-145)
[2017-02-23 07:27] LABS: UREA NITROGEN, BLOOD 105 mg/dL (7-18)
[2017-02-23 08:00] VITALS: BP 118/77
[2017-02-23] MEDS: BOOST GLUCOSE CONTROL VANILLA 237 ML BOX PO SCH ×3 (08:20→16:29)
[2017-02-23] MEDS: PREGABALIN 25 MG CAPSULE PO SCH ×3 (08:20→16:24)
[2017-02-23] MEDS: LACTOBACILLUS RHAMNOSUS GG 1 EACH CAP.SPRINK PO SCH ×2 (08:21→16:24)
[2017-02-23] MEDS: HYDROCORTISONE SOD SUCCINATE 100 MG/2 ML VIAL IV SCH (08:21)
[2017-02-23] MEDS: CHOLECALCIFEROL 1,000 UNIT TABLET (VIT D3) PO SCH (08:21)
[2017-02-23] MEDS: VIT B CMPLX 3/FA/VIT C/BIOTIN 1 TAB TABLET PO SCH (08:21)
[2017-02-23] MEDS: SERTRALINE HCL 50 MG TABLET PO SCH (08:21)
[2017-02-23] MEDS: ALLOPURINOL 100 MG TABLET PO SCH (08:21)
[2017-02-23] MEDS: Z GUARD REMEDY 2 OZ OINT TP SCH (08:37)
[2017-02-23] MEDS: CADEXOMER IODINE 40 GM TUBE TP SCH (08:38)
[2017-02-23] MEDS: LEVOTHYROXINE SODIUM 88 MCG TABLET PO SCH (08:39)
--- NOTE | 2017-02-23 09:00 | NUR ---
RN/NOTE: DUE MEDS ADMINISTERED. PILLS CRUSHED. MIXED WITH APPLE SAUCE
[2017-02-23] MEDS: APIXABAN 2.5 MG TABLET PO SCH ×3 (10:04→16:34)
--- NOTE | 2017-02-23 11:30 | NUR ---
RN/NOTE: CARE ENDORSED TO FAINA FOR DAMON.
--- NOTE | 2017-02-23 11:35 | NUR ---
RN INITIAL NOTE DAMON FROM NURSE. PT A/O X2 CONFUSED. NO C/O OF PAIN. NC 2L. WILL CONTINUE TO MONITOR . PT ON MS. ALL SAFETY MEASURES IN PLACE.
[2017-02-23 16:00] VITALS: BP 80/42
--- NOTE | 2017-02-23 18:40 | NUR ---
RN NOTE PT REFUSED COVERAGE B/S 161. PT STATED HE ATE AND DID NOT NEED IT. ALLOWED TO DO GLUCOSE CK.
[2017-02-23] MEDS: TAMSULOSIN 0.4 MG CAP.SR.24H PO SCH (18:49)
--- NOTE | 2017-02-23 19:36 | NUR ---
RN CLOSING NOTE REPORT GIVEN TO JEANNE NGUYEN FOR DAMON. PT A/O X2 CONFUSED. SAE PICC INTACT AND PATENT. NC 2L NO C/O SOB AND PAIN 0/10. SCROTAL SWELLING ELEVATED. PT CLEAN AND DRY. ALL SAFETY MEASURES IN PLACE. WOUND TX RENDERED.
[2017-02-23] MEDS: CEFEPIME 1 GM in IV D5W 50 ML IV SCH (19:59)
[2017-02-23 20:00] VITALS: BP 100/45
--- NOTE | 2017-02-23 20:00 | NUR ---
MS RN NOTE PT IN BED AWAKE. A/O X 2. NO SOB, NO DISTRESS OR DISCOMFORT NOTED. DENIES PAIN. HANGED MAXIPIME 1 G IVP ORDERED. NO S/S OF INFILTRATION NOTED. KEPT HIM DRY AND CLEAN. F/C INTACT AND PATENT DRAINING YELLOWISH COLOR URINE. SIDE RAILS UP X 3 AND CALL LIGHT WITHIN REACH. VSS. CONTINUE TO MONITOR HIM.
[2017-02-23] MEDS: INSULIN REGULAR, HUMAN 100 UNIT/ML 3 ML VIAL SQ PRN (21:26)
[2017-02-24 04:00] VITALS: BP 106/67
[2017-02-24] MEDS: BLOOD SUGAR DIAGNOSTIC 1 EACH STRIP IN SCH ×4 (06:38→22:00)
[2017-02-24] MEDS: INSULIN REGULAR, HUMAN 100 UNIT/ML 3 ML VIAL SQ PRN ×4 (06:40→23:12)
[2017-02-24 06:45] LABS: EOSINOPHILS % (AUTO) 0.5 % (0.0-6.0); HEMATOCRIT 27 % (39-51); HEMOGLOBIN 8.5 g/dL (13.5-17.5); LYMPHOCYTES # (AUTO) 0.1 /CMM (0.8-4.8); LYMPHOCYTES % (AUTO) 1.5 % (20.0-44.0); MEAN CORPUSCULAR HEMOGLOBIN 30 PG (26.0-33.0); MEAN CORPUSCULAR HGB CONC 32 g/dl (31.0-36.0); MEAN CORPUSCULAR VOLUME 92 fL (80-96); MONOCYTES # (AUTO) 0.3 /CMM (0.1-1.30); MONOCYTES % (AUTO) 3.9 % (2.0-12.0); NEUTROPHILS # (AUTO) 7.5 /CMM (1.8-8.9); NEUTROPHILS % (AUTO) 94.1 % (43.0-81.0); PLATELET COUNT (AUTO) 51 /CMM (150-450); RDW COEFFICIENT OF VARIATION 25.7 (11.5-15.0); RED BLOOD CELL COUNT(AUTO) 2.88 MIL/uL (4.5-6.0)
--- NOTE | 2017-02-24 06:58 | NUR ---
MS RN NOTE PT IN BED ASLEEP, AROUSABLE. NO SOB, NO DISTRESS OR DISCOMFORT NOTED. DENIES PAIN. IV SITE INTACT AND PATENT, NO S/S OF INFILTRATION NOTED. KEPT HIM DRY AND CLEAN. F/C INTACT AND PATENT DRAINING YELLOWISH COLOR URINE. SIDE RAILS UP X 3 AND CALL LIGHT WITHIN REACH. VSS. WILL ENDORSE TO DAY SHIFT NURSE FOR CONTINUE TO CARE.
[2017-02-24 06:59] LABS: CALCIUM, SERUM 7.7 mg/dL (8.5-10.1); CARBON DIOXIDE 28 mmol/L (21-32); CHLORIDE 104 mmol/L (98-107); GLUCOSE 120 mg/dL (74-106); MAGNESIUM 2.4 mg/dL (1.8-2.4); PHOSPHORUS 5.1 mg/dL (2.5-4.9); POTASSIUM 4.5 mmol/L (3.5-5.1); SODIUM SERUM 140 mmol/L (136-145)
[2017-02-24 07:03] LABS: UREA NITROGEN, BLOOD 107 mg/dL (7-18)
--- NOTE | 2017-02-24 07:50 | NUR ---
RN INITIAL NOTES PT IS IN BED, SLEEPING, A/OX2, PERIODS OF CONFUSION, REORIENTED PT. ON NC2L SATURATING WELL. IV SITE IS INTACT, ON F/C DRAINING YELLOW URINE. ON PUREED DIET WITH BOOST, THICKENED ONLY. SAE PICC ON TKO. WILL HAVE A CT WITHOUT CONTRAST AT AM. WILL CONTINUE TO MONITOR CALL LIGHT WITHIN REACH. ,
[2017-02-24 08:00] VITALS: BP 80/40
[2017-02-24 08:59] LABS: LYMPHOCYTES % (MANUAL) 4 % (16-48); MONOCYTES % (MANUAL) 2 % (0-11.0); NEUTROPHILS % (MANUAL) 94 (42-76)
--- NOTE | 2017-02-24 09:30 | NUR ---
RN NOTES REPORTED BP OF 76/[address] WRIGHT, ORDERED ONE TIME 500ML OF NS FOR 100ML/HR.
[2017-02-24] MEDS ORDERED: IV NS 0.9% 500 ML IV ONE ×2 (10:16→11:00)
[2017-02-24] MEDS: VIT B CMPLX 3/FA/VIT C/BIOTIN 1 TAB TABLET PO SCH (10:26)
[2017-02-24] MEDS: BOOST GLUCOSE CONTROL VANILLA 237 ML BOX PO SCH ×3 (10:26→17:36)
[2017-02-24] MEDS: PREGABALIN 25 MG CAPSULE PO SCH ×3 (10:27→17:37)
[2017-02-24] MEDS: CHOLECALCIFEROL 1,000 UNIT TABLET (VIT D3) PO SCH (10:27)
[2017-02-24] MEDS: LACTOBACILLUS RHAMNOSUS GG 1 EACH CAP.SPRINK PO SCH ×2 (10:27→17:37)
[2017-02-24] MEDS: HYDROCORTISONE SOD SUCCINATE 100 MG/2 ML VIAL IV SCH (10:28)
[2017-02-24] MEDS: ALLOPURINOL 100 MG TABLET PO SCH (10:28)
[2017-02-24] MEDS: HYDROCODONE/APAP 5/325MG 1 EACH TABLET PO PRN (10:28)
[2017-02-24] MEDS: APIXABAN 2.5 MG TABLET PO SCH ×2 (10:29→17:42)
[2017-02-24] MEDS: SERTRALINE HCL 50 MG TABLET PO SCH (10:29)
[2017-02-24] MEDS: CADEXOMER IODINE 40 GM TUBE TP SCH (10:29)
[2017-02-24] MEDS: Z GUARD REMEDY 2 OZ OINT TP SCH (10:30)
--- NOTE | 2017-02-24 10:30 | NUR ---
RN NOTES RECHECKED PT'S BP 84/45 P 70. - KEEP SBP ABOVE 85 WILL CONTINUE TO MONITOR
--- NOTE | 2017-02-24 11:58 | NUR ---
RN NOTES PER DR WATTS, PT AGREE TO HAVE DIALYSIS, DUE TO HIGH BUN AND CREAT- NEPRO DOCTOR ALREADY IN THE CASE.
[2017-02-24 16:00] VITALS: BP 106/71
[2017-02-24] MEDS: TAMSULOSIN 0.4 MG CAP.SR.24H PO SCH (17:37)
[2017-02-24] MEDS: VANCOMYCIN 0.75 GM in IV D5W 250 ML IV SCH (17:42)
[2017-02-24] MEDS ORDERED: SECONDARY IV SET 1 EA INFUS.SET MC ONE (17:48)
[2017-02-24 20:00] VITALS: BP 109/60
--- NOTE | 2017-02-24 20:00 | NUR ---
RN NOTE RECEIVED PT IN BED ASLEEP, AROUSABLE. A/O X 2, CONFUSED AT TIMES. NO DISTRESS OR DISCOMFORT NOTED. DENIES PAIN. F/C INTACT AND PATENT. REPOSITION HIM Q2H. KEPT HIM DRY AND CLEAN. ALL NEEDS ATTENDED. SIDE RAILS UP X 2 AND CALL LIGHT WITHIN REACH. VSS. CONTINUE TO MONITOR HIM.
[2017-02-24] MEDS: IV NS 0.9% 250 ML IV PRN (20:01)
[2017-02-24] MEDS: CEFEPIME 1 GM in IV D5W 50 ML IV SCH (20:01)
--- NOTE | 2017-02-24 20:16 | NUR ---
RN CLOSING NOTES MONITORED PT V/S CLOSELY, ON 2LPM OF O2 NC TOLERATING IT WELL. IV SITE IS INTACT NO S/SX OF INFECTION/INFILTRATION NOTED. CARIAS CATH DRAINING YELLOW URINE, WOUND CARE PROVIDED, ALL MEDICATIONS GIVEN, AND TOLERATED IT WELL. ALL SAFETY MEASURES MAINTAINED, CALL LIGHT WITHIN REACH. ENDORSED TO PM NURSE FOR CONTINUATION OF CARE.
[2017-02-25] VITALS: BP 114/60
[2017-02-25 04:00] VITALS: BP 105/42
[2017-02-25] MEDS: BLOOD SUGAR DIAGNOSTIC 1 EACH STRIP IN SCH ×4 (06:28→21:39)
--- NOTE | 2017-02-25 06:42 | NUR ---
MS 1 RN NOTE PT IN BED ASLELEP, AROUSABLE. NO DISTRESS OR DISCOMFORT NOTED. TKO SL INTACT AND PATENT, NO S/S OF INFILTRATION NOTED. F/C INTACT AND PATENT DRAINING WELL. KEPT HIM DRY AND CLEAN. REPOSITION HIM Q2H, ALL NEEDS ATTENDED. SIDE RAILS UP X 2 AND CALL LIGHT WITHIN REACH. WILL ENDORSE TO DAY SHIFT NURSE FOR CONTINUE TO CARE.
--- NOTE | 2017-02-25 07:00 | NUR ---
RN INITIAL NOTE REPORT RECEIVED FROM JEANNE RN PM NURSE FOR DAMON. PT A/O X2 WITH CONFUSION. NC 2L. PT MS. FC INTACT. SAE PICC FLUSHED PATENT AND INTACT. WILL CONTINUE TO MONITOR. ALL SAFETY MEASURES IN PLACE.
[2017-02-25 07:19] LABS: BASOPHILS % (AUTO) 0.2 % (0.0-2.0); EOSINOPHILS % (AUTO) 0.2 % (0.0-6.0); HEMATOCRIT 26 % (39-51); HEMOGLOBIN 8.4 g/dL (13.5-17.5); LYMPHOCYTES # (AUTO) 0.2 /CMM (0.8-4.8); LYMPHOCYTES % (AUTO) 2.2 % (20.0-44.0); MEAN CORPUSCULAR HEMOGLOBIN 30 PG (26.0-33.0); MEAN CORPUSCULAR HGB CONC 32 g/dl (31.0-36.0); MEAN CORPUSCULAR VOLUME 92 fL (80-96); MONOCYTES # (AUTO) 0.2 /CMM (0.1-1.30); MONOCYTES % (AUTO) 2.9 % (2.0-12.0); NEUTROPHILS # (AUTO) 7.8 /CMM (1.8-8.9); NEUTROPHILS % (AUTO) 94.5 % (43.0-81.0); RDW COEFFICIENT OF VARIATION 25.9 (11.5-15.0); RED BLOOD CELL COUNT(AUTO) 2.81 MIL/uL (4.5-6.0); WHITE BLOOD COUNT (AUTO) 8.2 K/uL (4.3-11.0)
[2017-02-25 07:31] LABS: PLATELET COUNT (AUTO) 45 /CMM (150-450)
[2017-02-25 07:47] LABS: LYMPHOCYTES % (MANUAL) 6 % (16-48); MONOCYTES % (MANUAL) 2 % (0-11.0); NEUTROPHILS % (MANUAL) 92 (42-76)
[2017-02-25 07:57] LABS: CALCIUM, SERUM 7.5 mg/dL (8.5-10.1); CARBON DIOXIDE 28 mmol/L (21-32); CHLORIDE 103 mmol/L (98-107); CREATININE 3.2 mg/dL (0.6-1.3); GLUCOSE 109 mg/dL (74-106); MAGNESIUM 2.5 mg/dL (1.8-2.4); PHOSPHORUS 5.1 mg/dL (2.5-4.9); POTASSIUM 4.3 mmol/L (3.5-5.1); SODIUM SERUM 137 mmol/L (136-145)
[2017-02-25 08:00] VITALS: BP 125/40
[2017-02-25 08:01] LABS: UREA NITROGEN, BLOOD 108 mg/dL (7-18)
[2017-02-25] MEDS: CHOLECALCIFEROL 1,000 UNIT TABLET (VIT D3) PO SCH (08:20)
[2017-02-25] MEDS: BOOST GLUCOSE CONTROL VANILLA 237 ML BOX PO SCH ×3 (08:20→17:04)
[2017-02-25] MEDS: APIXABAN 2.5 MG TABLET PO SCH (08:20)
[2017-02-25] MEDS: VIT B CMPLX 3/FA/VIT C/BIOTIN 1 TAB TABLET PO SCH (08:20)
[2017-02-25] MEDS: ALLOPURINOL 100 MG TABLET PO SCH (08:20)
[2017-02-25] MEDS: CADEXOMER IODINE 40 GM TUBE TP SCH (08:21)
[2017-02-25] MEDS: PREGABALIN 25 MG CAPSULE PO SCH ×3 (08:21→17:05)
[2017-02-25] MEDS: LACTOBACILLUS RHAMNOSUS GG 1 EACH CAP.SPRINK PO SCH ×2 (08:21→17:05)
[2017-02-25] MEDS: Z GUARD REMEDY 2 OZ OINT TP SCH (08:21)
[2017-02-25] MEDS: HYDROCORTISONE SOD SUCCINATE 100 MG/2 ML VIAL IV SCH (08:21)
[2017-02-25] MEDS: SERTRALINE HCL 50 MG TABLET PO SCH (08:21)
[2017-02-25] MEDS: INSULIN REGULAR, HUMAN 100 UNIT/ML 3 ML VIAL SQ PRN ×3 (11:43→21:43)
[2017-02-25 16:00] VITALS: BP_SYST 121; BP_SYST 126; BP_DIAS 60; BP_DIAS 75
[2017-02-25] MEDS: TAMSULOSIN 0.4 MG CAP.SR.24H PO SCH (17:05)
--- NOTE | 2017-02-25 19:30 | NUR ---
RN CLOSING NOTE REPORT GIVEN TO JENNI NGUYEN PM NURSE FOR DAMON. PT A/O X2 WITH CONFUSION. NC 2L. PT MS. FC INTACT. SAE PICC FLUSHED PATENT AND INTACT. ALL SAFETY MEASURES IN PLACE.
[2017-02-25 20:00] VITALS: BP 103/55
[2017-02-25] MEDS: HYDROCODONE/APAP 5/325MG 1 EACH TABLET PO PRN (21:40)
[2017-02-26] VITALS (7 sets, daily range): BP systolic 80–103; BP diastolic 35–89
[2017-02-26 06:31] LABS: EOSINOPHILS % (AUTO) 0.1 % (0.0-6.0); HEMATOCRIT 25 % (39-51); HEMOGLOBIN 8.1 g/dL (13.5-17.5); LYMPHOCYTES # (AUTO) 0.2 /CMM (0.8-4.8); LYMPHOCYTES % (AUTO) 2.2 % (20.0-44.0); MEAN CORPUSCULAR HEMOGLOBIN 30 PG (26.0-33.0); MEAN CORPUSCULAR HGB CONC 32 g/dl (31.0-36.0); MEAN CORPUSCULAR VOLUME 93 fL (80-96); MONOCYTES # (AUTO) 0.2 /CMM (0.1-1.30); MONOCYTES % (AUTO) 3.3 % (2.0-12.0); NEUTROPHILS # (AUTO) 7.2 /CMM (1.8-8.9); NEUTROPHILS % (AUTO) 94.4 % (43.0-81.0); RED BLOOD CELL COUNT(AUTO) 2.69 MIL/uL (4.5-6.0); WHITE BLOOD COUNT (AUTO) 7.6 K/uL (4.3-11.0)
[2017-02-26] MEDS: BLOOD SUGAR DIAGNOSTIC 1 EACH STRIP IN SCH ×4 (06:34→21:33)
[2017-02-26] MEDS: HYDROCODONE/APAP 5/325MG 1 EACH TABLET PO PRN ×2 (06:34→13:16)
[2017-02-26 06:38] LABS: PLATELET COUNT (AUTO) 45 /CMM (150-450)
[2017-02-26 07:09] LABS: CALCIUM, SERUM 7.4 mg/dL (8.5-10.1); CARBON DIOXIDE 27 mmol/L (21-32); CHLORIDE 105 mmol/L (98-107); GLUCOSE 92 mg/dL (74-106); MAGNESIUM 2.6 mg/dL (1.8-2.4); PHOSPHORUS 4.9 mg/dL (2.5-4.9); POTASSIUM 4.3 mmol/L (3.5-5.1); SODIUM SERUM 141 mmol/L (136-145)
[2017-02-26 07:12] LABS: UREA NITROGEN, BLOOD 106 mg/dL (7-18)
--- NOTE | 2017-02-26 07:18 | NUR ---
RN INITIAL NOTES: REC'D PT ASLEEP ON BED, HOB ELEVATED, A/O X2, EASILY AROUSABLE. ON O2 AT 2LPM/NC, NO SOB. PT HAS SAE PICC LINE, NOTED WITH SOAKED BLOODY DRESSING, IV LINE FLUSHED PATENT/ INTACT W/ NO S/SX OF INFECTION/ INFILTRATION. IV LINE DRESSING CHANGED, PRESSURE APPLIED ON SITE. PROVIDED COMFORT & SAFETY MEASURES. BED KEPT LOW & IN LOCKED POS. CALL LIGHT PLACED W/IN REACH. ASPIRATION OBSERVED STRICTLY. WILL CONTINUE TO MONITOR.
[2017-02-26 07:53] LABS: BAND % (MANUAL) 2 % (0.0-5.0); EOSINOPHILS % (MANUAL) 1 % (0-4); LYMPHOCYTES % (MANUAL) 4 % (16-48); MONOCYTES % (MANUAL) 3 % (0-11.0); NEUTROPHILS % (MANUAL) 90 (42-76)
[2017-02-26] MEDS: VIT B CMPLX 3/FA/VIT C/BIOTIN 1 TAB TABLET PO SCH (09:06)
[2017-02-26] MEDS: CHOLECALCIFEROL 1,000 UNIT TABLET (VIT D3) PO SCH (09:06)
[2017-02-26] MEDS: LACTOBACILLUS RHAMNOSUS GG 1 EACH CAP.SPRINK PO SCH ×2 (09:06→17:45)
[2017-02-26] MEDS: BOOST GLUCOSE CONTROL VANILLA 237 ML BOX PO SCH ×3 (09:06→17:45)
[2017-02-26] MEDS: HYDROCORTISONE SOD SUCCINATE 100 MG/2 ML VIAL IV SCH (09:06)
[2017-02-26] MEDS: PREGABALIN 25 MG CAPSULE PO SCH ×3 (09:06→17:45)
[2017-02-26] MEDS: SERTRALINE HCL 50 MG TABLET PO SCH (09:07)
[2017-02-26] MEDS: CADEXOMER IODINE 40 GM TUBE TP SCH (09:07)
[2017-02-26] MEDS: Z GUARD REMEDY 2 OZ OINT TP SCH (09:07)
[2017-02-26] MEDS: ALLOPURINOL 100 MG TABLET PO SCH (09:07)
[2017-02-26] MEDS: LEVOTHYROXINE SODIUM 88 MCG TABLET PO SCH (09:09)
--- NOTE | 2017-02-26 09:30 | NUR ---
RN NOTES: REC'D CALL FROM DR. HO TO GET CONSENT FOR HD CATH INSERTION. INFORMED HIM THAT PLATELET COUNT IS 45, ORDERED TO TRANSFUSE PLATELET 1 UNIT STAT.
--- NOTE | 2017-02-26 09:50 | NUR ---
RN NOTES: CONSENT FOR HD CATH INSERTION & PLATELET TRANSFUSION GOT FROM PT'S THROUGH PHONE CALL.
--- NOTE | 2017-02-26 10:30 | NUR ---
RN NOTES: DR. MA INSERTED HD NATALIA CATH ON LEFT SUBCLAVIAN. PT TOLERATED PROCEDURE WELL. PT MONITORED FOR BLEEDING ON THE SITE.
--- NOTE | 2017-02-26 11:00 | NUR ---
RN NOTES: DR. MA ORDERED FOR STAT CXR POST HD CATH INSERTION.
[2017-02-26] MEDS ORDERED: PLATELET IV SET 1 EA INFUS.SET MC ONE (14:31)
--- NOTE | 2017-02-26 14:31 | NUR ---
RN NOTES: CONFIRMED W/ DR. ARITA PT FOR HD TODAY & CAN GIVE PLATELET 1 UNIT DURING HD.
--- NOTE | 2017-02-26 15:00 | NUR ---
RN NOTES: STARTED TRANSFUSION OF 1 UNIT PLATELET, MONITORED FOR ANY REACTION.
[2017-02-26] MEDS ORDERED: IV NS 0.9% 1,000 ML ONE (15:11)
--- NOTE | 2017-02-26 15:38 | NUR ---
RN NOTES: DR. ARITA MADE AWARE OF BP 80/40 W/ ORDERS TO GIVE BOLUS OF IVF NS 500 ML. HD STARTED, AHMED INFORMED ABOUT LOW BP AND WILL GIVE ORDERED FLUIDS.
--- NOTE | 2017-02-26 16:30 | NUR ---
RN NOTES: TRANSFUSED 1 UNIT OF PLATELET, NO REACTION NOTED.
--- NOTE | 2017-02-26 17:26 | NUR ---
RN NOTES: HD ENDED, NO OUTPUT. PT TOLERATED PROCEDURE WELL.
[2017-02-26] MEDS: TAMSULOSIN 0.4 MG CAP.SR.24H PO SCH (17:45)
[2017-02-26] MEDS: INSULIN REGULAR, HUMAN 100 UNIT/ML 3 ML VIAL SQ PRN ×2 (17:46→21:35)
[2017-02-26 18:23] LABS: THYROID STIMULATING HORMONE 13.129 uIU/mL (0.358-3.74); URIC ACID 4.5 mg/dL (2.6-7.2)
--- NOTE | 2017-02-26 19:04 | NUR ---
RN CLOSING NOTES: NO ACUTE CHANGES NOTED W/IN SHIFT. PT TOLERATED HD CATH INSERTION WELL HD PROCEDURE, LATEST BP 97/64. NO SOB WHILE ON O2/ NC. SAE PICC LINE, KEPT PATENT/ INTACT W/ NO S/SX OF INFECTION/ INFILTRATION, NO ACTIVE BLEEDING ON THE SITE. KEPT WELL RESTED. NEEDS ATTENDED. BED KEPT LOW & IN LOCKED POS. CALL LIGHT PLACED W/IN REACH. ASPIRATION OBSERVED STRICTLY. WILL ENDORSE TO PM RN FOR DAMON.
[2017-02-26 19:58] LABS: D-DIMER 2.7 mg/L(FEU (0.17-0.50)
--- NOTE | 2017-02-26 20:00 | NUR ---
ms rn notes received pts awake and responsive , on nc at 2liters of 02 sating 97% no sob no distress noted no facial grimaces noted , s/p left subclavian hd access dry patent and intact , no bleeding noted. had hd today zero output noted. v/s stable afebrile.all due meds given as ordered .all needs attended too.call light within reach .kept pts clean dry and comfortable.
[2017-02-26 20:15] LABS: INR 1.22 (0.87-1.13); PROTHROMBIN TIME 13.2 SECS (9.5-12.7)
--- NOTE | 2017-02-26 22:00 | NUR ---
ms rn notes blood sugar for 10pm is 134mg/dl -2 units of regular insulin given per sliding scale pts on po diet , will check bs again at 730am.
[2017-02-27 04:00] VITALS: BP 102/73
--- NOTE | 2017-02-27 07:04 | NUR ---
MS RN NOTES BLOOD SUGAR FOR 730AM IS 90 MG/DL - NO COVERAGE GIVEN PER SLIDING SCALE , V/S STABLE AFEBRILE , WELL ENDORSE TO RN DAY SHIFT FOR CONTINUITY OF CARE.
[2017-02-27] MEDS: BLOOD SUGAR DIAGNOSTIC 1 EACH STRIP IN SCH ×4 (07:06→21:57)
[2017-02-27] MEDS: INSULIN REGULAR, HUMAN 100 UNIT/ML 3 ML VIAL SQ PRN ×3 (07:06→22:01)
--- NOTE | 2017-02-27 07:30 | NUR ---
initial note received patient resting in bed a+ox1, verbalizes needs. breathing even and unlabored with NC 2L O2. karla picc patent with blood return, dressing cdi. f/c patent draining. patient states 8/10 pain. plan to admin analgesic if MD says ok with current BP. discussed plan of care, patient states ok. call light in reach.
[2017-02-27 07:55] LABS: EOSINOPHILS # (AUTO) 0.1 /CMM (0.0-0.7); EOSINOPHILS % (AUTO) 0.6 % (0.0-6.0); HEMATOCRIT 24 % (39-51); HEMOGLOBIN 7.8 g/dL (13.5-17.5); LYMPHOCYTES # (AUTO) 0.2 /CMM (0.8-4.8); MEAN CORPUSCULAR HEMOGLOBIN 30 PG (26.0-33.0); MEAN CORPUSCULAR HGB CONC 32 g/dl (31.0-36.0); MEAN CORPUSCULAR VOLUME 93 fL (80-96); MONOCYTES # (AUTO) 0.3 /CMM (0.1-1.30); MONOCYTES % (AUTO) 3.4 % (2.0-12.0); NEUTROPHILS # (AUTO) 7.7 /CMM (1.8-8.9); PLATELET COUNT (AUTO) 51 /CMM (150-450); RDW COEFFICIENT OF VARIATION 26.1 (11.5-15.0); WHITE BLOOD COUNT (AUTO) 8.2 K/uL (4.3-11.0)
[2017-02-27 08:00] VITALS: BP 81/43
[2017-02-27 08:14] LABS: CALCIUM, SERUM 7.5 mg/dL (8.5-10.1); CARBON DIOXIDE 29 mmol/L (21-32); CHLORIDE 104 mmol/L (98-107); CREATININE 2.5 mg/dL (0.6-1.3); GLUCOSE 81 mg/dL (74-106); MAGNESIUM 2.2 mg/dL (1.8-2.4); POTASSIUM 4.1 mmol/L (3.5-5.1); SODIUM SERUM 141 mmol/L (136-145); UREA NITROGEN, BLOOD 84 mg/dL (7-18)
[2017-02-27 08:33] LABS: BAND % (MANUAL) 2 % (0.0-5.0); EOSINOPHILS % (MANUAL) 1 % (0-4); LYMPHOCYTES % (MANUAL) 3 % (16-48); MONOCYTES % (MANUAL) 1 % (0-11.0); NEUTROPHILS % (MANUAL) 93 (42-76)
[2017-02-27] MEDS: SERTRALINE HCL 50 MG TABLET PO SCH (08:46)
[2017-02-27] MEDS: HYDROCORTISONE SOD SUCCINATE 100 MG/2 ML VIAL IV SCH (08:46)
[2017-02-27] MEDS: LACTOBACILLUS RHAMNOSUS GG 1 EACH CAP.SPRINK PO SCH ×2 (08:46→16:46)
[2017-02-27] MEDS: CHOLECALCIFEROL 1,000 UNIT TABLET (VIT D3) PO SCH (08:46)
[2017-02-27] MEDS: PREGABALIN 25 MG CAPSULE PO SCH ×3 (08:46→16:46)
[2017-02-27] MEDS: VIT B CMPLX 3/FA/VIT C/BIOTIN 1 TAB TABLET PO SCH (08:46)
[2017-02-27] MEDS: BOOST GLUCOSE CONTROL VANILLA 237 ML BOX PO SCH ×3 (08:47→16:47)
[2017-02-27] MEDS: CADEXOMER IODINE 40 GM TUBE TP SCH (08:48)
[2017-02-27] MEDS: Z GUARD REMEDY 2 OZ OINT TP SCH (08:48)
[2017-02-27] MEDS: LEVOTHYROXINE SODIUM 88 MCG TABLET PO SCH (08:51)
[2017-02-27] MEDS: ALLOPURINOL 100 MG TABLET PO SCH (08:51)
[2017-02-27] MEDS: HYDROCODONE/APAP 5/325MG 1 EACH TABLET PO PRN (11:05)
--- NOTE | 2017-02-27 13:22 | NUR ---
s/p HD BP 94/33, no OP
[2017-02-27 16:00] VITALS: BP 82/45
[2017-02-27] MEDS: TAMSULOSIN 0.4 MG CAP.SR.24H PO SCH (17:07)
--- NOTE | 2017-02-27 19:35 | NUR ---
RN OPENING NOTES: RECEIVED PATIENT IN BED ALERT ORIENTED X1-2 WITH NOTED EPISODES OF CONFUSION. ON O2 THERAPY, NOT IN APPARENT DISTRESS. SAE PICC LINE INTACT, FLUSHING WELL WITH BLOOD RETURN ON ONE LUMEN OTHER FLUSHING WELL WITHOUT BLOOD RETURN. HD CATH ON L UPPER CHEST. FC INTACT, DRAINING TO A CLOSED SYSTEM. NO COMPLAINTS OF PAIN AT THIS TIME. SAFETY MEASURES ENSURED. ASPIRATION PREC OBSERVED, CONTINUOUSLY MONITORED ACCORDINGLY.
[2017-02-27 20:00] VITALS: BP 90/52
[2017-02-28] VITALS (8 sets, daily range): BP systolic 83–132; BP diastolic 39–59
[2017-02-28] MEDS: MORPHINE SULFATE INJ 2 MG/ML DISP.SYRIN IV PRN (06:11)
[2017-02-28] MEDS: BLOOD SUGAR DIAGNOSTIC 1 EACH STRIP IN SCH ×4 (06:40→22:20)
[2017-02-28 06:47] LABS: EOSINOPHILS % (AUTO) 0.5 % (0.0-6.0); HEMATOCRIT 25 % (39-51); HEMOGLOBIN 7.8 g/dL (13.5-17.5); LYMPHOCYTES # (AUTO) 0.3 /CMM (0.8-4.8); LYMPHOCYTES % (AUTO) 3.6 % (20.0-44.0); MEAN CORPUSCULAR HEMOGLOBIN 30 PG (26.0-33.0); MEAN CORPUSCULAR HGB CONC 32 g/dl (31.0-36.0); MEAN CORPUSCULAR VOLUME 93 fL (80-96); MONOCYTES # (AUTO) 0.3 /CMM (0.1-1.30); NEUTROPHILS # (AUTO) 7.3 /CMM (1.8-8.9); NEUTROPHILS % (AUTO) 91.9 % (43.0-81.0); RDW COEFFICIENT OF VARIATION 25.9 (11.5-15.0); RED BLOOD CELL COUNT(AUTO) 2.65 MIL/uL (4.5-6.0); WHITE BLOOD COUNT (AUTO) 7.9 K/uL (4.3-11.0)
[2017-02-28 07:09] LABS: CALCIUM, SERUM 7.6 mg/dL (8.5-10.1); CHLORIDE 104 mmol/L (98-107); CREATININE 2.3 mg/dL (0.6-1.3); GLUCOSE 94 mg/dL (74-106); MAGNESIUM 2.2 mg/dL (1.8-2.4); PHOSPHORUS 3.8 mg/dL (2.5-4.9); POTASSIUM 4.4 mmol/L (3.5-5.1); SODIUM SERUM 141 mmol/L (136-145); UREA NITROGEN, BLOOD 66 mg/dL (7-18)
--- NOTE | 2017-02-28 07:39 | NUR ---
RN CLOSING NOTES: PATIENT WITH COMPLAINTS OF PAIN AFTER AM CARE. MORPHINE ORDERED. SKIN ASSESSMENT DONE WITH PHOTODOCUMENTATION FILED. SAFETY MEASURES ENSURED. AM LABS DRAWN, RESULTS PENDING. NO DECLINE IN MENTAL STATUS. ENDORSED TO AM SHIFT RN.
[2017-02-28 07:41] LABS: CARBON DIOXIDE 29 mmol/L (21-32)
--- NOTE | 2017-02-28 07:46 | NUR ---
RN NOTES: PT RECEIVED IN STABLE CONDITION ALERT AWAKE OX1. RESPONSIVE TO VERBAL & TACTILE STIMULI. ABLE TO MAKE NEEDS KNOWN. ON 2LPM O2 VIA NC. NO RESPIRATORY DISTRESS NOTED. SAFETY MEASURES OBSERVED. IV SITE INTACT, FLUSHED WITHOUT DIFFICULTY. APPEARS COMFORTABLE. CALL LIGHT WITHIN REACH. WILL CONTINUE TO MONITOR.
[2017-02-28 07:53] LABS: PLATELET COUNT (AUTO) 42 /CMM (150-450)
[2017-02-28 08:40] LABS: BAND % (MANUAL) 3 % (0.0-5.0); LYMPHOCYTES % (MANUAL) 4 % (16-48); MONOCYTES % (MANUAL) 1 % (0-11.0); NEUTROPHILS % (MANUAL) 92 (42-76)
[2017-02-28] MEDS: HYDROCORTISONE SOD SUCCINATE 100 MG/2 ML VIAL IV SCH (08:57)
[2017-02-28] MEDS: VIT B CMPLX 3/FA/VIT C/BIOTIN 1 TAB TABLET PO SCH (08:57)
[2017-02-28] MEDS: CHOLECALCIFEROL 1,000 UNIT TABLET (VIT D3) PO SCH (08:57)
[2017-02-28] MEDS: PREGABALIN 25 MG CAPSULE PO SCH ×3 (08:57→16:42)
[2017-02-28] MEDS: LACTOBACILLUS RHAMNOSUS GG 1 EACH CAP.SPRINK PO SCH ×2 (08:57→16:42)
[2017-02-28] MEDS: ALLOPURINOL 100 MG TABLET PO SCH (08:57)
[2017-02-28] MEDS: CADEXOMER IODINE 40 GM TUBE TP SCH (08:58)
[2017-02-28] MEDS: Z GUARD REMEDY 2 OZ OINT TP SCH (08:58)
[2017-02-28] MEDS: SERTRALINE HCL 50 MG TABLET PO SCH (09:02)
[2017-02-28] MEDS: BOOST GLUCOSE CONTROL VANILLA 237 ML BOX PO SCH ×3 (09:03→16:42)
[2017-02-28] MEDS: TAMSULOSIN 0.4 MG CAP.SR.24H PO SCH (17:43)
--- NOTE | 2017-02-28 19:24 | NUR ---
RN NOTES: PT REMAINS STABLE DURING SHIFT. REPORT GIVEN TO NEXT SHIFT RN FOR CONTINUITY OF CARE.
--- NOTE | 2017-02-28 19:30 | NUR ---
RN OPENING NOTES: RECEIVED PATIENT IN BED ALERT ORIENTED X1 WITH REPORTED EPISODES OF CONFUSION. ON O2 THERAPY, NOT IN APPARENT DISTRESS. SAE PICC LINE INTACT, FLUSHING WELL WITH BLOOD RETURN ON ONE LUMEN OTHER FLUSHING WELL WITHOUT BLOOD RETURN. HD CATH ON L UPPER CHEST. FC INTACT, DRAINING TO A CLOSED SYSTEM. NO COMPLAINTS OF PAIN AT THIS TIME. SAFETY MEASURES ENSURED. ASPIRATION PREC OBSERVED AT ALL TIMES. TO RENDER GOOD SKIN CARE. CONTINUOUSLY MONITORED ACCORDINGLY.
[2017-03-01 04:00] VITALS: BP 87/52
[2017-03-01] MEDS ORDERED: IV SET PRIMARY PUMP SET 1 EA INFUS.SET MC ONE (04:52)
[2017-03-01] MEDS: MORPHINE SULFATE INJ 2 MG/ML DISP.SYRIN IV PRN (05:01)
[2017-03-01] MEDS: IV NS 0.9% 250 ML IV PRN (05:05)
[2017-03-01] MEDS: BLOOD SUGAR DIAGNOSTIC 1 EACH STRIP IN SCH ×4 (06:30→21:30)
--- NOTE | 2017-03-01 06:45 | NUR ---
RN CLOSING NOTES: PATIENT WITH COMPLAINTS OF PAIN AFTER AM CARE. MORPHINE ORDERED. SKIN CARE AND TREATMENT RENDERED. SAFETY MEASURES ENSURED. AM LABS DRAWN, RESULTS PENDING. NO DECLINE IN MENTAL STATUS NOTED.TO ENDORSE TO AM SHIFT RN.
--- NOTE | 2017-03-01 07:00 | NUR ---
RN NOTES PT RECEIVED ON BED A/O X 1-2 WITH PERIODS OF CONFUSION. PT ON 2 L NASAL CANNULA O2 SAT 99%. CRACKLED HEARD UPON AUSCULTATION. ENCOURAGED DEEP BREATHING AND COUGHING. CARIAS DRAINING TO GRAVITY, YELLOW CLEAR URINE. RIGHT UPPER ARM PICC LINE DRESSING DRY AND INTACT. FLUSHED PICC WITH GOOD BLOOD RETURN. SLIGHT OOZING NOTED ON RIGHT ARM DRESSING, WILL CONTINUE TO MONITOR. HOB ELEVATED. SR UP X3, CALL LIGHT WITHIN EASY REACH. WILL CONTINUE TO MONITOR.
[2017-03-01 07:52] LABS: EOSINOPHILS % (AUTO) 0.3 % (0.0-6.0); HEMATOCRIT 25 % (39-51); HEMOGLOBIN 7.9 g/dL (13.5-17.5); LYMPHOCYTES # (AUTO) 0.2 /CMM (0.8-4.8); LYMPHOCYTES % (AUTO) 2.3 % (20.0-44.0); MEAN CORPUSCULAR HEMOGLOBIN 30 PG (26.0-33.0); MEAN CORPUSCULAR HGB CONC 32 g/dl (31.0-36.0); MEAN CORPUSCULAR VOLUME 93 fL (80-96); MONOCYTES # (AUTO) 0.3 /CMM (0.1-1.30); MONOCYTES % (AUTO) 4.6 % (2.0-12.0); NEUTROPHILS % (AUTO) 92.8 % (43.0-81.0); RDW COEFFICIENT OF VARIATION 25.4 (11.5-15.0); RED BLOOD CELL COUNT(AUTO) 2.65 MIL/uL (4.5-6.0); WHITE BLOOD COUNT (AUTO) 7.6 K/uL (4.3-11.0)
[2017-03-01 07:59] LABS: PLATELET COUNT (AUTO) 40 /CMM (150-450)
[2017-03-01 08:00] VITALS: BP 98/53
[2017-03-01 08:09] LABS: CARCINOEMBRYONIC AG (CEA) 13.2 ng/mL (0.0-4.7)
[2017-03-01 08:14] LABS: CALCIUM, SERUM 7.7 mg/dL (8.5-10.1); CARBON DIOXIDE 31 mmol/L (21-32); CHLORIDE 103 mmol/L (98-107); CREATININE 2.3 mg/dL (0.6-1.3); GLUCOSE 86 mg/dL (74-106); MAGNESIUM 2.3 mg/dL (1.8-2.4); PHOSPHORUS 4.2 mg/dL (2.5-4.9); POTASSIUM 4.5 mmol/L (3.5-5.1); SODIUM SERUM 139 mmol/L (136-145); UREA NITROGEN, BLOOD 73 mg/dL (7-18)
[2017-03-01] MEDS: BOOST GLUCOSE CONTROL VANILLA 237 ML BOX PO SCH ×3 (08:40→17:31)
[2017-03-01] MEDS: VIT B CMPLX 3/FA/VIT C/BIOTIN 1 TAB TABLET PO SCH (08:41)
[2017-03-01] MEDS: LACTOBACILLUS RHAMNOSUS GG 1 EACH CAP.SPRINK PO SCH ×2 (08:41→17:29)
[2017-03-01] MEDS: ALLOPURINOL 100 MG TABLET PO SCH (08:41)
[2017-03-01] MEDS: PREGABALIN 25 MG CAPSULE PO SCH ×3 (08:41→17:29)
[2017-03-01] MEDS: CHOLECALCIFEROL 1,000 UNIT TABLET (VIT D3) PO SCH (08:41)
[2017-03-01] MEDS: SERTRALINE HCL 50 MG TABLET PO SCH (08:41)
[2017-03-01] MEDS: HYDROCORTISONE SOD SUCCINATE 100 MG/2 ML VIAL IV SCH (08:41)
[2017-03-01] MEDS: CADEXOMER IODINE 40 GM TUBE TP SCH (08:43)
[2017-03-01] MEDS: Z GUARD REMEDY 2 OZ OINT TP SCH (08:43)
[2017-03-01 08:58] LABS: BAND % (MANUAL) 7 % (0.0-5.0); EOSINOPHILS % (MANUAL) 1 % (0-4); LYMPHOCYTES % (MANUAL) 5 % (16-48); MONOCYTES % (MANUAL) 2 % (0-11.0); NEUTROPHILS % (MANUAL) 85 (42-76)
[2017-03-01 16:00] VITALS: BP 85/45
[2017-03-01] MEDS: TAMSULOSIN 0.4 MG CAP.SR.24H PO SCH (17:29)
--- NOTE | 2017-03-01 18:39 | NUR ---
RN NOTES PT IN STABLE CONDITION RESTING COMFORTABLY WITH AT BEDSIDE. RESPIRATIONS EVEN AND UNLABORED ON NASAL CANNULA 4L. PT CLEANED AND REPOSITIONED. RIGHT UPPER ARM PICC LINE DRESSING CHANGED. CARIAS DRAINING TO GRAVITY. SIDE RAILS UP X3, BED IN LOWEST POSITION, CALL LIGHT WITHIN REACH.
--- NOTE | 2017-03-01 19:25 | NUR ---
RN NOTES PT ASLEEP WELL ON BED. AOX1 CONFUSED. BILATERAL LUNGS SOUND CRACKLES. REFUSED TO BE SUCTIONED AT THIS TIME. SATING 98% IN O2 2LPM VIA NC. AIRWAY PATENT NO ACUTE RESP DISTRESS IV SITE ON SAE PICC LINE INTACT AND PATENT. F/C DRAINED WITH YELLOW COLOR URINE VIA GRAVITY. HOB KEPT ELEVATED. KEPT PT CLEAN AND COMFORTABLE IN BED. WILL CONTINUE TO MONITOR.
[2017-03-01 20:00] VITALS: BP 107/46
[2017-03-02 04:00] VITALS: BP 91/56
[2017-03-02] MEDS: BLOOD SUGAR DIAGNOSTIC 1 EACH STRIP IN SCH ×3 (06:45→18:46)
[2017-03-02 06:50] LABS: EOSINOPHILS # (AUTO) 0.1 /CMM (0.0-0.7); EOSINOPHILS % (AUTO) 1.4 % (0.0-6.0); HEMATOCRIT 24 % (39-51); HEMOGLOBIN 7.8 g/dL (13.5-17.5); LYMPHOCYTES # (AUTO) 0.2 /CMM (0.8-4.8); LYMPHOCYTES % (AUTO) 3.8 % (20.0-44.0); MEAN CORPUSCULAR HEMOGLOBIN 30 PG (26.0-33.0); MEAN CORPUSCULAR HGB CONC 32 g/dl (31.0-36.0); MEAN CORPUSCULAR VOLUME 94 fL (80-96); MONOCYTES # (AUTO) 0.4 /CMM (0.1-1.30); MONOCYTES % (AUTO) 5.8 % (2.0-12.0); NEUTROPHILS # (AUTO) 5.4 /CMM (1.8-8.9); RDW COEFFICIENT OF VARIATION 25.6 (11.5-15.0); RED BLOOD CELL COUNT(AUTO) 2.58 MIL/uL (4.5-6.0); WHITE BLOOD COUNT (AUTO) 6.1 K/uL (4.3-11.0)
--- NOTE | 2017-03-02 07:00 | NUR ---
RN NOTES PT ASLEEP WELL THROUGHOUT THE SHIFT. STILL CONGESTED. FREQ. SUCTIONED PROVIDED WITH THICK YELLOWISH SECRETION. ALL DUE MEDICINE GIVEN ORDERED. KEPT PT CLEAN AND COMFORTABLE IN BED. WOUND CARE PROVIDED. NO ASE FROM S/P DIALYSIS. VS REMAINED IN STABLE CONDITION SBP> 90'S. WILL ENDORSED CONTINUITY OF CARE TO AM NURSE.
[2017-03-02 07:10] LABS: PLATELET COUNT (AUTO) 42 /CMM (150-450)
--- NOTE | 2017-03-02 07:10 | NUR ---
RN INITIAL NOTE PATIENT RECEIVED IN BED RESTING. NO S/S OF PAIN OR DISCOMFORT. RESPIRATIONS ARE EVEN AND UNLABORED. NO S/S OF RESPIRATORY DISTRESS OR SOB. SATING WELL ON ROOM AIR. CARIAS CATHETER DRAINING TO GRAVITY. IV SITE FLUSHED, PATENT. SKIN IS WARM AND DRY TO TOUCH. SAFETY PRECAUTIONS IMPLEMENTED. BED IN LOCKED, LOW POSITION WITH TWO SIDE RAILS UP. CALL LIGHT WITHIN EASY REACH. WILL CONTINUE TO MONITOR CLOSELY.
[2017-03-02 07:20] LABS: CALCIUM, SERUM 7.7 mg/dL (8.5-10.1); CARBON DIOXIDE 29 mmol/L (21-32); CHLORIDE 104 mmol/L (98-107); CREATININE 2.1 mg/dL (0.6-1.3); GLUCOSE 86 mg/dL (74-106); MAGNESIUM 2.2 mg/dL (1.8-2.4); PHOSPHORUS 3.9 mg/dL (2.5-4.9); POTASSIUM 4.4 mmol/L (3.5-5.1); SODIUM SERUM 140 mmol/L (136-145); UREA NITROGEN, BLOOD 60 mg/dL (7-18)
[2017-03-02 08:00] VITALS: BP 103/61
[2017-03-02 08:23] LABS: EOSINOPHILS % (MANUAL) 2 % (0-4); LYMPHOCYTES % (MANUAL) 3 % (16-48); MONOCYTES % (MANUAL) 3 % (0-11.0); NEUTROPHILS % (MANUAL) 92 (42-76)
[2017-03-02] MEDS: CADEXOMER IODINE 40 GM TUBE TP SCH (09:00)
[2017-03-02] MEDS ORDERED: HYDROCORTISONE SOD SUCCINATE 100 MG/2 ML VIAL IV SCH (09:00)
[2017-03-02] MEDS: Z GUARD REMEDY 2 OZ OINT TP SCH (09:00)
[2017-03-02] MEDS ORDERED: SERTRALINE HCL 50 MG TABLET PO SCH (09:00)
[2017-03-02] MEDS ORDERED: VIT B CMPLX 3/FA/VIT C/BIOTIN 1 TAB TABLET PO SCH (09:00)
[2017-03-02] MEDS ORDERED: HYDROCODONE/APAP 5/325MG 1 EACH TABLET PO PRN (11:30)
[2017-03-02] MEDS ORDERED: HYDROMORPHONE 1 MG/1 ML DISP.SYRIN IV PRN (11:30)
[2017-03-02] MEDS ORDERED: LEVOTHYROXINE SODIUM 88 MCG TABLET PO SCH ×2 (11:40→11:45)
[2017-03-02] MEDS: SERTRALINE HCL 50 MG TABLET PO SCH (11:44)
[2017-03-02] MEDS: BOOST GLUCOSE CONTROL VANILLA 237 ML BOX PO SCH ×3 (11:44→17:29)
[2017-03-02] MEDS: VIT B CMPLX 3/FA/VIT C/BIOTIN 1 TAB TABLET PO SCH (11:45)
[2017-03-02] MEDS: LACTOBACILLUS RHAMNOSUS GG 1 EACH CAP.SPRINK PO SCH ×2 (11:52→17:00)
[2017-03-02] MEDS ORDERED: MORPHINE SULFATE INJ 2 MG/ML DISP.SYRIN IV PRN ×2 (12:00)
[2017-03-02] MEDS ORDERED: DEXTROSE 50%-WATER 50 ML DISP.SYRIN IV PRN (12:00)
[2017-03-02] MEDS ORDERED: ONDANSETRON HCL/PF 4 MG/2 ML VIAL IVP PRN (12:00)
[2017-03-02] MEDS ORDERED: PREGABALIN 25 MG CAPSULE PO SCH (13:00)
[2017-03-02] MEDS: PREGABALIN 25 MG CAPSULE PO SCH ×2 (13:01→18:02)
[2017-03-02 16:00] VITALS: BP 92/56
[2017-03-02] MEDS ORDERED: LACTOBACILLUS RHAMNOSUS GG 1 EACH CAP.SPRINK PO SCH (17:00)
[2017-03-02] MEDS ORDERED: TAMSULOSIN 0.4 MG CAP.SR.24H PO SCH (18:00)
--- NOTE | 2017-03-02 19:30 | NUR ---
MS RN INITIAL NOTE RECEIVED REPORT FROM JACLYN NGUYEN. PT IS IN BED, AWAKE A/O X2 WITH EPISODES OF CONFUSION. LUNG SOUNDS RHONCHI. BOWEL SOUNDS PRESENT. IV PATENT AND INTACT. CARIAS INTACT AND DRAINING URINE. MULTIPLE SKIN ISSUES. AT BEDSIDE. PT AWAITING AMBULANCE DISCHARGE TO [facility]. JACLYN REPORTS THAT SHE GAVE REPORT TO [facility] AT [facility] [phone]. BED IN LOW LOCKED POSITION. WILL CONTINUE TO MONITOR.
[2017-03-02 20:00] VITALS: BP 92/53
--- NOTE | 2017-03-02 21:35 | NUR ---
MS RN MED RESPONSE HERE FOR TRANSPORT. PT STABLE FOR TRANSPORT. SPOKE TO [facility] OF THE DEAF/HARD OF HEARING REGARDING PT BLOOD PRESSURE 92/54. [facility] STATES IT IS OKAY TO BRING THE PATIENT. ENDORSED TO MED RESPONSE EMT.
[2017-03-03] MEDS ORDERED: HYDROCORTISONE SOD SUCCINATE 100 MG/2 ML VIAL IV SCH (09:00)
[2017-03-03] MEDS ORDERED: ALLOPURINOL 100 MG TABLET PO SCH ×2 (09:00)
[2017-03-03] MEDS ORDERED: CHOLECALCIFEROL 1,000 UNIT TABLET (VIT D3) PO SCH (09:00)
== END 2017-03-02 22:12 | DRG 871 ==
LOC: ER 11:06 → ICU 17:39 → TELE-TD 02-17 19:02 → TELE1 02-21 11:37 → MEDSG1 02-23 10:00
PROVIDERS: ADMIT Nurse Practitioner Acute Care; ATTEND Nurse Practitioner Acute Care
PROC: 02HV33Z Insertion of Infusion Device into Superior Vena Cava, Percutaneous Approach (ICD-10-PCS; 2017-01-27)
PROC: B548ZZA Ultrasonography of Superior Vena Cava, Guidance (ICD-10-PCS; 2017-01-27)
PROC: 5A1D60Z (ICD-10-PCS; 2017-01-27)
PROC: 5A09357 Assistance with Respiratory Ventilation, Less than 24 Consecutive Hours, Continuous Positive Airway Pressure (ICD-10-PCS; principal; 2017-02-26)
PROC: 30233N1 Transfusion of Nonautologous Red Blood Cells into Peripheral Vein, Percutaneous Approach (ICD-10-PCS; 2017-02-26)
PROC: 05H633Z Insertion of Infusion Device into Left Subclavian Vein, Percutaneous Approach (ICD-10-PCS; 2017-02-26)
DX: A41.9 Sepsis, unspecified organism (principal); I50.33 Acute on chronic diastolic (congestive) heart failure; N17.0 Acute kidney failure with tubular necrosis; I21.4 Non-ST elevation (NSTEMI) myocardial infarction; R65.21 Severe sepsis with septic shock; G93.40 Encephalopathy, unspecified; E43 Unspecified severe protein-calorie malnutrition; J15.6 Pneumonia due to other Gram-negative bacteria; G93.41 Metabolic encephalopathy; J96.00 Acute respiratory failure, unspecified whether with hypoxia or hypercapnia; L89.614 Pressure ulcer of right heel, stage 4; N39.0 Urinary tract infection, site not specified; L76.32 Postprocedural hematoma of skin and subcutaneous tissue following other procedure; E87.1 Hypo-osmolality and hyponatremia; I13.0 Hypertensive heart and chronic kidney disease with heart failure and stage 1 through stage 4 chronic kidney disease, or unspecified chronic kidney disease; I42.9 Cardiomyopathy, unspecified; R18.8 Other ascites; B19.10 Unspecified viral hepatitis B without hepatic coma; L03.116 Cellulitis of left lower limb; L97.419 Non-pressure chronic ulcer of right heel and midfoot with unspecified severity; D61.818 Other pancytopenia; Z88.8 Allergy status to other drugs, medicaments and biological substances; Z91.011 Allergy to milk products; E87.5 Hyperkalemia; E86.0 Dehydration; D63.8 Anemia in other chronic diseases classified elsewhere; E03.9 Hypothyroidism, unspecified; N40.0 Benign prostatic hyperplasia without lower urinary tract symptoms; E78.5 Hyperlipidemia, unspecified; E87.6 Hypokalemia; F32.9 Major depressive disorder, single episode, unspecified; F03.90 Unspecified dementia, unspecified severity, without behavioral disturbance, psychotic disturbance, mood disturbance, and anxiety; I25.2 Old myocardial infarction; I27.2 Other secondary pulmonary hypertension; I34.0 Nonrheumatic mitral (valve) insufficiency; I44.0 Atrioventricular block, first degree; I45.10 Unspecified right bundle-branch block; N18.9 Chronic kidney disease, unspecified; Z74.01 Bed confinement status; Z96.642 Presence of left artificial hip joint; Z90.49 Acquired absence of other specified parts of digestive tract; Z95.1 Presence of aortocoronary bypass graft; Z87.81 Personal history of (healed) traumatic fracture; Z87.891 Personal history of nicotine dependence; R62.7 Adult failure to thrive; N50.89 Other specified disorders of the male genital organs; R13.10 Dysphagia, unspecified; D50.9 Iron deficiency anemia, unspecified; E11.22 Type 2 diabetes mellitus with diabetic chronic kidney disease; I25.10 Atherosclerotic heart disease of native coronary artery without angina pectoris; K74.60 Unspecified cirrhosis of liver; L89.159 Pressure ulcer of sacral region, unspecified stage; L89.629 Pressure ulcer of left heel, unspecified stage; I87.2 Venous insufficiency (chronic) (peripheral); M10.9 Gout, unspecified; N20.0 Calculus of kidney; N28.1 Cyst of kidney, acquired; E11.621 Type 2 diabetes mellitus with foot ulcer; E11.65 Type 2 diabetes mellitus with hyperglycemia; Z79.4 Long term (current) use of insulin; Z79.84 Long term (current) use of oral hypoglycemic drugs; I48.0 Paroxysmal atrial fibrillation; T38.0X5A Adverse effect of glucocorticoids and synthetic analogues, initial encounter; Y92.009 Unspecified place in unspecified non-institutional (private) residence as the place of occurrence of the external cause; Y83.8 Other surgical procedures as the cause of abnormal reaction of the patient, or of later complication, without mention of misadventure at the time of the procedure
CPT/HCPCS: 36415; 36600; 70450-TC; 71010-TC; 76705-TC; 76770-TC; 80048-TC; 80053-TC; 80061-TC; 80076-TC; 80202-TC; 81000-TC; 82140-TC; 82306; 82378; 82533; 82728-TC; 82746; 82803-TC; 82962-TC; 83540-TC; 83605-TC; 83690-TC; 83735-TC; 83880; 84100-TC; 84134-TC; 84439-TC; 84443-TC; 84484-TC; 84550-TC; 85025-TC; 85045-TC; 85385-TC; 85396; 85610-TC; 85652-TC; 85730-TC; 86704; 86705; 86706; 86803; 86850-TC; 87040-TC; 87070-TC; 87081-TC; 87086-TC; 87186-TC; 87340; 90935-TC; 92521; 92526; 92611-TC; 93307-TC; 94002-TC; 94003-TC; 94762-TC; 94799-TC; 97001-TC; 97110-TC; 97112-TC; 97530-TC; 99082-TC; A4216; A4606; A6248; A6253; A6402; A6403; C1750; C1751; J0692; J1170; J1250; J1720; J1815; J1940; J2185; J2270; J2370; J2916; J2920; J3370; J3475; J3480; J3490; J7030; J7040; J7042; J7050; J7060; P9016-BL; P9034-BL; P9047; Z7610

== ENCOUNTER 2017-03-03 18:11 | Emergency (ER) | payer MEDICARE ==
[~2017-03-03] VITALS: Ht 172.7 cm; Wt 83.9 kg
[~2017-03-03 18:11] MED LIST: ALLO100T PO; APIX2.5T PO; ASPI81TA2 PO; ATOR40TA PO; CHOL100044 PO; HYDR-3326 PO; LEVO88TA5 PO; PREG50CA PO; SERT50TA PO; TAMS-12 PO
--- NOTE | 2017-03-03 18:45 | NUR ---
PATIENT BIB RA D/T ABNORMAL LABS FROM [facility]. PATIENT IS A/OX 2. BREATHING EVEN AND UNLABORED, AUDIBLE CRACKELS HEARD. NO SOB. PATIENT HAS LCW HD CATH AND CARIAS CATH INTACT. SAFETY AND COMFORT MEASURES IN PLACE. AWAITING MD ORDERS.
--- NOTE | 2017-03-03 18:55 | NUR ---
NEW IV STARTED RIGHT FA, 20 G. URINE OBTAINED AND SENT TO LAB.
[2017-03-03 19:01] LABS: BASOPHILS % (AUTO) 0.2 % (0.0-2.0); EOSINOPHILS # (AUTO) 0.1 /CMM (0.0-0.7); EOSINOPHILS % (AUTO) 1.3 % (0.0-6.0); HEMATOCRIT 27 % (39-51); HEMOGLOBIN 8.4 g/dL (13.5-17.5); LYMPHOCYTES # (AUTO) 0.2 /CMM (0.8-4.8); LYMPHOCYTES % (AUTO) 2.9 % (20.0-44.0); MEAN CORPUSCULAR HEMOGLOBIN 29 PG (26.0-33.0); MEAN CORPUSCULAR HGB CONC 31 g/dl (31.0-36.0); MEAN CORPUSCULAR VOLUME 93 fL (80-96); MONOCYTES # (AUTO) 0.2 /CMM (0.1-1.30); MONOCYTES % (AUTO) 4.4 % (2.0-12.0); NEUTROPHILS # (AUTO) 5.1 /CMM (1.8-8.9); NEUTROPHILS % (AUTO) 91.2 % (43.0-81.0); PLATELET COUNT (AUTO) 51 /CMM (150-450); RED BLOOD CELL COUNT(AUTO) 2.86 MIL/uL (4.5-6.0); WHITE BLOOD COUNT (AUTO) 5.6 K/uL (4.3-11.0)
[2017-03-03 19:13] LABS: APPEARANCE,URINE Slightly Cloudy (CLEAR); BILIRUBIN,URINE Negative (NEGATIVE); BLOOD, URINE Moderate Ery/uL (NEGATIVE); COLOR,URINE Yellow (YELLOW); KETONES,URINE Negative (NEGATIVE); LEUKOCYTE ESTERASE ,URINE Small (NEGATIVE); NITRITE, URINE Negative (NEGATIVE); PROTEIN,URINE 100 mg/dl (NEGATIVE); UGLUCOSE Negative (NEGATIVE); UROBILINOGEN,URINE 0.2 EU/dL (0.2)
[2017-03-03 19:14] LABS: INR 1.3 (0.87-1.13); PROTHROMBIN TIME 13.7 SECS (9.5-12.7)
[2017-03-03 19:15] LABS: CALCIUM, SERUM 7.9 mg/dL (8.5-10.1); CARBON DIOXIDE 29 mmol/L (21-32); CHLORIDE 105 mmol/L (98-107); CREATININE 2.5 mg/dL (0.6-1.3); GLUCOSE 112 mg/dL (74-106); POTASSIUM 4.5 mmol/L (3.5-5.1); SODIUM SERUM 139 mmol/L (136-145); UREA NITROGEN, BLOOD 64 mg/dL (7-18)
--- NOTE | 2017-03-03 19:16 | NUR ---
REPORT GIVEN TO SRIRAM CUELLAR FOR DAMON.
--- NOTE | 2017-03-03 19:18 | NUR ---
PT APPEARS TO BE RESTING COMFORTABLY. PT'S IS AT THE BEDSIDE.
[2017-03-03 19:19] LABS: TROPONIN I 0.097 ng/mL (0.00-0.056)
[2017-03-03 19:21] LABS: ALANINE AMINOTRANSFERASE 20 U/L (12-78); ALBUMIN 2.2 g/dL (3.4-5.0); ALKALINE PHOSPHATASE 158 U/L (46-116); ASPARTATE AMINOTRANSFERASE 27 U/L (15-37); BILIRUBIN,DIRECT 0.6 mg/dL (0.0-0.2); TOTAL PROTEIN, SERUM 5.3 g/dL (6.4-8.2)
[2017-03-03 19:22] LABS: IRON, SERUM 26 ug/dl (50-175); TOTAL IRON BINDING CAPACITY 145 ug/dl (250-450)
[2017-03-03 19:35] LABS: FERRITIN 679 ng/mL (8-388)
[2017-03-03 19:40] LABS: BACTERIA,URINE Few /HPF (None Seen); SQUAMOUS EPITHELIAL CELL,UR Few /HPF (None Seen)
--- NOTE | 2017-03-03 19:40 | NUR ---
CALLED [employer] WAS PAGED.
[2017-03-03 19:41] LABS: FINE GRANULAR CASTS,URINE Few /LPF (None Seen); MUCUS,URINE Few /LPF (None Seen)
[2017-03-03 19:41] LABS: BAND % (MANUAL) 4 % (0.0-5.0); LYMPHOCYTES % (MANUAL) 1 % (16-48); MONOCYTES % (MANUAL) 3 % (0-11.0); NEUTROPHILS % (MANUAL) 92 (42-76)
--- NOTE | 2017-03-03 19:48 | NUR ---
DR. FITZPATRICK IS SPEAKING TO DR. JUAN RE: THE PT.
--- NOTE | 2017-03-03 19:49 | NUR ---
PER DR. JUAN, PT IS GOING BACK TO THE FACILITY.
--- NOTE | 2017-03-03 19:52 | NUR ---
DR. FITZPATRICK IS AT THE BEDSIDE SPEAKING TO THE PT AND HIS .
--- NOTE | 2017-03-03 20:01 | NUR ---
CALLED [facility]PONSE FOR TRANSPOR ETA OF 1HR WAS GIVEN.
--- NOTE | 2017-03-03 20:28 | NUR ---
CALLING [facility] TO GIVE REPORT. 4TH ATTEMPT. NO ANSWER.
--- NOTE | 2017-03-03 20:39 | NUR ---
CALLED [facility] 21 TIMES AND WAS HUNG UP ON. SPOKE TO A GENTLEMAN WHO ANSWERED THE PHONE AND TOLD HIM THE PT WAS RETURNING. HE HUNG UP THE PHONE.
--- NOTE | 2017-03-03 20:42 | NUR ---
MED RESPONSE ARRIVED REPORT GIVEN. CALLED [facility] ONE MORE TIME.
[2017-03-03 20:43] VITALS: BP 94/58
== END 2017-03-03 20:45 | disposition home or self-care (01) ==
LOC: ER 18:12
DX: D50.0 Iron deficiency anemia secondary to blood loss (chronic) (principal); D69.6 Thrombocytopenia, unspecified; D61.818 Other pancytopenia; E03.9 Hypothyroidism, unspecified; G93.40 Encephalopathy, unspecified; I13.2 Hypertensive heart and chronic kidney disease with heart failure and with stage 5 chronic kidney disease, or end stage renal disease; I48.91 Unspecified atrial fibrillation; I50.32 Chronic diastolic (congestive) heart failure; J15.0 Pneumonia due to Klebsiella pneumoniae; N17.9 Acute kidney failure, unspecified; N18.6 End stage renal disease; Z66 Do not resuscitate; Z79.01 Long term (current) use of anticoagulants; Z79.82 Long term (current) use of aspirin; Z99.2 Dependence on renal dialysis; Z88.8 Allergy status to other drugs, medicaments and biological substances
CPT/HCPCS: 36415; 71010; 80048; 80076; 81001; 82728; 83540; 83605; 84484; 85025; 85730; 86850; 87040 ×2; 87086; 93005; 99285; A4606; 81000-TC; Z7610